=== PATIENT | female | born 1930 | race Caucasian/White ===

== ENCOUNTER 2018-09-04 09:58 | Inpatient (IN) | payer MEDICARE, BC ==
[2018-09-04] MEDS ORDERED: Ondansetron INJ* 2 MG/ML VIAL IV ONE (10:20)
[2018-09-04] MEDS ORDERED: NS 0.9% 1000 ML* 1,000 ML IV ONE (10:20)
[2018-09-04] MEDS ORDERED: Morphine INJ* 4 MG/ML 1 ML SYRINGE (NEW SYRINGE VERSION) IV ONE (10:20)
--- NOTE | 2018-09-04 10:26 | ED ---
Lower Extremity - HPI Summary HPI Summary: Patient is a 87 y/o F w/ c/o left hip pain and inability to move her LLE. Patient was chasing her cat around her home when she had an unwitnessed fall this morning. No LOC is reported, patient is A&Ox3. Patient is on ASA, no blood thinners otherwise reported. On triage, pain is rated 8/10, . Home medications and allergies are reviewed. - History of Current Complaint Chief Complaint: EDHipPelvisInjury Stated Complaint: FALL, LEFT HIP PAIN Time Seen by Provider: 09/04/18 10:14 Hx Obtained From: Patient Mechanism Of Injury: Fall From A Standing Position Onset of Pain: Immediate, Prior to Arrival Onset/Duration: Hours - onset this morning Severity Currently: Severe - 8/10 Pain Intensity: 8 Pain Scale Used: 0-10 Numeric - 8/10 Timing: Constant Location: Is Discrete @ - left hip Associated Signs And Symptoms: Positive: Other - difficulty moving LLE - Allergies/Home Medications Allergies/Adverse Reactions: Allergies Allergy/AdvReac Type Severity Reaction Status Date / Time paroxetine Allergy Rash Verified 09/04/18 13:37 Penicillins Allergy Rash And Verified 09/04/18 13:37 Itching Home Medications: Home Medications Arformoterol (NF) [Brovana(NF)] 15 mcg INH BID 09/04/18 [History Confirmed 09/04] Aspirin EC TAB* [Ecotrin EC Low Dose 81 MG*] 81 mg PO DAILY 09/04/18 [History Confirmed 09/04/18] Atorvastatin* [Lipitor*] 40 mg PO DAILY 09/04/18 [History Confirmed 09/04/18] Budesonide NEB* [Pulmicort NEB*] 0.5 mg INH BID 09/04/18 [History Confirmed ] EPINEPHrine [Epipen 2-Steve] 0.3 mg IM ONCE PRN 09/04/18 [History Confirmed ] Empagliflozin [Jardiance] 10 mg PO DAILY 09/04/18 [History Confirmed 09/04/18] Fexofenadine (NF) [Hannah 180 (NF)] 180 mg PO DAILY 09/04/18 [History Confirmed 09/04/18] Ibuprofen TAB* [Advil TAB*] 400 - 600 mg PO DAILY PRN 09/04/18 [History Confirmed 09/04/18] Ipratropium 0.5MG/2.5ML NEB* [Atrovent 0.5 MG NEB.GREG*] 0.5 mg INH BID 09/04/18 [History Confirmed 09/04/18] Levothyroxine TAB* [Synthroid TAB*] 75 mcg PO DAILY 09/04/18 [History Confirmed 09/04/18] Losartan TAB* [Cozaar TAB*] 100 mg PO DAILY 09/04/18 [History Confirmed 09/04/18 ] Montelukast Sodium TAB* [Singulair TAB*] 10 mg PO QPM 09/04/18 [History Confirmed 09/04/18] Sertraline* [Zoloft*] 100 mg PO DAILY 09/04/18 [History Confirmed 09/04/18] SitaGLIPtin (NF) [Januvia (NF)] 100 mg PO DAILY 09/04/18 [History Confirmed ] Tiotropium CAP.INH* [Spiriva CAP.INH*] 1 cap.inh INH DAILY 09/04/18 [History Confirmed 09/04/18] glipiZIDE TAB.XL* [Glucotrol XL*] 10 mg PO DAILY 09/04/18 [History Confirmed ] metFORMIN* [Glucophage 1000 MG TAB *] 1,000 mg PO BID 09/04/18 [History Confirmed 09/04/18] PMH/Surg Hx/FS Hx/Imm Hx Endocrine/Hematology History: Reports: Hx Diabetes Cardiovascular History: Reports: Hx Hypercholesterolemia, Hx Hypertension Respiratory History: Reports: Hx Asthma Sensory History: Reports: Hx Contacts or Glasses, Hx Hearing Problem Opthamlomology History: Reports: Hx Contacts or Glasses Infectious Disease History: No Infectious Disease History: Denies: Traveled Outside the [place] in Last 30 Days - Family History Known Family History: Negative: Blood Disorder - Social History Alcohol Use: None Substance Use Type: Reports: None Smoking Status (MU): Never Smoked Tobacco Have You Smoked in the Last Year: No Review of Systems Positive: Other - left hip pain, difficulty moving LLE Negative: Syncope All Other Systems Reviewed And Are Negative: Yes Physical Exam - Summary Physical Exam Summary: Appearance: Well appearing, no pain distress Skin: warm, dry, reflects adequate perfusion Head/face: normal Eyes: EOMI, DILSHAD ENT: normal Neck: supple, non-tender Respiratory: CTA, breath sounds present Cardiovascular: RRR, pulses symmetrical Abdomen: non-tender, soft Bowel: present Musculoskeletal: tenderness at left hip, restriction of movement left leg, no neurovascular deficit is noted, no other abnormal findings. Neuro: normal, sensory motor intact, A&Ox3 Triage Information Reviewed: Yes Vital Signs On Initial Exam: Initial Vitals Temp Pulse Resp BP Pulse Ox 97.5 F 92 18 182/85 96 09/04/18 10:00 09/04/18 10:00 09/04/18 10:00 09/04/18 10:00 09/04/18 10:00 Vital Signs Reviewed: Yes Diagnostics - Vital Signs Vital Signs Temp Pulse Resp BP Pulse Ox 09/04/18 10:00 97.5 F 92 18 182/85 96 - Laboratory Result Diagrams: 09/04/18 11:30 09/04/18 11:30 Lab Statement: Any lab studies that have been ordered have been reviewed, and results considered in the medical decision making process. - Radiology CXR Radiology Interpretation Completed By: Radiologist Summary of Radiographic Findings: No evidence for acute findings, this report was reviewed by ED physician. hip/pelvis x-ray Radiology Interpretation Completed By: Radiologist Summary of Radiographic Findings: IMPRESSION: SLIGHTLY COMMINUTED MILDLY DISPLACED INTERTROCHANTERIC FRACTURE OF THE LEFT. FEMUR. THIS REPORT WAS REVIEWED BY ED PHYSICIAN. - EKG 1055 Cardiac Rate: NL - rate of 94 bpm EKG Rhythm: Sinus Rhythm Summary of EKG Findings: no acute changes. Re-Evaluation - Re-Evaluation First Eval Re-Evaluation Time: 11:14 Comment: Discussed x-ray results and consult with Dr. Panchal with patient. Plan of care was discussed as well. Patient is agreeable with admission. Lower Extremity Course/Dx - Course Course Of Treatment: Patient is a 87 y/o F w/ c/o left hip pain and inability to move her LLE. Patient was chasing her cat around her home when she had an unwitnessed fall this morning. No LOC is reported, patient is A&Ox3. Phyiscal exam showed tenderness at left hip, restriction of movement left leg, no neurovascular deficit is noted, no other abnormal findings. During ED course, patient received fluids, Zofran and morphine. EKG showed sinus rhythm w/ rate of 94 BPM, no acute changes. CXR showed no evidence for acute findings. HIP/ PELVIS X-RAY: IMPRESSION: SLIGHTLY COMMINUTED MILDLY DISPLACED INTERTROCHANTERIC FRACTURE OF THE LEFT. FEMUR. Dr. Panchal was consulted on patient's hip fracture. Admission is recommended. 1215 - Patient's case was discussed with Dr. Mack. Dr. Mack accepts patient for admission. Patient is agreeable with admission. Dx of left hip fracture. - Diagnoses Differential Diagnosis/HQI/PQRI: Positive: Dislocation, Fracture (Closed) Provider Diagnoses: Hip fracture, left - Physician Notifications Discussed Care Of Patient With: Vinh Panchal Time Discussed With Above Provider: 11:13 Instructed by Provider To: Other - 1113 - Dr. Panchal was consulted on patient' s hip fracture. 1215 - Patient's case was discussed with Dr. Mack. Dr. Mack accepts patient for admission. Discharge - Sign-Out/Discharge Documenting (check all that apply): Patient Departure - admit - Discharge Plan Condition: Good Disposition: ADMITTED TO [facility] - Billing Disposition and Condition Condition: GOOD Disposition: Admitted to [facility] - Attestation Statements Document Initiated by Scribe: Yes Documenting Scribe: John Billy Provider For Whom Scribe is Documenting (Include Credential): Meet Gomez MD Scribe Attestation: IJohn , scribed for Meet Gomez MD on 09/04/18 at 1437. Scribe Documentation Reviewed: Yes Provider Attestation: The documentation as recorded by the kanikaibJohn morales accurately reflects the service I personally performed and the decisions made by me, Meet Gomez MD
--- NOTE | 2018-09-04 11:10 | RAD ---
INDICATION: Hip fracture. COMPARISON: Comparison is made with a prior study from July 02, 2016. TECHNIQUE: An AP supine film of the chest was obtained. FINDINGS: The heart is within normal limits in size. Mediastinal and hilar contours appear within normal limits. The lungs are hyperinflated and clear. No pleural effusion is seen. IMPRESSION: NO EVIDENCE FOR ACUTE FINDING.
--- NOTE | 2018-09-04 11:13 | RAD ---
INDICATION: Left hip injury. COMPARISON: There are no relevant prior studies available for comparison. TECHNIQUE: An AP view of the pelvis and frontal and lateral views of the left hip were obtained. FINDINGS: There is a slightly comminuted intertrochanteric fracture of the left femur with slight separation of the fracture fragments. 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 IMPRESSION: SLIGHTLY COMMINUTED MILDLY DISPLACED INTERTROCHANTERIC FRACTURE OF THE LEFT FEMUR.
[2018-09-04 12:08] LABS: ABS Basophils 0.1 10^3/ul (0-0.2); ABS Eosinophils 0.2 10^3/ul (0-0.6); ABS Lymphocytes 1.7 10^3/ul (1.0-4.8); ABS Monocytes 0.5 10^3/ul (0-0.8); ABS Neutrophils 8.4 10^3/ul (1.5-7.7); ABS Nucleated RBC 0 10^3/ul; Eosinophil % 2.3 % (0-6); Hematocrit 38 % (35-47); Hemoglobin 12.1 g/dl (12.0-16.0); Lymphocyte % 15.4 % (25-47); Mean Corpuscular HGB Conc 32 g/dl (31-36); Mean Corpuscular Hemoglobin 26 pg (27-31); Mean Corpuscular Volume 82 fL (80-97); Nucleated Red Blood Cells % 0; Platelet Count Platelets clumped. 10^3/ul (150-450); Red Cell Distribution Width 16 % (10.5-15); White Blood Count 10.9 10^3/ul (3.5-10.8)
[2018-09-04 12:12] LABS: INR 0.93 (0.77-1.02)
[2018-09-04 12:13] LABS: EGFR Non-African American 54.8 (>60)
[2018-09-04] MEDS ORDERED: Albuterol 2.5 MG/3 ML NEB.SOL* (0.083%) INH PRN (13:29)
[2018-09-04] MEDS ORDERED: Acetaminophen TAB* 325 MG PO PRN (13:29)
[2018-09-04] MEDS ORDERED: Morphine INJ* 4 MG/ML 1 ML SYRINGE (NEW SYRINGE VERSION) IV PRN (13:29)
[2018-09-04] MEDS ORDERED: oxyCODONE/Acetamin 5/325 MG* TAB PO PRN (13:29)
[2018-09-04] MEDS ORDERED: Albuterol/Ipratropium NEB.SOL* Albuterol 2.5 MG/Ipratropium 0.5 MG 3 ML INH PRN (13:46)
[2018-09-04] MEDS ORDERED: Dextrose 50% Syringe 50 ML* 25 GM/50 ML SYRINGE IV PUSH PRN (13:48)
[2018-09-04] MEDS ORDERED: Albuterol HFA INHALER* 8 gm MDI INH PRN (14:02)
[2018-09-04 16:05] LABS: Platelet Count Platelets clumped. 10^3/ul (150-450)
[2018-09-04] MEDS: Heparin VIAL(*) 5000 UNITS/ML VIAL (FIVE THOUSAND) SUBCUT SCH ×2 (16:12→21:44)
[2018-09-04] MEDS: Montelukast Sodium TAB* 10 MG PO SCH (17:23)
[2018-09-04] MEDS: Morphine INJ* 4 MG/ML 1 ML SYRINGE (NEW SYRINGE VERSION) IV PRN (17:23)
[2018-09-04] MEDS: Insulin LISPRO* 1 UNITS UNIT SUBCUT SCH ×2 (18:33→21:43)
[2018-09-04] MEDS: Budesonide NEB* 0.5 MG/2 ML NEB.SOLN INH SCH (19:31)
--- NOTE | 2018-09-04 20:50 | HP ---
AMENDED REPORT NOW INCLUDES DESIGNATED COSIGNER CC: Dr. Abahy Fink * HISTORY AND PHYSICAL: DATE OF ADMISSION: 09/04/18 PRIMARY CARE PHYSICIAN: Dr. Abhay Fink. PROVIDER: Nesha Lora NP ATTENDING PHYSICIAN: Dr. Mack * (dictated by Nesha Lora NP). CONSULTING PHYSICIAN: Dr. Panchal. CHIEF COMPLAINT: Left hip pain status post fall. HISTORY OF PRESENT ILLNESS: This is an 87-year-old female with a past medical history of type 2 diabetes (not on insulin); asthma; hypertension; hyperlipidemia; hypothyroidism; depression, who presented to the ED with left hip pain and inability to move her left lower extremity after a mechanical fall. The patient was in her usual state of health this morning, but she was chasing her cat around the house and slipped and fell. She denies loss of consciousness and she did not hit her head. Prior to this incident, she did not feel any dizziness or lightheadedness, chest pain, or shortness of breath. Upon arrival to the ED, the patient was in 8/10 pain and was given morphine with some relief. The patient is alert and oriented x3. She is on aspirin, but no blood thinners are reported. In the ED, her vital signs were stable and labs were unremarkable. She underwent an EKG, which showed normal sinus rhythm without any evidence of ischemia or infarction; chest x-ray, which showed no evidence of acute findings; a hip and pelvis x-ray, which showed a slightly comminuted, mildly displaced intertrochanteric fracture of the left femur. The patient was evaluated by Dr. Panchal in the ED with a plan for a gamma nail procedure for the left hip fracture repair tomorrow. Hospitalist team was asked to evaluate this patient for admission. She will be admitted to the hospitalist service for left hip fracture in anticipation of surgical repair. PAST MEDICAL HISTORY: Diabetes, type 2, not on home insulin; asthma; hypertension; hyperlipidemia; hypothyroidism; depression. PAST SURGICAL HISTORY: Tonsillectomy, cataract surgery. HOME MEDICATIONS: 1. Glipizide 10 mg p.o. daily. 2. Singulair 10 mg p.o. q.p.m. 3. Aspirin 81 mg p.o. daily. 4. Synthroid 75 mcg p.o. daily. 5. Januvia 100 mg p.o. daily. 6. Zoloft 100 mg p.o. daily. 7. Losartan 100 mg p.o. daily. 8. Hannah 180 mg p.o. daily. 9. Empagliflozin 10 mg p.o. daily. 10. Metformin 1000 mg p.o. daily. 11. Atorvastatin 40 mg p.o. daily. 12. Ibuprofen 400 to 600 mg p.o. daily p.r.n. 13. Epinephrine/EpiPen 0.3 mg IM once p.r.n. for bee stings. The patient is also prescribed the following inhalers; however, she reports infrequent use: 1. Pulmicort is prescribed 0.5 mg INH b.i.d. 2. Atrovent 0.5 mg nebulizer is prescribed 0.5 mg INH b.i.d. 3. Spiriva is prescribed 1 cap INH daily. 4. Brovana is prescribed 15 mcg INH b.i.d. ALLERGIES: PAXIL, rash and itching; PENICILLINS, rash and itching; BEE STINGS. FAMILY HISTORY: The patient has a family history of heart disease; both her mother and father of myocardial infarctions. The patient has no family history of diabetes or cancer. SOCIAL HISTORY: The patient does not smoke cigarettes and does not drink alcohol. The patient would like to be a full code. The patient's medical decision maker is her daughter, Blossom Rubi. REVIEW OF SYSTEMS: I performed a 14-point review of systems. All the pertinent positives and negatives are mentioned in the history of present illness. The remaining review of systems is negative. PHYSICAL EXAMINATION GENERAL APPEARANCE: The patient is alert, pleasant, and appears to be in no acute distress except when moving her left lower extremity. VITAL SIGNS: Temperature 97.5, heart rate 86, blood pressure 113/66, O2 sat 98 % on room air. HEENT: Normocephalic, atraumatic. Pupils are equal, round, and reactive to light and accommodation. Extraocular movements are intact. NECK: Supple. No lymphadenopathy noted. No JVD appreciated. RESPIRATORY: No accessory muscle use. Lungs are clear to auscultation. Normal work of breathing. The patient is able to speak in full sentences without distress. CARDIAC: Regular rate and rhythm. S1 and S2 present. No murmurs, rubs, or gallops heard. ABDOMEN: Soft, nontender, and nondistended. There are bowel sounds x4. EXTREMITIES: No lower extremity edema. DP and PT pulses are 2+ and symmetric. MUSCULOSKELETAL: No clubbing or cyanosis noted. Tenderness at the left hip, restriction of movement of the left hip. The patient exhibited 5/5 strength in upper extremities; however, motion limited by pain in lower extremities. NEURO: The patient is alert and oriented x3. Sensation is intact. PSYCH: The patient is calm and cooperative. SKIN: The are no rashes or abnormalities seen. DIAGNOSTIC STUDIES/LAB DATA: White blood cell count 10.9, hemoglobin 12.1, hematocrit 38, MCV 82, MCH 26, MCHC 32, RDW 16, and platelet count, the platelets were clumped but this number will be redrawn. Coagulation: INR 0.93 , aPTT 24.8. Sodium 139, potassium 4.5, chloride 105, carbon dioxide 27, BUN 12 , creatinine 0.96, glucose 182, calcium 9.4. Total bilirubin 0.5, AST 17, ALT 13, alk phos 137. Total protein 7.2, albumin 4.0, globulin 3.2, albumin/ globulin ratio 1.3. EKG: normal sinus rhythm without evidence of ischemia. Hip/Pelvis x-ray: Slightly comminuted and mildly displaced intertrochanteric fracture of the left femur. Chest x-ray: no evidence for acute findings. ASSESSMENT AND PLAN: This is an 87-year-old female with a past medical history significant for diabetes, asthma, hypertension, hyperlipidemia, and hypothyroidism, who presented to the ED with left hip pain status post mechanical fall and will be admitted to the hospitalist service for gamma nail procedure for her left hip fracture and will be followed by Dr. Panchal and the ortho team as well. 1. Left hip fracture. Pain will be controlled with IV morphine. Received 4 mg IV morphine in the ED. Can add additional agents as necessary. The patient has been evaluated by Orthopedics and they are recommending she undergo a gamma nail procedure for her left hip fracture as demonstrated on her hip and pelvis x -ray. In anticipation of this, her home aspirin is being held. The patient's functional capacity is a METs score of 4. She is able to walk up a flight of stairs with a grocery bag without shortness of breath or chest pain. The patient denies chest pain, shortness of breath, syncope, or palpitations. The patient's only cardiac diagnosis is hypertension. She denies a history of ischemic, valvular, or myopathic disease. She does have a history of diabetes, not on insulin, and she does not have a history of cerebrovascular or peripheral artery disease. The patient underwent an EKG today, which showed normal sinus rhythm without evidence of ischemia. She also underwent a chest x- ray today, which showed no acute cardiopulmonary disease. Her preoperative creatinine is 0.96. According to the RCRI, she has no risk factors, which placed her at a 0.4% risk of cardiac event. No further cardiac workup is required at this time. Fouzia Rubi is medically optimized and may proceed for the anticipated procedure. 2. Diabetes. Glucose in the ED is 182. The patient's oral medication is on hold. We will start her on sliding scale lispro a.c., h.s. as well as a.c., h.s. fingersticks. We will also follow up hemoglobin A1c. 3. Asthma. No evidence of acute exacerbation. No wheezing on exam. The patient does not report shortness of breath and is satting 97% on room air. The patient's med list contains multiple inhalers including Pulmicort, Spiriva, Brovana, and Atrovent nebulizer; however, the patient reports very infrequent use and does not recall the last time she has had an exacerbation. We will proceed with scheduled Pulmicort and DuoNeb p.r.n. as well as albuterol inhaler p.r.n. 4. Hypothyroid. Continue the patient's home Synthroid 75 mcg p.o. daily. 5. Hypertension. The patient was initially hypertensive upon arrival to the ED in the setting of increased pain; however, after she has received morphine, her blood pressure is now systolic 104 to one teens and we will continue holding her antihypertensives and can reevaluate later as necessary. 6. Hyperlipidemia. We will continue the patient's home Lipitor. 7. Diet: The patient is on a carb controlled diet. She will be n.p.o. after midnight for her anticipated procedure. 8. DVT prophylaxis: The patient will be on heparin subcu until midnight in anticipation of her procedure tomorrow. She will also have SCDs as tolerated. 9. Code status: Full code. 10. Disposition: Inpatient. Anticipate discharge when medically stable. TIME SPENT: Time spent for this admission was 60 minutes; 35 minutes was spent with the patient discussing medications, past medical history, and events leading up to their arrival today and performing a physical exam. The case has been reviewed with the attending, Dr. Mack, who agrees with the plan of care. NESHA LORA, ADRIANNA [id number]/CPS #: [id number] ADILENE
--- NOTE | 2018-09-04 22:21 | CONS ---
INITIAL BRIEF CONSULT REPORT: DATE OF CONSULT: 09/04/18 The patient was seen by myself in the emergency department for a left intertrochanteric hip fracture. The plan is to admit the patient to the floor. She may eat today, but she will be NPO after midnight. Plan is to take her to the OR tomorrow morning on 09/05/18 for a gamma nail pending medical clearance. A full consultation report to be dictated shortly. ODILIA CRESPO CONSULTATION REPORT: DATE OF CONSULT: 09/04/18 ATTENDING SURGEON: Dr. Vinh Panchal. CHIEF COMPLAINT: Left hip pain. HISTORY OF PRESENT ILLNESS: The patient is an 87-year-old female who presented to the ER with left hip pain and inability to move her left lower extremity after a fall. She states she was chasing her cat around the home when she had an unwitnessed fall on to her left hip. She denies any prior hip fractures or pain in the hip. She denies any prior surgeries. She is on aspirin, no blood thinners otherwise. She rates her pain as an 8/10. She denies history of DVT or PE. She denies numbness, tingling, fever, or chills, and is doing well otherwise. PAST MEDICAL HISTORY: Diabetes, hypercholesterolemia, hypertension, asthma, decreased hearing. PAST SURGICAL HISTORY: No prior surgeries. MEDICATIONS: Home medications on admission: 1. Glipizide 10 mg 1 by mouth daily. 2. Singulair 10 mg 1 by mouth in the evening. 3. Aspirin 81 mg 1 by mouth daily. 4. Levothyroxine 75 mcg 1 by mouth daily. 5. Januvia 100 mg 1 by mouth daily. 6. Zoloft 50 mg tab, 2 tabs by mouth daily. 7. Losartan 25 mg tablets 100 mg by mouth daily. 8. Hannah 180 mg 1 by mouth daily. 9. Pulmicort 0.5 mg/2 mL, 0.5 mg inhalation twice a day. 10. Atrovent 0.5 mg inhalation twice a day. 11. Jardiance 10 mg by mouth daily. 12. Metformin 1000 mg by mouth twice a day. 13. Lipitor 40 mg 1 by mouth daily. 14. Spiriva 1 cap/18 mcg, 1 cap inhalation daily. 15. Ibuprofen 200 mg, 400 to 600 mg by mouth daily as needed. 16. EpiPen 0.3 mg/0.3 mL IM once as needed. 17. Brovana 15 mcg/2 mL, 15 mcg inhalation twice a day. ALLERGIES: PAROXETINE and PENICILLIN. FAMILY HISTORY: Denies pertinent family history. SOCIAL HISTORY: She denies tobacco use, alcohol use, or illegal drug use. She lives at home. She is normally an independent ambulator. REVIEW OF SYSTEMS: A 14-point review of systems was reviewed with the patient. Positive for left hip pain, difficulty moving left lower extremity, otherwise negative. Denies chest pain, shortness of breath, fever, chills, history of DVT or PE, history of bleeding disorder. PHYSICAL EXAM: General: An 87-year-old, well-developed, well-nourished female , in no acute distress. Alert and oriented x3. Appropriate mood and affect. Appropriate balance and coordination of the lower extremities. Vitals on admission, temperature 98.8, pulse rate 84, respiratory rate 18, O2 sat 99% on room air, blood pressure 114/84, weight 145 pounds, height 5 feet 2 inches. HEENT: Normocephalic, atraumatic. PERRLA. Throat clear. Neck: Supple. Pulmonary: Lungs clear to auscultation bilaterally. No wheezing, rhonchi, or rales. Cardio: Regular rate and rhythm. S1 and S2. No murmurs, gallops, or rubs. No edema. Abdomen: Positive bowel sounds, soft, nontender. Extremities : Left lower extremity is intact. No warmth or erythema. Tenderness to palpation over the left hip in the upper thigh, nontender over the knee. Calf is soft and nontender. +5/5 strength to ankle dorsiflexion and plantar flexion. +2 DP pulse. Sensation is intact to light touch distally. Neuro: Alert and oriented x3. Cranial nerves grossly intact. Sensation is intact to light touch distally. DIAGNOSTIC STUDIES: Multiple view x-rays of the left hip revealed a mildly displaced intertrochanteric fracture of the left femur. IMPRESSION: Left intertrochanteric mildly displaced fracture of the left femur. PLAN: The patient is an 87-year-old female who is admitted to the hospital for left femur intertrochanteric fracture after a fall on 09/04/18, chasing her cat. She was admitted for medical clearance and the plan is for her to go to the OR on 09/05/[address] Panchal for gamma nail pending medical clearance. We will continue to follow her postoperatively. ODILIA CRESPO [id number]/CPS #: [id number]/CPS #: [id number] ADILENE
--- NOTE | 2018-09-04 22:46 | CONS ---
BRIEF CONSULT REPORT: DATE OF CONSULT: 09/04/18 The patient was seen by myself in the emergency department for a left intertrochanteric hip fracture. The plan is to admit the patient to the floor. She may eat today, but she will be NPO after midnight. Plan is to take her to the OR tomorrow morning on 09/05/18 for a gamma nail pending medical clearance. A full consultation report to be dictated shortly. ODILIA CRESPO [id number]/[facility] #: [id number] MTDD
[2018-09-05] MEDS: Morphine INJ* 4 MG/ML 1 ML SYRINGE (NEW SYRINGE VERSION) IV PRN ×2 (00:33→08:54)
[2018-09-05 01:30] LABS: Urine Appearance Clear; Urine Blood Negative (Negative); Urine Color Yellow; Urine Ketones Trace (Negative); Urine Protein Negative (Negative); Urine Red Blood Cell Trace(0-2/hpf) (Absent); Urine Specific Gravity 1.026 (1.010-1.030); Urine Urobilinogen Negative (Negative); Urine White Blood Cell Trace(0-5/hpf) (Absent)
[2018-09-05] MEDS: Levothyroxine TAB* 75 MCG TAB PO SCH ×2 (05:30→06:09)
[2018-09-05 05:50] LABS: ABS Basophils 0 10^3/ul (0-0.2); ABS Eosinophils 0 10^3/ul (0-0.6); ABS Lymphocytes 1.5 10^3/ul (1.0-4.8); ABS Monocytes 0.6 10^3/ul (0-0.8); ABS Neutrophils 5.5 10^3/ul (1.5-7.7); ABS Nucleated RBC 0 10^3/ul; Eosinophil % 0.4 % (0-6); Hematocrit 29 % (35-47); Hemoglobin 9.3 g/dl (12.0-16.0); Lymphocyte % 19.3 % (25-47); Mean Corpuscular HGB Conc 32 g/dl (31-36); Mean Corpuscular Hemoglobin 26 pg (27-31); Mean Corpuscular Volume 83 fL (80-97); Nucleated Red Blood Cells % 0; Red Blood Count 3.54 10^6/ul (4.00-5.40); Red Cell Distribution Width 17 % (10.5-15); White Blood Count 7.6 10^3/ul (3.5-10.8)
[2018-09-05 06:00] LABS: EGFR Non-African American 51.7 (>60)
[2018-09-05 06:12] LABS: Platelet Count Platelets clumped. 10^3/ul (150-450)
[2018-09-05] MEDS: Budesonide NEB* 0.5 MG/2 ML NEB.SOLN INH SCH ×2 (07:45→19:58)
[2018-09-05] MEDS: Insulin LISPRO* 1 UNITS UNIT SUBCUT SCH ×4 (08:57→22:01)
[2018-09-05] MEDS: Atorvastatin* 40 MG TAB PO SCH (08:57)
[2018-09-05] MEDS: Sertraline* 100 MG TAB PO SCH (08:57)
[2018-09-05] MEDS ORDERED: ceFAZolin 2 GM PREMIX in ORs 2 GM/50 ML BAG IVPB ONE (12:59)
--- NOTE | 2018-09-05 13:18 | PN ---
Progress Note - Progress Note Date of Service: 09/05/18 SOAP: Subjective: 87yo female, fell due to a cat, sustaining a minimally displaced intertroch fx. Also c/o left shoulder pain this AM. Objective: No ecchymosis, skin intact over the shoulder. Has IV board holding elbow straight, pain with initiating arm elevation. I can passively do small circles and there is no crepitance and no pain. Assessment: Left hip fx, left shoulder pain Plan: Gamma nail for the left hip today, will do an exam under anesthesia to check shoulder and obtain x-rays of the shoulder. Platelets clumped again this AM, repeat CBC sent. If clumped again, will likely get heme consult.
[2018-09-05] MEDS ORDERED: Midazolam* 1 MG/ML 2 ML VIAL (2 MG) ONE (13:56)
[2018-09-05] MEDS ORDERED: fentaNYL* 50 MCG/ML 2 ML VIAL (100 MCG VIAL) ONE (13:56)
[2018-09-05] MEDS ORDERED: Bupivacaine 0.25% W/EPI* 10 ML SDV ONE ×2 (14:22)
[2018-09-05] MEDS ORDERED: Ondansetron INJ* 2 MG/ML VIAL IV PRN ×2 (14:52→17:05)
[2018-09-05] MEDS ORDERED: fentaNYL* 50 MCG/ML 2 ML VIAL (100 MCG VIAL) IV PRN (14:52)
[2018-09-05] MEDS ORDERED: Naloxone* 0.4 MG/ML 1 ML VIAL IV PRN (14:52)
[2018-09-05] MEDS ORDERED: EPHEDrine (Pressors)* 50 MG/ML VIAL ONE (15:12)
[2018-09-05] MEDS ORDERED: Phenylephrine INJ* 10 MG/ML 1 ML VIAL (10 MG) ONE (15:12)
--- NOTE | 2018-09-05 15:30 | PN ---
Subjective Date of Service: 09/05/18 Interval History: resting in bed c/o left hip and left shoulder pain. Denies chest pain or shortness of breath. Denies abd pain n/v/d. denies fever or chills Family History: Unchanged from Admission Social History: Unchanged from Admission Past Medical History: Unchanged from Admission Objective Active Medications: Acetaminophen (Tylenol Tab*) 650 mg PO Q4H PRN PRN Reason: FEVER/PAIN Albuterol (Ventolin Hfa Inhaler*) 1 puff INH Q4H PRN PRN Reason: SOB/WHEEZING Albuterol/Ipratropium (Duoneb (Albuterol 2.5 Mg/Ipratropium 0.5 Mg)) 1 neb INH [id number] AWAKE PRN PRN Reason: SOB/WHEEZING Last Admin: 09/04/18 15:11 Dose: 1 neb Atorvastatin Calcium (Lipitor*) 40 mg PO DAILY [facility] Last Admin: 09/05/18 08:57 Dose: Not Given Budesonide (Pulmicort Neb*) 0.5 mg INH BID [facility] Last Admin: 09/05/18 07:45 Dose: 0.5 mg Dextrose (D50w Syringe 50 Ml*) 12.5 gm IV PUSH .FOR FS < 60 - SS PRN PRN Reason: FS < 60 Fentanyl Citrate (Fentanyl*) 10 mcg IV Q2M PRN PRN Reason: PAIN - MODERATE Sodium Chloride (Ns 0.9% 1000 Ml*) 1,000 mls @ 75 mls/hr IV PER RATE [facility] Last Admin: 09/05/18 00:00 Dose: 75 mls/hr Cefazolin Sodium/Dextrose (Kefzol 2 Gm Premix In Ors(*)) 2 gm in 50 mls @ 100 mls/hr IVPB ONCALL ONE Stop: 09/06/18 13:14 Insulin Human Lispro (Humalog*) 0 units SUBCUT ACHS [facility]; Protocol Last Admin: 09/05/18 11:55 Dose: Not Given Levothyroxine Sodium (Synthroid Tab*) 75 mcg PO DAILY@0600 [facility] Last Admin: 09/05/18 06:09 Dose: Not Given Levothyroxine Sodium (Synthroid Inj*) 37.5 mcg IV 0600 ONE Stop: 09/06/18 06:01 Montelukast Sodium (Singulair Tab*) 10 mg PO QPM [facility] Last Admin: 09/04/18 17:23 Dose: 10 mg Morphine Sulfate (Morphine Inj (Syringe)*) 2 mg IV Q2H PRN PRN Reason: PAIN - SEVERE Last Admin: 09/05/18 08:54 Dose: 2 mg Naloxone HCl (Narcan*) 0.08 mg IV Q2M PRN PRN Reason: severe induced resp depression Ondansetron HCl (Zofran Inj*) 4 mg IV ONCE PRN PRN Reason: NAUSEA/VOMITING Sertraline HCl (Zoloft*) 100 mg PO DAILY [facility] Last Admin: 09/05/18 08:57 Dose: Not Given Vital Signs - 8 hr 09/05/18 09/05/18 09/05/18 07:44 07:47 08:00 Temperature 98.7 F Pulse Rate 95 92 Respiratory 18 17 18 Rate Blood Pressure 123/61 (mmHg) O2 Sat by Pulse 95 96 Oximetry 09/05/18 09/05/18 09/05/18 08:54 09:50 11:42 Temperature 98.8 F Pulse Rate 90 Respiratory 18 16 18 Rate Blood Pressure 123/48 (mmHg) O2 Sat by Pulse 96 Oximetry Oxygen Devices in Use Now: None Appearance: alert and oriented x3 , no acute distress Eyes: No Scleral Icterus Ears/Nose/Mouth/Throat: Clear Oropharnyx, Mucous Membranes Moist Neck: NL Appearance and Movements; NL JVP, Trachea Midline Respiratory: Symmetrical Chest Expansion and Respiratory Effort, Clear to Auscultation Cardiovascular: NL Sounds; No Murmurs; No JVD, No Edema Abdominal: NL Sounds; No Tenderness; No Distention Extremities: No Edema, No Clubbing, Cyanosis, - - radial pulses + 2 bilat, left shoulder with tenderness with palpation. left hip/ thigh pain Skin: No Rash or Ulcers Neurological: Alert and Oriented x 3 Nutrition: Taking PO's Result Diagrams: 09/06/18 11:05 09/06/18 05:28 Assess/Plan/Problems-Billing Assessment: Ms. Rubi is a 87 y.o female with a pmhx of asthma, DM, HLD, hypothyroid and htn who presented to [facility] after a fall at home c/o left hip and left shoulder pain. Patient was found to have a left hip fracture. - Patient Problems (1) Hip fracture, left Current Visit: Yes Status: Acute Code(s): S72.002A - FRACTURE OF UNSP PART OF NECK OF LEFT FEMUR, INIT SNOMED Code(s): 029025788 Comment: OR today management per ortho Pt/OT per ortho DVT prop per ortho (2) Asthma Current Visit: No Status: Acute Code(s): J45.909 - UNSPECIFIED ASTHMA, UNCOMPLICATED SNOMED Code(s): 221818202 Comment: Lungs clear. Continue home medications. (3) Anemia Current Visit: Yes Status: Acute Code(s): D64.9 - ANEMIA, UNSPECIFIED SNOMED Code(s): 685442191 Comment: suspect this is acute blood loss anemia d/t left hip fracture - this could also be partially dilutional - will continue to monitor h/h and treat if needed (4) HTN (hypertension) Current Visit: Yes Status: Acute Code(s): I10 - ESSENTIAL (PRIMARY) HYPERTENSION SNOMED Code(s): 80332275 Comment: -will resume losartan after surgery (5) HLD (hyperlipidemia) Current Visit: Yes Status: Acute Code(s): E78.5 - HYPERLIPIDEMIA, UNSPECIFIED SNOMED Code(s): 88907556 Comment: continue atrovasatin (6) Hypothyroid Current Visit: Yes Status: Acute Code(s): E03.9 - HYPOTHYROIDISM, UNSPECIFIED SNOMED Code(s): 35885435 Comment: continue levothyroxine will check tsh in the AM (7) DM2 (diabetes mellitus, type 2) Current Visit: No Status: Acute Comment: Hold home oral hypoglycemics. Lispro SS fingersticks AC/hs (8) DVT prophylaxis Current Visit: No Status: Acute Code(s): VGS2990 - SNOMED Code(s): 430268517 Comment: SCD's (9) Full code status Current Visit: Yes Status: Acute Code(s): Z78.9 - OTHER SPECIFIED HEALTH STATUS SNOMED Code(s): 595830970 Status and Disposition: inpatient - may need STR at discharge
--- NOTE | 2018-09-05 17:31 | RAD ---
INDICATION: Left hip gamma nail. COMPARISON: Comparison is made with a prior x-ray study of the left hip from September 04, 2018. TECHNIQUE: 59.9 seconds of intermitted fluoroscopic were provided and 4 AP and lateral spot films of the left hip were obtained in the operating room. FINDINGS: The films demonstrate operative reduction and internal fixation of the intertrochanteric fracture with a gamma nail and intramedullary christine in the proximal left femur. IMPRESSION: INTRAOPERATIVE CONTROL FILMS. CPT II Codes: G9500
[2018-09-05] MEDS: Montelukast Sodium TAB* 10 MG PO SCH (17:36)
[2018-09-05] MEDS: oxyCODONE/Acetamin 5/325 MG* TAB PO PRN (18:29)
[2018-09-05] MEDS: NS 0.9% 1000 ML* 1,000 ML IV SCH ×2 (18:29)
[2018-09-05] MEDS: ceFAZolin 1 GM* X 3 DOSES POST-OP Q8H (AddVan) IVPB SCH ×2 (21:50)
--- NOTE | 2018-09-05 23:59 | OP ---
OPERATIVE REPORT: DATE OF OPERATION: 09/05/18 DATE OF : [birth year] SURGEON: Vinh Panchal MD ANESTHESIA: General. PRE-OP DIAGNOSIS: Displaced left intertrochanteric fracture. POST-OP DIAGNOSIS: Displaced left intertrochanteric fracture. OPERATIVE PROCEDURE: Open reduction internal fixation, left intertrochanteric fracture with a short gamma nail. INDICATIONS: Ms. Rubi is an 87-year-old female, who had fallen because of her cat yesterday morning and sustained a displaced left intertrochanteric fracture. She had been brought to the emergency room here at [facility] [place] [place] where x-rays had been taken and found the fracture. She was admitted to the hospitalist service and I had seen her yesterday and discussed with Ms. Rubi and her daughter that an ORIF should work well to hold the bones in place while they heal. This way we can get her up and out of bed and moving fairly quickly. Risks of surgery such as infection, nonhealing of the bones, scar formation, stiffness, DVT, and pulmonary embolism were some of the risks discussed. She had been declared medically optimized and wished to proceed. ESTIMATED BLOOD LOSS: 50 cc. COMPLICATIONS: None. DESCRIPTION OF PROCEDURE: The patient was brought to the OR and an LMA was placed. She was then transferred to the fracture table and care was taken to make sure that she was nicely padded on the extremities and she was positioned on the fracture table such that C-arm could be brought in and good views of the left hip could be obtained. She also was placed into traction and a closed reduction was first performed and I was able to obtain perfect alignment of her fracture. Left hip area was prepped and then draped. Skin over the incisional area was infiltrated using 0.25% Marcaine with epinephrine. A total of 30 cc would be used through the case. Incision was made above the level of the greater trochanter and carried down through the skin and subcutaneous tissues. Fascia was palpated and sharply incised. Using just a curved hemostat, I was able to feel the top side of the greater trochanter and this was spread a little bit to allow for a tract so that I could place the awl. Awl was then placed and adjusted and so thought I had a very good entry point and this was gently pushed inwards. This was checked in AP and lateral planes and adjusted until my alignment was perfect and then this was pushed further in. Guidewire was then slid through the awl and the awl was removed. Positioning appeared quite good. Drill guide was placed over the top side of the awl and the reamer was easily passed. Gamma nail was called for and gamma nail was easily seated by hand. I could seat a little too far down and this had to be pulled upwards a little bit until I liked where the hip screw would enter through the neck and into the head. Guide was placed and skin was again infiltrated and then incised. The guidewire was run and adjusted until I liked the positioning through the neck and into the head. Measuring stick was not present, so we measured the portion of the guidewire sticking out and it appeared that the entire length of the guidewire which was within the bone was approximately 100 mm. Tip was about 5 mm from the edge of the cortex, so I thought 95 mm would be appropriate for a lag screw. Reamer was set for 95 mm and reamed and this seemed to work well. Lag screw was placed and a nice bite was obtained. This was compressed a little bit by using the back thread on the lag screw guide and then the locking screw was placed. Distal dynamic lock was then aligned and in standard fashion a screw was placed. Wounds were irrigated using a bulb syringe and where the hip screw had been placed, the fascia and subcutaneous tissues were approximated using a 2-0 Vicryl. Skin was closed using benny. Sterile dressing was applied. The patient had the LMA removed in the OR and was stable on transfer to the recovery room. [id number]/JONATHAN #: [id number] ADILENE
[2018-09-06] MEDS: Levothyroxine TAB* 75 MCG TAB PO SCH (05:15)
[2018-09-06] MEDS: Heparin VIAL(*) 5000 UNITS/ML VIAL (FIVE THOUSAND) SUBCUT SCH ×3 (05:16→21:55)
[2018-09-06] MEDS: ceFAZolin 1 GM* X 3 DOSES POST-OP Q8H (AddVan) IVPB SCH ×4 (05:18→13:41)
[2018-09-06 05:57] LABS: ABS Basophils 0 10^3/ul (0-0.2); ABS Eosinophils 0 10^3/ul (0-0.6); ABS Monocytes 0.7 10^3/ul (0-0.8); ABS Neutrophils 6.6 10^3/ul (1.5-7.7); ABS Nucleated RBC 0 10^3/ul; Eosinophil % 0.4 % (0-6); Hematocrit 27 % (35-47); Hemoglobin 8.6 g/dl (12.0-16.0); Lymphocyte % 11.7 % (25-47); Mean Corpuscular HGB Conc 32 g/dl (31-36); Mean Corpuscular Hemoglobin 27 pg (27-31); Mean Corpuscular Volume 85 fL (80-97); Nucleated Red Blood Cells % 0; Red Blood Count 3.22 10^6/ul (4.00-5.40); Red Cell Distribution Width 17 % (10.5-15); White Blood Count 8.4 10^3/ul (3.5-10.8)
[2018-09-06] MEDS ORDERED: Levothyroxine INJ* 100 MCG/5 ML VIAL IV ONE (06:00)
[2018-09-06 06:01] LABS: EGFR Non-African American 59.1 (>60)
[2018-09-06 06:14] LABS: Platelet Count Platelets clumped. 10^3/ul (150-450)
[2018-09-06] MEDS: Budesonide NEB* 0.5 MG/2 ML NEB.SOLN INH SCH ×2 (07:16→19:56)
[2018-09-06] MEDS: oxyCODONE/Acetamin 5/325 MG* TAB PO PRN ×3 (07:25→16:41)
[2018-09-06] MEDS: Sertraline* 100 MG TAB PO SCH (09:05)
[2018-09-06] MEDS: Atorvastatin* 40 MG TAB PO SCH (09:06)
[2018-09-06] MEDS: Insulin LISPRO* 1 UNITS UNIT SUBCUT SCH ×4 (09:06→21:56)
[2018-09-06] MEDS ORDERED: Senna TAB PO PRN (09:30)
[2018-09-06] MEDS ORDERED: Magnesium Hydroxide LIQ* 30 ML UDC PO PRN (09:30)
[2018-09-06 11:15] LABS: Hematocrit 29 % (35-47); Hemoglobin 9.1 g/dl (12.0-16.0); Mean Corpuscular HGB Conc 31 g/dl (31-36); Mean Corpuscular Hemoglobin 27 pg (27-31); Mean Corpuscular Volume 85 fL (80-97); Mean Platelet Volume 8.7 um3 (7.4-10.4); Platelet Count 118 10^3/ul (150-450); Red Blood Count 3.42 10^6/ul (4.00-5.40); Red Cell Distribution Width 17 % (10.5-15); White Blood Count 10.6 10^3/ul (3.5-10.8)
[2018-09-06] MEDS: Docusate CAP* 100 MG PO SCH ×2 (12:24→21:04)
[2018-09-06] MEDS ORDERED: ceFAZolin 2 GM PREMIX in ORs 2 GM/50 ML BAG IVPB ONE (12:45)
--- NOTE | 2018-09-06 14:11 | PN ---
Progress Note - Progress Note Date of Service: 09/06/18 SOAP: Subjective: Pt seen and examined sitting comfortably in chair. No complaint of pain. Pt states she would like to go home. Denies CP, SOB, F/C Vital Signs: Temp Pulse Resp BP Pulse Ox 98.1 F 95 16 122/64 91 09/06/18 11:27 09/06/18 11:27 09/06/18 12:30 09/06/18 12:28 09/06/18 11:27 Laboratory Last Values WBC 10.6 10^3/ul (3.5-10.8) 09/06/18 11:05 RBC 3.42 10^6/ul (4.00-5.40) L 09/06/18 11:05 Hgb 9.1 g/dl (12.0-16.0) L 09/06/18 11:05 Hct 29 % (35-47) L 09/06/18 11:05 MCV 85 fL (80-97) 09/06/18 11:05 MCH 27 pg (27-31) 09/06/18 11:05 MCHC 31 g/dl (31-36) 09/06/18 11:05 RDW 17 % (10.5-15) H 09/06/18 11:05 Plt Count 118 10^3/ul (150-450) L 09/06/18 11:05 MPV 8.7 um3 (7.4-10.4) 09/06/18 11:05 Neut % (Auto) 79.1 % (38-83) 09/06/18 05:28 Lymph % (Auto) 11.7 % (25-47) L 09/06/18 05:28 [place] % (Auto) 8.3 % (0-7) H 09/06/18 05:28 Eos % (Auto) 0.4 % (0-6) 09/06/18 05:28 Baso % (Auto) 0.5 % (0-2) 09/06/18 05:28 Absolute Neuts (auto) 6.6 10^3/ul (1.5-7.7) 09/06/18 05:28 Absolute Lymphs (auto) 1.0 10^3/ul (1.0-4.8) 09/06/18 05:28 Absolute Monos (auto) 0.7 10^3/ul (0-0.8) 09/06/18 05:28 Absolute Eos (auto) 0 10^3/ul (0-0.6) 09/06/18 05:28 Absolute Basos (auto) 0 10^3/ul (0-0.2) 09/06/18 05:28 Absolute Nucleated RBC 0 10^3/ul 09/06/18 05:28 Nucleated RBC % 0 09/06/18 05:28 Clumped Platelets Present 09/06/18 05:28 INR (Anticoag Therapy) 0.93 (0.77-1.02) 09/04/18 11:30 APTT 24.8 seconds (26.0-36.3) L 09/04/18 11:30 Sodium 139 mmol/L (135-145) 09/06/18 05:28 Potassium 4.5 mmol/L (3.5-5.0) 09/06/18 05:28 Chloride 109 mmol/L (101-111) 09/06/18 05:28 Carbon Dioxide 22 mmol/L (22-32) 09/06/18 05:28 Anion Gap 8 mmol/L (2-11) 09/06/18 05:28 BUN 16 mg/dL (6-24) 09/06/18 05:28 Creatinine 0.90 mg/dL (0.51-0.95) 09/06/18 05:28 Est GFR ( Amer) 71.5 (>60) 09/06/18 05:28 Est GFR (Non-Af Amer) 59.1 (>60) 09/06/18 05:28 BUN/Creatinine Ratio 17.8 (8-20) 09/06/18 05:28 Glucose 155 mg/dL (70-100) H 09/06/18 05:28 POC Glucose (mg/dL) 335 mg/dL (70-100) H 09/06/18 12:25 Hemoglobin A1c 9.3 % (4.0-5.6) H 09/04/18 11:30 Calcium 8.4 mg/dL (8.6-10.3) L 09/06/18 05:28 Total Bilirubin 0.50 mg/dL (0.2-1.0) 09/04/18 11:30 AST 17 U/L (13-39) 09/04/18 11:30 ALT 13 U/L (7-52) 09/04/18 11:30 Alkaline Phosphatase 137 U/L (34-104) H 09/04/18 11:30 Total Protein 7.2 g/dL (6.4-8.9) 09/04/18 11:30 Albumin 4.0 g/dL (3.2-5.2) 09/04/18 11:30 Globulin 3.2 g/dL (2-4) 09/04/18 11:30 Albumin/Globulin Ratio 1.3 (1-3) 09/04/18 11:30 TSH 1.04 mcIU/mL (0.34-5.60) 09/06/18 05:28 Urine Color Yellow 09/05/18 01:09 Urine Appearance Clear 09/05/18 01:09 Urine pH 5.0 (5-9) 09/05/18 01:09 Ur Specific Lynn 1.026 (1.010-1.030) 09/05/18 01:09 Urine Protein Negative (Negative) 09/05/18 01:09 Urine Ketones Trace (Negative) A 09/05/18 01:09 Urine Blood Negative (Negative) 09/05/18 01:09 Urine Nitrate Negative (Negative) 09/05/18 01:09 Urine Bilirubin Negative (Negative) 09/05/18 01:09 Urine Urobilinogen Negative (Negative) 09/05/18 01:09 Ur Leukocyte Esterase Trace (Negative) A 09/05/18 01:09 Urine WBC (Auto) Trace(0-5/hpf) (Absent) 09/05/18 01:09 Urine RBC (Auto) Trace(0-2/hpf) (Absent) 09/05/18 01:09 Ur Squamous Epith Cells Present (Absent) A 09/05/18 01:09 Urine Bacteria Absent (Absent) 09/05/18 01:09 Urine Glucose 3+(>=500 mg/dl) (Negative) A 09/05/18 01:09 Blood Type O Positive 09/04/18 11:30 Antibody Screen Negative 09/04/18 11:30 Objective: Dressing C/D/I. Calves soft, nontender. No edema. Sensation intact to light touch distally. 2+ DP Pulses Assessment: 87 yo female s/p ORIF left hip IT fx POD #1 Plan: OOB PT/OT 50% WB left LE Pain control DVT prophylaxis D/C Planning
--- NOTE | 2018-09-06 15:09 | PN ---
Subjective Date of Service: 09/06/18 Interval History: patient reports that left shoulder pain is improved. reports left hip pain with movement but improved and controlled with current pain medications. denies calf pain. Denies chest pain or shortness of breath. denies abd pain n/v/d. Family History: Unchanged from Admission Social History: Unchanged from Admission Past Medical History: Unchanged from Admission Objective Active Medications: Acetaminophen (Tylenol Tab*) 650 mg PO Q4H PRN PRN Reason: FEVER/PAIN Last Admin: 09/06/18 02:11 Dose: 650 mg Albuterol (Ventolin Hfa Inhaler*) 1 puff INH Q4H PRN PRN Reason: SOB/WHEEZING Albuterol/Ipratropium (Duoneb (Albuterol 2.5 Mg/Ipratropium 0.5 Mg)) 1 neb INH [id number] AWAKE PRN PRN Reason: SOB/WHEEZING Last Admin: 09/04/18 15:11 Dose: 1 neb Atorvastatin Calcium (Lipitor*) 40 mg PO DAILY [facility] Last Admin: 09/06/18 09:06 Dose: 40 mg Budesonide (Pulmicort Neb*) 0.5 mg INH BID [facility] Last Admin: 09/06/18 07:16 Dose: 0.5 mg Dextrose (D50w Syringe 50 Ml*) 12.5 gm IV PUSH .FOR FS < 60 - SS PRN PRN Reason: FS < 60 Docusate Sodium (Colace Cap*) 100 mg PO BID [facility] Last Admin: 09/06/18 12:24 Dose: 100 mg Heparin Sodium (Porcine) (Heparin Vial(*)) 5,000 units SUBCUT Q8HR [facility] Last Admin: 09/06/18 13:43 Dose: 5,000 units Sodium Chloride (Ns 0.9% 1000 Ml*) 1,000 mls @ 75 mls/hr IV PER RATE [facility] Last Admin: 09/05/18 18:29 Dose: 75 mls/hr Insulin Human Lispro (Humalog*) 0 units SUBCUT ACHS [facility]; Protocol Last Admin: 09/06/18 12:59 Dose: 4 units Levothyroxine Sodium (Synthroid Tab*) 75 mcg PO DAILY@0600 [facility] Last Admin: 09/06/18 05:15 Dose: 75 mcg Magnesium Hydroxide (Milk Of Magnesia Liq*) 30 ml PO BID [facility] Magnesium Hydroxide (Milk Of Magnbria Liq*) 30 ml PO BID PRN PRN Reason: CONSTIPATION Last Admin: 09/06/18 12:24 Dose: 30 ml Montelukast Sodium (Singulair Tab*) 10 mg PO QPM [facility] Last Admin: 09/05/18 17:36 Dose: 10 mg Morphine Sulfate (Morphine Inj (Syringe)*) 2 mg IV Q2H PRN PRN Reason: PAIN - SEVERE Last Admin: 09/05/18 08:54 Dose: 2 mg Ondansetron HCl (Zofran Inj*) 4 mg IV Q6H PRN PRN Reason: NAUSEA/VOMITING Oxycodone/Acetaminophen (Percocet 5/325 Tab*) 1 tab PO Q3H PRN PRN Reason: PAIN - MODERATE Last Admin: 09/06/18 12:30 Dose: 1 tab Senna (Senokot Tab*) 1 tab PO BEDTIME PRN PRN Reason: CONSTIPATION Sertraline HCl (Zoloft*) 100 mg PO DAILY [facility] Last Admin: 09/06/18 09:05 Dose: 100 mg Vital Signs - 8 hr 09/06/18 09/06/18 09/06/18 07:19 07:23 07:25 Temperature Pulse Rate 92 Respiratory 16 16 18 Rate Blood Pressure (mmHg) O2 Sat by Pulse 98 98 Oximetry 09/06/18 09/06/18 09/06/18 07:58 08:00 10:17 Temperature 98.1 F Pulse Rate 85 Respiratory 18 18 18 Rate Blood Pressure 107/47 (mmHg) O2 Sat by Pulse 99 Oximetry 09/06/18 09/06/18 09/06/18 11:27 12:28 12:30 Temperature 98.1 F Pulse Rate 95 Respiratory 16 16 Rate Blood Pressure 96/45 122/64 (mmHg) O2 Sat by Pulse 91 Oximetry Oxygen Devices in Use Now: None Appearance: appears comfortable resting in bed, no acute distress Eyes: No Scleral Icterus Ears/Nose/Mouth/Throat: Clear Oropharnyx, Mucous Membranes Moist Neck: NL Appearance and Movements; NL JVP, Trachea Midline Respiratory: Symmetrical Chest Expansion and Respiratory Effort, Clear to Auscultation Cardiovascular: NL Sounds; No Murmurs; No JVD, No Edema Abdominal: NL Sounds; No Tenderness; No Distention Extremities: No Edema, No Clubbing, Cyanosis, - - pedal pulses +2 bilat Skin: No Rash or Ulcers Neurological: Alert and Oriented x 3 Nutrition: Taking PO's Result Diagrams: 09/06/18 11:05 09/06/18 05:28 Microbiology and Other Data: Microbiology 09/05/18 01:09 Urine Culture - Final Urine No Growth (<1,000 CFU/mL) Assess/Plan/Problems-Billing Assessment: Ms. Rubi is a 87 y.o female with a pmhx of asthma, DM, HLD, hypothyroid and htn who presented to [facility] after a fall at home c/o left hip and left shoulder pain. Patient was found to have a left hip fracture. - Patient Problems (1) Hip fracture, left Current Visit: Yes Status: Acute Code(s): S72.002A - FRACTURE OF UNSP PART OF NECK OF LEFT FEMUR, INIT SNOMED Code(s): 496493615 Comment: OR POD # 1 management per ortho Pt/OT per ortho DVT prop per ortho (2) Asthma Current Visit: No Status: Acute Code(s): J45.909 - UNSPECIFIED ASTHMA, UNCOMPLICATED SNOMED Code(s): 892867532 Comment: Lungs clear. Continue home medications. (3) Anemia Current Visit: Yes Status: Acute Code(s): D64.9 - ANEMIA, UNSPECIFIED SNOMED Code(s): 276272472 Comment: suspect this is acute blood loss anemia d/t left hip fracture/ repair - this could also be partially dilutional - will continue to monitor h/h and treat if needed (4) HTN (hypertension) Current Visit: Yes Status: Acute Code(s): I10 - ESSENTIAL (PRIMARY) HYPERTENSION SNOMED Code(s): 54113318 Comment: -will resume losartan after surgery (5) HLD (hyperlipidemia) Current Visit: Yes Status: Acute Code(s): E78.5 - HYPERLIPIDEMIA, UNSPECIFIED SNOMED Code(s): 45479370 Comment: continue atrovasatin (6) Hypothyroid Current Visit: Yes Status: Acute Code(s): E03.9 - HYPOTHYROIDISM, UNSPECIFIED SNOMED Code(s): 87092350 Comment: continue levothyroxine TSH 1.01 (7) DM2 (diabetes mellitus, type 2) Current Visit: No Status: Acute Comment: Hold home oral hypoglycemics. Lispro SS fingersticks AC/hs (8) DVT prophylaxis Current Visit: No Status: Acute Code(s): ZBS8953 - SNOMED Code(s): 047184167 Comment: SCD's (9) Full code status Current Visit: Yes Status: Acute Code(s): Z78.9 - OTHER SPECIFIED HEALTH STATUS SNOMED Code(s): 224667463 Status and Disposition: inpatient - may need STR at discharge
[2018-09-06] MEDS: Montelukast Sodium TAB* 10 MG PO SCH (17:30)
[2018-09-06] MEDS ORDERED: Docusate CAP* 100 MG PO SCH (21:00)
[2018-09-06] MEDS: Magnesium Hydroxide LIQ* 30 ML UDC PO SCH (21:04)
--- NOTE | 2018-09-06 23:34 | CONS ---
CC: Abhay Fink DO; Vinh Panchal MD * ONCOLOGY/HEMATOLOGY CONSULTATION REPORT: DATE OF CONSULT: 09/06/18 REASON FOR CONSULT: Thrombocytopenia. HISTORY OF PRESENT ILLNESS: Fouzia Rubi is an 87-year-old female with a history of diabetes type 2, hypertension, asthma, hyperlipidemia, hypothyroidism and depression. She was chasing her cat around her house, slipped and fell and had a mildly displaced intertrochanteric comminuted fracture of the left femur. She was evaluated by the hospitalist service, felt to be a good candidate for surgery and was taken to the operating room by Dr. Panchal where an open reduction and internal fixation was performed with a short gamma nail. This was on 09/05/18. The patient tolerated the procedure well and is still complaining of pain at the surgical site today. 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 It was noted by the orthopedic service that the patient had platelets that were clumped on multiple previous occasions including the first 3 times during this hospitalization. Subsequent platelet count on 09/06/18 at 11 o'clock in the morning was mildly diminished at a 118,000 with normal of 150 to 450,000. Looking at the chart in retrospect, the patient has had platelets unable to evaluated and clumped on multiple occasion from 2012 through 08/10/18. The last value obtained was that in 2008 in the old [employer] system for 170, 000. It should be noted that her white count has been normal on essentially all occasions and prior to her surgery, her hemoglobin was 12.2 on 08/10/18, obtained by Dr. Fink and 12.1 on 09/04/18 at the time of admission. In general , she has had very mild anemia over the past several years. PAST MEDICAL HISTORY: Diabetes, asthma, hypertension, hyperlipidemia, hypothyroidism, depression, status post tonsillectomy, status post cataract surgery. One prior hospitalization only with blood sugars out of control, question sepsis 2 years ago. No other hospitalizations except for child . MEDICATIONS: At the time of admission includes: 1. Glipizide. 2. Singulair. 3. Aspirin. 4. Synthroid. 5. Januvia. 6. Zoloft. 7. Losartan. 8. Hannah. 9. Empagliflozin. 10. Metformin. 11. Atorvastatin. 12. P.r.n. ibuprofen. In addition, uses inhalers including Pulmicort, Atrovent, Spiriva, and Brovana infrequently, ALLERGIES: To PENICILLIN and PAXIL. FAMILY HISTORY: No family history of any malignancy or any bleeding or clotting disorders. Both parents of myocardial infarction. SOCIAL HISTORY: No significant alcohol or cigarettes. The patient lives alone. 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 REVIEW OF SYSTEMS: Otherwise negative except as discussed above and/or as described in the accompanied history and physical by Dr. Mack dictated by Nesha Gaviria NP. PHYSICAL EXAM: Vital Signs: Stable. Heart: Regular rate and rhythm without murmurs, rubs, or gallops. Lungs: Clear. Abdomen: Soft, nontender without masses or organomegaly. No palpable cervical, or supraclavicular or axillary adenopathy. IMPRESSION: An 87-year-old female with mildly diminished platelet count at 118, 000, multiple previous counts over the past several years have all shown clumping of platelets. The vast majority of times when platelets are clumped, it is secondary to laboratory artifact with a clumping occurring in EDTA tubes. In general, this is something that can be gotten around by then doing platelet sample with either a citrated tube or occasionally heparin tube. If the platelets still clump, then there is a special procedure our lab where the platelets can be tested for with amikacin. It is fairly frequent when platelets do clump for it to be for antiplatelet antibodies are present. In general, this does not have any significant pathologic significance. Her current platelet count of 118,000 is in the postoperative setting. It is certainly possible that between the bleeding that occurred with a fracture and that occurred with surgery could have slightly diminished her platelet count. It is not clear that a 118,000 is truly her baseline. As long as her platelet counts stays over 100,000, she is certainly not at risk for any extra bleeding or other complications. In fact, even in the postoperative setting, platelet counts with at least 60,000 should be more than adequate for hemostasis. I would recommend that an outpatient platelet count be obtained sometime in the next month and if it is still clumping to be done on either a citrated or heparinized tube and at that point, still clumping to be done through the [facility] lab with amikacin. If her platelet count is truly diminished and not just low postoperatively and post- hip fracture, it is possible that other conditions are present such as either ITP or even early myelodysplasia. At this level and without significant abnormalities in cell line, I would not work this up in an 87-year-old and I would only be concerned if the platelet count continued to drop to 100 or if there were abnormalities in other cell lines. [id number]/[facility] #: [id number] [facility]
[2018-09-07] MEDS: oxyCODONE/Acetamin 5/325 MG* TAB PO PRN ×3 (01:50→12:31)
[2018-09-07] MEDS: Levothyroxine TAB* 75 MCG TAB PO SCH (05:41)
[2018-09-07] MEDS: Heparin VIAL(*) 5000 UNITS/ML VIAL (FIVE THOUSAND) SUBCUT SCH (05:42)
[2018-09-07 06:12] LABS: EGFR Non-African American 59.1 (>60)
[2018-09-07 06:32] LABS: Hematocrit 26 % (35-47); Hemoglobin 8.2 g/dl (12.0-16.0); Mean Corpuscular HGB Conc 32 g/dl (31-36); Mean Corpuscular Hemoglobin 27 pg (27-31); Mean Corpuscular Volume 84 fL (80-97); Platelet Count Platelets clumped. 10^3/ul (150-450); Red Blood Count 3.06 10^6/ul (4.00-5.40); Red Cell Distribution Width 16 % (10.5-15); White Blood Count 7.7 10^3/ul (3.5-10.8)
[2018-09-07] MEDS: Budesonide NEB* 0.5 MG/2 ML NEB.SOLN INH SCH (07:11)
[2018-09-07] MEDS: Insulin LISPRO* 1 UNITS UNIT SUBCUT SCH ×2 (09:00→12:31)
[2018-09-07] MEDS: Sertraline* 100 MG TAB PO SCH (09:00)
[2018-09-07] MEDS: Atorvastatin* 40 MG TAB PO SCH (09:00)
[2018-09-07] MEDS: Docusate CAP* 100 MG PO SCH (09:00)
[2018-09-07] MEDS: Magnesium Hydroxide LIQ* 30 ML UDC PO SCH (09:00)
--- NOTE | 2018-09-07 09:58 | PN ---
Subjective Date of Service: 09/07/18 Interval History: Pt currently endorsing pain with movement of left foot, however did just receive pain medication and says it does adequately control. Pt denies chest pain, but does endorse shortness of breath associated with discomfort in the area of her diaphragm that worsens when she breathes in. Pt is currently on oxygen, 2L O2. Pt denies dizziness, headache, palpitations, Abdominal pain/N/V/ D. 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 Family History: Unchanged from Admission Social History: Unchanged from Admission Past Medical History: Unchanged from Admission Objective Active Medications: Acetaminophen (Tylenol Tab*) 650 mg PO Q4H PRN PRN Reason: FEVER/PAIN Last Admin: 09/06/18 02:11 Dose: 650 mg Albuterol (Ventolin Hfa Inhaler*) 1 puff INH Q4H PRN PRN Reason: SOB/WHEEZING Albuterol/Ipratropium (Duoneb (Albuterol 2.5 Mg/Ipratropium 0.5 Mg)) 1 neb INH RT.[id number] AWAKE [facility] Atorvastatin Calcium (Lipitor*) 40 mg PO DAILY [facility] Last Admin: 09/07/18 09:00 Dose: 40 mg Budesonide (Pulmicort Neb*) 0.5 mg INH BID [facility] Last Admin: 09/07/18 07:11 Dose: 0.5 mg Dextrose (D50w Syringe 50 Ml*) 12.5 gm IV PUSH .FOR FS < 60 - SS PRN PRN Reason: FS < 60 Docusate Sodium (Colace Cap*) 100 mg PO BID [facility] Last Admin: 09/07/18 09:00 Dose: 100 mg Heparin Sodium (Porcine) (Heparin Vial(*)) 5,000 units SUBCUT Q8HR [facility] Last Admin: 09/07/18 05:42 Dose: 5,000 units Sodium Chloride (Ns 0.9% 1000 Ml*) 1,000 mls @ 75 mls/hr IV PER RATE [facility] Last Admin: 09/05/18 18:29 Dose: 75 mls/hr Insulin Human Lispro (Humalog*) 0 units SUBCUT ACHS [facility]; Protocol Last Admin: 09/07/18 09:00 Dose: 1 units Levothyroxine Sodium (Synthroid Tab*) 75 mcg PO DAILY@0600 [facility] Last Admin: 09/07/18 05:41 Dose: 75 mcg Magnesium Hydroxide (Milk Of Magnesia Liq*) 30 ml PO BID [facility] Last Admin: 09/07/18 09:00 Dose: 30 ml Magnesium Hydroxide (Milk Of Magnesia Liq*) 30 ml PO BID PRN PRN Reason: CONSTIPATION Last Admin: 09/06/18 12:24 Dose: 30 ml Montelukast Sodium (Singulair Tab*) 10 mg PO QPM [facility] Last Admin: 09/06/18 17:30 Dose: 10 mg Morphine Sulfate (Morphine Inj (Syringe)*) 2 mg IV Q2H PRN PRN Reason: PAIN - SEVERE Last Admin: 09/05/18 08:54 Dose: 2 mg Ondansetron HCl (Zofran Inj*) 4 mg IV Q6H PRN PRN Reason: NAUSEA/VOMITING Oxycodone/Acetaminophen (Percocet 5/325 Tab*) 1 tab PO Q3H PRN PRN Reason: PAIN - MODERATE Last Admin: 09/07/18 05:41 Dose: 1 tab Senna (Senokot Tab*) 1 tab PO BEDTIME PRN PRN Reason: CONSTIPATION Last Admin: 09/06/18 21:04 Dose: 1 tab Sertraline HCl (Zoloft*) 100 mg PO DAILY [facility] Last Admin: 09/07/18 09:00 Dose: 100 mg Vital Signs - 8 hr 09/07/18 09/07/18 09/07/18 04:05 04:34 05:41 Temperature 97.1 F Pulse Rate 91 Respiratory 20 20 18 Rate Blood Pressure 113/51 (mmHg) O2 Sat by Pulse 99 Oximetry 09/07/18 09/07/18 09/07/18 07:12 07:50 08:00 Temperature 97.9 F Pulse Rate 80 91 Respiratory 14 18 18 Rate Blood Pressure 100/50 (mmHg) O2 Sat by Pulse 90 97 Oximetry 09/07/18 09:04 Temperature Pulse Rate Respiratory 20 Rate Blood Pressure (mmHg) O2 Sat by Pulse Oximetry Oxygen Devices in Use Now: Nasal Cannula Eyes: No Scleral Icterus, PERRLA Ears/Nose/Mouth/Throat: NL Teeth, Lips, Gums, Clear Oropharnyx, Mucous Membranes Moist Neck: NL Appearance and Movements; NL JVP Respiratory: Symmetrical Chest Expansion and Respiratory Effort, Clear to Auscultation Cardiovascular: NL Sounds; No Murmurs; No JVD, RRR, No Edema Abdominal: NL Sounds; No Tenderness; No Distention Extremities: No Edema, No Clubbing, Cyanosis Skin: No Rash or Ulcers, No Nodules or Sclerosis, - - Large area of erythema on left arm near elbow Neurological: Alert and Oriented x 3, NL Muscle Strength and Tone - Able to dorsiflex and plantarflex Lines/Tubes/Other Access: Clean, Dry and Intact Cortes, Clean, Dry and Intact Peripheral IV Result Diagrams: 09/07/18 05:20 09/07/18 05:20 Microbiology and Other Data: Microbiology 09/05/18 01:09 Urine Culture - Final Urine No Growth (<1,000 CFU/mL) Assess/Plan/Problems-Billing Assessment: Ms. Rubi is a 87 y.o female with a pmhx of asthma, DM, HLD, hypothyroid and htn who presented to [facility] after a fall at home c/o left hip and left shoulder pain. Patient was found to have a left hip fracture, s/p ORIF L hip POD [address] Panchal - Patient Problems (1) Hip fracture, left Current Visit: Yes Status: Acute Code(s): S72.002A - FRACTURE OF UNSP PART OF NECK OF LEFT FEMUR, INIT SNOMED Code(s): 976309095 Comment: OR POD # 1 management per ortho Pt/OT per ortho DVT prop per ortho (2) DM2 (diabetes mellitus, type 2) Current Visit: No Status: Acute Comment: - Resume home oral agents upon discharge, including Januvia, empagliflozin, glipizide, and metformin. - HgA1c 9.3 - On admission discussed insulin with pt's daughter and she indicated that they were not interested, however can follow up with primary care provider about achieving tighter glycemic control (3) Asthma Current Visit: No Status: Acute Code(s): J45.909 - UNSPECIFIED ASTHMA, UNCOMPLICATED SNOMED Code(s): 743654212 Comment: - No wheezing on exam or evidence of acute exacerbation. Satting 95 % on room air though was on NC overnight. Pt did endorse some minor shortness of breath accompanied by 3/10 discomfort at diaphragm. This likely represents post-op atelectasis, however CXR was done to ruleout pulmonary edema/new focal consolidation. CXR withouth acute cardiopulmonary disease. CXR does show hyperinflated lungs, so could have COPD component as well, though no formal diagnosis of this. Pt is afebrible and withouth leukocytosis. Encouraged use of IS and duonebs. - Pt is perscribed many inhalers at home, but is not sure which she uses and how frequently, though she doesn't recall the last time she had an exacerbation. Have resumed for discharge to PMU. (4) Anemia Current Visit: Yes Status: Acute Code(s): D64.9 - ANEMIA, UNSPECIFIED SNOMED Code(s): 580555715 Comment: - Most likely acute blood loss anemia d/t left hip fracture/ repair - Will continue to monitor h/h and treat if needed (H/H today 8.01/05 today) (5) HLD (hyperlipidemia) Current Visit: Yes Status: Acute Code(s): E78.5 - HYPERLIPIDEMIA, UNSPECIFIED SNOMED Code(s): 34595281 Comment: - Continue atrovasatin (6) HTN (hypertension) Current Visit: Yes Status: Acute Code(s): I10 - ESSENTIAL (PRIMARY) HYPERTENSION SNOMED Code(s): 10018091 Comment: - Can resume losartan on discharge (7) Hypothyroid Current Visit: Yes Status: Acute Code(s): E03.9 - HYPOTHYROIDISM, UNSPECIFIED SNOMED Code(s): 25912856 Comment: - Continue levothyroxine at home dose, 75 mcg daily - TSH 1.01 (8) DVT prophylaxis Current Visit: No Status: Acute Code(s): XAM7053 - SNOMED Code(s): 288874615 Comment: - Transition to lovenox 30mg daily. Have confirmed with ortho that this is ok. (9) Full code status Current Visit: Yes Status: Acute Code(s): Z78.9 - OTHER SPECIFIED HEALTH STATUS SNOMED Code(s): 382734469 Status and Disposition: Discharge to [facility] Attending: Chapo Chacon
--- NOTE | 2018-09-07 11:31 | RAD ---
INDICATION: Shortness of breath. COMPARISON: Correlation is made with a prior study from September 04, 2018. TECHNIQUE: A portable view of the chest was obtained. FINDINGS: Cardiac and mediastinal contours appear to be within normal limits. The lungs are clear. There is slight elevation of the right hemidiaphragm which is unchanged. No pleural effusion is seen. IMPRESSION: NO EVIDENCE FOR ACUTE DISEASE.
[2018-09-07 12:24] VITALS: BP 113/60
[2018-09-07] MEDS ORDERED: Albuterol/Ipratropium NEB.SOL* Albuterol 2.5 MG/Ipratropium 0.5 MG 3 ML INH SCH (13:00)
--- NOTE | 2018-09-07 13:11 | PN ---
Progress Note - Progress Note Date of Service: 09/07/18 SOAP: Subjective: [] Patient seen and examined OOB in chair. She is feeling well without CP, SOB, dizziness, nausea or leg numbness. Objective: []General: Well appearing, NAD LLE: Dressing changed, inicision CDI without surrounding erythema. Thigh is soft. Sensation intact distally. DF/PF intact. Dp2+. Calves soft, nontender Assessment: 87 yo female s/p ORIF left hip IT fx POD #2 Plan: OOB PT/OT 50% WB left LE PT/OT 30 days of DVT prophylaxis required post op. Has has platelet clumping and has had heme consult. Type of DVT prophylaxis may be determined by medicine at [place]. Will need continued PLT studies outpt per hematology consult PMRU today Vital Signs Temp 98.3 F 09/07/18 12:06 Pulse 89 09/07/18 12:18 Resp 18 09/07/18 12:31 BP 113/60 09/07/18 12:06 Pulse Ox 90 09/07/18 12:18 Intake & Output 09/06/18 09/07/18 09/07/18 18:59 06:59 18:59 Intake Total 1899 700 Output Total 400 625 350 Balance 1499 75 -350 Intake: IV Fluids 1229 ABX - CEFAZOLIN 110 NS (0.9%) 1119 Oral 670 700 Output: Cortes 400 625 350 Laboratory Last Values WBC 7.7 10^3/ul (3.5-10.8) 09/07/18 05:20 RBC 3.06 10^6/ul (4.00-5.40) L 09/07/18 05:20 Hgb 8.2 g/dl (12.0-16.0) L 09/07/18 05:20 Hct 26 % (35-47) L 09/07/18 05:20 MCV 84 fL (80-97) 09/07/18 05:20 MCH 27 pg (27-31) 09/07/18 05:20 MCHC 32 g/dl (31-36) 09/07/18 05:20 RDW 16 % (10.5-15) H 09/07/18 05:20 Plt Count Platelets clumped. 10^3/ul (150-450) H 09/07/18 05:20 MPV 8.7 um3 (7.4-10.4) 09/06/18 11:05 Neut % (Auto) 79.1 % (38-83) 09/06/18 05:28 Lymph % (Auto) 11.7 % (25-47) L 09/06/18 05:28 Meriwether % (Auto) 8.3 % (0-7) H 09/06/18 05:28 Eos % (Auto) 0.4 % (0-6) 09/06/18 05:28 Baso % (Auto) 0.5 % (0-2) 09/06/18 05:28 Absolute Neuts (auto) 6.6 10^3/ul (1.5-7.7) 09/06/18 05:28 Absolute Lymphs (auto) 1.0 10^3/ul (1.0-4.8) 09/06/18 05:28 Absolute Monos (auto) 0.7 10^3/ul (0-0.8) 09/06/18 05:28 Absolute Eos (auto) 0 10^3/ul (0-0.6) 09/06/18 05:28 Absolute Basos (auto) 0 10^3/ul (0-0.2) 09/06/18 05:28 Absolute Nucleated RBC 0 10^3/ul 09/06/18 05:28 Nucleated RBC % 0 09/06/18 05:28 Clumped Platelets Present 09/07/18 05:20 INR (Anticoag Therapy) 0.93 (0.77-1.02) 09/04/18 11:30 APTT 24.8 seconds (26.0-36.3) L 09/04/18 11:30 Sodium 134 mmol/L (135-145) L 09/07/18 05:20 Potassium 4.6 mmol/L (3.5-5.0) 09/07/18 05:20 Chloride 104 mmol/L (101-111) 09/07/18 05:20 Carbon Dioxide 24 mmol/L (22-32) 09/07/18 05:20 Anion Gap 6 mmol/L (2-11) 09/07/18 05:20 BUN 18 mg/dL (6-24) 09/07/18 05:20 Creatinine 0.90 mg/dL (0.51-0.95) 09/07/18 05:20 Est GFR ( Amer) 71.5 (>60) 09/07/18 05:20 Est GFR (Non-Af Amer) 59.1 (>60) 09/07/18 05:20 BUN/Creatinine Ratio 20.0 (8-20) 09/07/18 05:20 Glucose 175 mg/dL (70-100) H 09/07/18 05:20 POC Glucose (mg/dL) 211 mg/dL (70-100) H 09/07/18 11:11 Hemoglobin A1c 9.3 % (4.0-5.6) H 09/04/18 11:30 Calcium 8.5 mg/dL (8.6-10.3) L 09/07/18 05:20 Total Bilirubin 0.50 mg/dL (0.2-1.0) 09/04/18 11:30 AST 17 U/L (13-39) 09/04/18 11:30 ALT 13 U/L (7-52) 09/04/18 11:30 Alkaline Phosphatase 137 U/L (34-104) H 09/04/18 11:30 Total Protein 7.2 g/dL (6.4-8.9) 09/04/18 11:30 Albumin 4.0 g/dL (3.2-5.2) 09/04/18 11:30 Globulin 3.2 g/dL (2-4) 09/04/18 11:30 Albumin/Globulin Ratio 1.3 (1-3) 09/04/18 11:30 TSH 1.04 mcIU/mL (0.34-5.60) 09/06/18 05:28 Urine Color Yellow 09/05/18 01:09 Urine Appearance Clear 09/05/18 01:09 Urine pH 5.0 (5-9) 09/05/18 01:09 Ur Specific [place] 1.026 (1.010-1.030) 09/05/18 01:09 Urine Protein Negative (Negative) 09/05/18 01:09 Urine Ketones Trace (Negative) A 09/05/18 01:09 Urine Blood Negative (Negative) 09/05/18 01:09 Urine Nitrate Negative (Negative) 09/05/18 01:09 Urine Bilirubin Negative (Negative) 09/05/18 01:09 Urine Urobilinogen Negative (Negative) 09/05/18 01:09 Ur Leukocyte Esterase Trace (Negative) A 09/05/18 01:09 Urine WBC (Auto) Trace(0-5/hpf) (Absent) 09/05/18 01:09 Urine RBC (Auto) Trace(0-2/hpf) (Absent) 09/05/18 01:09 Ur Squamous Epith Cells Present (Absent) A 09/05/18 01:09 Urine Bacteria Absent (Absent) 09/05/18 01:09 Urine Glucose 3+(>=500 mg/dl) (Negative) A 09/05/18 01:09 Blood Type O Positive 09/04/18 11:30 Antibody Screen Negative 09/04/18 11:30
[2018-09-07] MEDS ORDERED: Enoxaparin(*) 30 MG/0.3 ML SYR SUBCUT SCH (15:00)
--- NOTE | 2018-09-08 06:32 | DS ---
AMENDED REPORT NOW INCLUDES DESIGNATED COSIGNER CC: Dr. Fink; Dr. Panchal * DISCHARGE SUMMARY: DATE OF ADMISSION: DATE OF DISCHARGE: PROVIDER: Nesha Lora NP ATTENDING PHYSICIAN: Dr. Chacon * (dictated by Nesha Lora NP) PRIMARY CARE PROVIDER: Dr. Abhay Fink. CONSULTING PROVIDER: Dr. Vinh Panchal. PRIMARY DIAGNOSIS: Left hip fracture s/p ORIF. SECONDARY DIAGNOSES: 1. Diabetes mellitus, type 2. 2. Asthma. 3. Anemia. 4. Hyperlipidemia. 5. Hypertension. 6. Hypothyroidism. DISCHARGE MEDICATIONS: 1. Glipizide tab XL 10 mg p.o. daily. 2. Singulair 10 mg p.o. q.p.m. 3. Aspirin 81 mg p.o. daily. 4. Synthroid 75 mcg p.o. daily. 5. Januvia 100 mg p.o. daily. 6. Zoloft 100 mg p.o. daily. 7. Losartan 100 mg p.o. daily. 8. Hannah 180 mg p.o. daily. 9. Pulmicort 0.5 mg INH b.i.d. 10. Atrovent 0.5 mg INH b.i.d. 11. Empagliflozin 10 mg p.o. daily. 12. Metformin 1000 mg p.o. daily. 13. Atorvastatin 40 mg p.o. daily. 14. Spiriva 1 cap INH daily. 15. Advil 400 to 600 mg p.o. daily p.r.n. 16. Epinephrine 0.3 mg IM once p.r.n. for bee stings. 17. Brovana 15 mcg INH b.i.d. New medication on discharge: 1. Percocet 5/325 one tab p.o. q.3h. p.r.n. for pain. 2. Senna 1 tab p.o. at bedtime p.r.n. 3. Milk of magnesia 30 mL p.o. b.i.d. p.r.n. 4. Lovenox 30 mg subcutaneous q.24 hours; Lovenox is for 30 days. 5. Colace 100 mg p.o. b.i.d. 6. Acetaminophen 650 mg p.o. q.4 hours p.r.n. HOSPITAL COURSE: This is an 87-year-old female with a past medical history of type 2 diabetes, not on insulin; asthma; hypertension; hyperlipidemia; hypothyroidism; depression, who presented to the ED with left hip pain and inability to move her left lower extremity after mechanical fall. The patient was in her usual state of health prior to the fall, was chasing after her cat and fell. She denied loss of consciousness and did not hit her head. She was not on any blood thinners except aspirin. In the ED, she underwent an hip, and pelvis x-ray, which showed a slight comminuted mildly displaced intertrochanteric fracture of the left femur. The patient was evaluated by Dr. Panchal in the ED for an ORIF to repair the left hip fracture. The patient underwent workup with an EKG and RCRI evaluation and was deemed medically optimized for the procedure. The patient underwent the open reduction and internal fixation of the left intertrochanteric fracture with a short gamma nail on 09/05/18. Estimated blood loss was 50 cc and there were no complications from the procedure. The patient was eager to go home postoperatively. Her pain was controlled initially with IV morphine; however, after the procedure, she was transitioned to oral agents and on day of discharge , her pain was well controlled on p.r.n. Percocet and Tylenol. The patient was amenable to participating in PT and OT with a 50% weightbearing left lower extremity. Of note, the patient's platelets came back as platelets clumped for multiple blood draws, though she did have 1 platelet reading that came back at 118. The patient has also had a history of platelet clumping on previous admissions. Because of this Dr. Babin was consulted with Hematology and he evaluated the patient and felt that occasionally platelets do clump and it does not have a significant pathologic significance and we could attempt to get a platelet sample using a citrated tube or heparin tube; however, as long as her platelet count stays over 100,000, she is not at risk for extra bleeding or other complications even in her postoperative state. He does recommend that she has an outpatient followup of her platelet count with a citrated or heparinized tube to reevaluate her platelets at a later date. If the platelet count continued to drop below 100,000 that would be an indication for further workup at that time. Also, of note, the patient had poor glucose control throughout her admission. Her hemoglobin A1c was found to be 9.3. She is on multiple oral agents at home including glipizide, Januvia, empagliflozin, and metformin, and was placed on a lispro sliding scale as an inpatient; however, it would be advisable to follow up with the patient's primary care provider about the need for tighter glucose control as an outpatient. The patient's daughter did say on admission that they were not interested in insulin; however, it would be worth discussing again at this time in the setting of wound healing. Also, of note, on day of discharge, the patient was endorsing mild shortness of breath and 3/10 discomfort at the level of her diaphragm; however, she was satting well on room air 95% at the time of my evaluation and had clear lung sounds on exam, and was able to speak in full sentences without distress. The patient did undergo a chest x-ray on the day of discharge to further evaluate this, which showed no acute cardiopulmonary disease; however, initial chest x-ray did show hyperinflated lungs possibly indicating COPD, though she has no formal diagnosis of this. She does have a history of asthma for which she was prescribed multiple inhalers; however, it was unclear how often she takes these inhalers, however, they have been prescribed at discharge. While inpatient, she was receiving Pulmicort as well as p.r.n. albuterol and p.r.n. DuoNebs. The mild shortness of breath could represent post-op atelectasis on top of her existing asthma, as pt reports not using IS. IS use was encouraged. The patient is stable for discharge to [facility] and we will follow up with Dr. Panchal as well as her primary care provider. The patient will be treated with Lovenox for 30 days for DVT prophylaxis. DISPOSITION: Discharge to [facility] at [facility] [place]. DIET: Carb-controlled diet. ACTIVITY: As tolerated. The patient is optimized to participate in PT and OT with 50% weightbearing on her left lower extremity. FOLLOWUP: The patient will follow up with Dr. Panchal as well as her primary care provider, Dr. Fink. TIME SPENT: Time spent for this discharge was 35 minutes. NESHA LORA, CLOTH LAMINATING SUPERVISOR [id number]/[facility] #: [id number] [facility]ITAL[facility]ath[facility]ie
== END 2018-09-07 12:55 | DRG 481 ==
LOC: ED 09:58 → SSU 13:06
PROVIDERS: ADMIT Internal Medicine; ATTEND Student in an Organized Health Care Education/Training Program
PROC: 0QS706Z Reposition Left Upper Femur with Intramedullary Internal Fixation Device, Open Approach (ICD-10-PCS; principal; 2018-09-05 11:15)
DX: S72.142A Displaced intertrochanteric fracture of left femur, initial encounter for closed fracture (principal); D62 Acute posthemorrhagic anemia; E11.65 Type 2 diabetes mellitus with hyperglycemia; W18.39XA Other fall on same level, initial encounter; J45.909 Unspecified asthma, uncomplicated; I10 Essential (primary) hypertension; E78.5 Hyperlipidemia, unspecified; F32.9 Major depressive disorder, single episode, unspecified; E03.9 Hypothyroidism, unspecified; Y92.096 Garden or yard of other non-institutional residence as the place of occurrence of the external cause; Z79.84 Long term (current) use of oral hypoglycemic drugs; Z79.1 Long term (current) use of non-steroidal anti-inflammatories (NSAID); Z79.82 Long term (current) use of aspirin; Z79.899 Other long term (current) drug therapy; Z88.0 Allergy status to penicillin; Z88.8 Allergy status to other drugs, medicaments and biological substances; Z91.030 Bee allergy status; Z82.49 Family history of ischemic heart disease and other diseases of the circulatory system
CPT/HCPCS: 36415; 71045; 76000; 80048; 80053; 81003; 81015; 83036; 84443; 85025; 85027; 85049; 85610; 85730; 86850; 86900; 86901; 87086; 93005; 94640; 96374; 99284; A9270-GY; G8978-GP-CL; G8979-GP-CJ; G8987-GO-CL; G8988-GO-CI; J0690; J1644; J2250; J2270; J2405; J3010

== ENCOUNTER 2019-09-26 00:54 | Inpatient (IN) | payer MEDICARE, BC ==
[2019-09-26 01:43] LABS: Hematocrit 35 % (35-47); Hemoglobin 11.3 g/dL (12.0-16.0); Mean Corpuscular HGB Conc 32 g/dL (31-36); Mean Corpuscular Hemoglobin 27 pg (27-31); Mean Corpuscular Volume 83 fL (80-97); Red Blood Count 4.19 10^6 /uL (3.70-4.87); Red Cell Distribution Width 17 % (10-15); White Blood Count 13.5 10^3/uL (3.5-10.8)
--- NOTE | 2019-09-26 01:48 | ED ---
Adult Trauma - HPI Summary HPI Summary: This patient is a 88 year old F presenting to [facility] accompanied by 3 daughters with a chief complaint of falls since 09/26/19 at 0059, per triage. Symptoms aggravated by nothing. Symptoms alleviated by nothing. Patient reports falling frequently recently causing back pain, knee pain, and diaphragm issues. Daughter reports 1st fall 2 days ago due to getting up to go to bathroom at night hitting her head and banging her chin. According to daughters fall was possibly at 0400 when pt called medical alert and daughter arrived noting pts ribs tender and left hand pain (improved in day). Daughters report today pt fell again with worsened SOB due to asthma, vomiting, heightened weakness. Pt denies CP, CAMPOS. Daughter reports not eating well, dry mouth. Pt takes aspirin as blood thinner. Daughter reported pt was normal prior to fall. Hx her toenail taken off and broke femur. - History of Current Complaint Chief Complaint: EDFall Stated Complaint: FALL PER EMS Time Seen by Provider: 09/26/19 01:06 Hx Obtained From: Patient, Family/Commercial Loan Analyst - daughters Mechanism of Injury: Fall Onset/Duration: Started Hours Ago, Still Present Current Severity: Moderate Pain Intensity: 6 Pain Scale Used: 0-10 Numeric Aggravating Factor(s): Nothing Alleviating Factor(s): Nothing Associated Signs & Symptoms: Positive: SOB, Nausea/Vomiting, Numbness/Weakness, Other: - back pain, knee pain, and diaphragm issues, ribs tender, left hand pain , not eating well, dry mouth; denies CAMPOS. Negative: Chest Pain - Additional Pertinent History Primary Care Physician: NADIA - Allergy/Home Medications Allergies/Adverse Reactions: Allergies Allergy/AdvReac Type Severity Reaction Status Date / Time paroxetine Allergy Rash Verified 09/04/18 13:37 Penicillins Allergy Rash And Verified 09/04/18 13:37 Itching PMH/Surg Hx/FS Hx/Imm Hx Endocrine/Hematology History: Reports: Hx Diabetes, Hx Thyroid Disease - hypothyroid Cardiovascular History: Reports: Hx Hypercholesterolemia, Hx Hypertension Respiratory History: Reports: Hx Asthma, Hx Chronic Obstructive Pulmonary Disease (COPD) Musculoskeletal History: Reports: Hx Arthritis - back, shoulder Sensory History: Reports: Hx Contacts or Glasses, Hx Hearing Aid, Hx Hearing Problem Opthamlomology History: Reports: Hx Contacts or Glasses Psychiatric History: Reports: Hx Depression - Surgical History Surgery Procedure, Year, and Place: Tonsillectomy as child. L hip ORIF 08/2018 Hx Anesthesia Reactions: No Infectious Disease History: No Infectious Disease History: Denies: Traveled Outside the [place] in Last 30 Days - Family History Known Family History: Negative: Blood Disorder - Social History Alcohol Use: None Substance Use Type: Reports: None Smoking Status (MU): Never Smoked Tobacco Have You Smoked in the Last Year: No Review of Systems Positive: Other - not eating well, Positive: Other - dry mouth Negative: Chest Pain Positive: Shortness Of Breath Positive: Vomiting Positive: Other - back pain, knee pain, diaphragm issues, ribs tender, left hand pain, heightened weakness, Negative: Headache All Other Systems Reviewed And Are Negative: Yes Physical Exam - Summary Physical Exam Summary: Appearance: frail elderly women lying in stretcher with no apparent distress, rest of vitals are unremarkable Skin: Warm, dry, no obvious rash Eyes: sclera anicteric, no conjunctival pallor ENT: mucous membranes moist, pharynx appears normal, Small contusion on chin from fall couple of days ago Neck: Supple, nontender Respiratory:Occasional crackles scattered on both lungs but good aeration. Cardiovascular: Normal S1, S2. No murmurs. Normal distal pulses in tibial and radial bilaterally. Abdomen: Soft, nontender, normal active bowel sounds present Musculoskeletal: Normal, Strength/ROM Intact Neurological: A&Ox3, awake and alert, mentation is normal, speech is fluent and appropriate Psychiatric: affect is normal, does not appear anxious or depressed Triage Information Reviewed: Yes Vital Signs On Initial Exam: Initial Vitals Temp Pulse Resp BP Pulse Ox 98.1 F 99 16 106/56 91 09/26/19 00:57 09/26/19 00:57 09/26/19 00:57 09/26/19 00:57 09/26/19 00:57 Vital Signs Reviewed: Yes Procedures - Sedation Patient Received Moderate/Deep Sedation with Procedure: No Diagnostics - Vital Signs Vital Signs Temp Pulse Resp BP Pulse Ox 09/26/19 01:01 99 107/53 91 09/26/19 01:00 99 92 09/26/19 00:57 98.1 F 99 16 106/56 91 - Laboratory Result Diagrams: 09/28/19 15:00 09/28/19 14:53 Lab Statement: Any lab studies that have been ordered have been reviewed, and results considered in the medical decision making process. - Radiology Chest X-Ray Radiology Interpretation Completed By: ED Physician Summary of Radiographic Findings: Per ED physician,. no acute process. Pending official report. - CT Brain CT CT Interpretation Completed By: Radiologist Summary of CT Findings: Per radiologist,. 1. 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 2. Minimal atrophy for age. 3. Otherwise negative noncontrast head CT. ED physician hsa reviewed this imaging report. Re-Evaluation - Re-Evaluation First Eval Re-Evaluation Time: 02:35 Comment: Physician discusses plan of care Adult Trauma Course/Dx - Course Course Of Treatment: This patient is a 88 year old F presenting to [facility] accompanied by 3 daughters with a chief complaint of falls since 09/26/19 at 0059, per triage. Patient reports falling frequently recently causing back pain , knee pain, and diaphragm issues. Daughter reports 1st fall 2 days ago due to getting up to go to bathroom at night hitting her head and banging her chin noting pts ribs tender and left hand pain. Daughters report today pt fell again with worsened SOB due to asthma, vomiting, heightened weakness. Pt denies CP, CAMPOS. Daughter reports not eating well, dry mouth. Physical Exam Findings reveals no abnormalities except for frail elderly women lying in stretcher with no apparent distress, rest of vitals are unremarkable, Small contusion on chin from fall couple of days ago, Occasional crackles scattered on both lungs but good aeration. CXR reveals no acute process. Brain CT reveals 1. 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 2. Minimal atrophy for age. 3. Otherwise negative noncontrast head CT. Test results with no significant abnormalities expect for WBC 13.5 H, Hgb 11.3 L, RDW 17 H, PLt Count Platelets clumped. H, Absolute Neuts 12.0 H, Absolute Lymphs 0.6 L, Sodium 126 L, Potassium 6.2 H, Chloride 99 L, Carbon Dioxide 17 L , BUN 62 H, Creatinine 3.00 H, BUN/Creatinine Ratio 2.1 H, Alkaline Phosphatase 108 H, C-Reactive Protein 197.57 H. We discussed patient care with Dr. Yoder , hospitalist, who accepts admission. Patient will be admitted with dx dehydration and acute kidney injury and patient is agreeable with this plan. - Diagnoses Provider Diagnoses: Dehydration, Acute kidney injury - Physician Notifications Discussed Care Of Patient With: Francy Yoder - hospitalist Time Discussed With Above Provider: 02:46 Instructed by Provider To: Admit As Inpatient - Critical Care Time Critical Care Time: 30-74 min - Significant dehydration inducing QAMAR requiring IV fluid boluses and extensive workup. Discharge ED - Sign-Out/Discharge Documenting (check all that apply): Patient Departure - admitted - Discharge Plan Condition: Fair Disposition: ADMITTED TO [facility] - Billing Disposition and Condition Condition: FAIR Disposition: Admitted to [facility] - Attestation Statements Document Initiated by Paulo: Yes Documenting Scribe: Millicent Butler Provider For Whom Paulo is Documenting (Include Credential): Dr. Mickey Peralta MD Scribe Attestation: Millicent Hilario, scribed for Dr. Mickey Peralta MD on 09/28/19 at 1844. Scribe Documentation Reviewed: Yes Provider Attestation: The documentation as recorded by the Millicent breaux accurately reflects the service I personally performed and the decisions made by me, Dr. Mickey Peralta MD Status of Scribe Document: Viewed
[2019-09-26 01:51] LABS: Albumin 3.3 g/dL (3.2-5.2); BUN/Creatinine Ratio 20.7 (8-20); C Reactive Protein 197.57 mg/L (<8.01); Calcium 9.1 mg/dL (8.6-10.3); EGFR African American 17.8 (>60); EGFR Non-African American 14.7 (>60); Globulin 3.2 g/dL (2-4); Total Bilirubin 0.4 mg/dL (0.2-1.0); Total Protein 6.5 g/dL (6.4-8.9)
[2019-09-26 01:57] LABS: Potassium 6.2 mmol/L (3.5-5.0)
[2019-09-26 02:11] LABS: ABS Basophils 0.1 10^3/ul (0-0.2); ABS Eosinophils 0.2 10^3/ul (0-0.6); ABS Lymphocytes 0.6 10^3/ul (1.0-4.8); ABS Monocytes 0.6 10^3/ul (0-0.8); Eosinophil % 1.2 %; Lymphocyte % 4.6 %
[2019-09-26 02:14] LABS: Platelet Count Platelets clumped. 10^3/uL (150-450)
[2019-09-26] MEDS: NS 0.9% 1000 ML** 2,000 ML IV ONE ×2 (03:25→05:17)
[2019-09-26 03:29] LABS: Urine Appearance Cloudy; Urine Color Yellow; Urine Urobilinogen Negative (Negative)
[2019-09-26 03:30] LABS: Urine Bilirubin Negative (Negative); Urine Blood Negative (Negative); Urine Glucose 3+(>=500 mg/dL) (Negative); Urine Ketones Negative (Negative); Urine Nitrite Negative (Negative); Urine Protein Negative (Negative)
--- NOTE | 2019-09-26 05:42 | HP ---
History of Present Illness - History of Present Illness Reason for Visit: fall History of Present Illness: 88 year old female with medical history of osteoarthritis was brought in tonight by 3 daughters with complaints of multiple falls. Patient started falling a few weeks ago after a hip fracture. Even though she completed physical therapy, her gait has not been right. All her falls, reportedly, have been mechanical due to bad knee and bad hip. Recently she was on abx for a toe infection. Toe infection also affected her gait. Now, her daughters brought pt in to the ED tonight because patient lives alone, has poor gait, when she falls , she crawls to things. Also, they felt that her appetite could be better. Recently, she started complaining of a general malaise and she vomited today. In the ER, patient herself has no complaints, no pain. A CT head was done and came back normal. She keeps requesting something to drink because of dry mouth. Vitals are normal. Initial lab concerning for QAMAR and hyperkalemia ( she is on a 2 weeks course of bactrim for toe infection). She has mild leukocytosis. - Past Medical History Cardiac: CAD, HTN Pulmonary: Asthma Musculoskeletal: Osteoarthritis Review of Systems - Measurements Intake and Output: Intake and Output Last 24 Hours 09/23/19 09/24/19 09/25/19 09/26/19 06:59 06:59 06:59 06:59 Intake Total 1000 Output Total 300 Balance 700 Weight 148 lb Intake: IV Fluids 1000 Output: Cortes 300 - Review of Systems Constitutional Symptoms: Positive: Weakness, Fatigue, Unexplained Falls Dermatology: Negative: Normal, Rash, Skin Lesions, Cancer, Skin Lumps, Other HEENT: Negative: Normal, Change in Hearing, Vertigo, Dental Problems, Tinnitus, Sinus Problem, Other Eyes: Negative: Normal, Change in Vision, Double Vision, Eye Pain, Glaucoma, Cataract, Contacts or Glasses, Other Thyroid: Negative: Normal, Goiter, Thyroid Nodule, Cold Intolerance, Heat Intolerance , Sweatiness, Tremor, Frequent Defecation, Constipation, Palpitations, Primary Hypothyroidism, Primary Hyperthyroidism, Weight Loss, Weight Gain, Change in Skin/Hair, Change in Menstruation, Radiation Exposure, Other Pulmonary: Negative: Normal, Cough, Sputum, Hemoptysis, Wheezing, Respiratory Distress, Shortness of Breath, COPD, Asthma, Exercise Intolerance, Home Oxygen, Other Cardiology: Negative: Normal, Chest Pain, Shortness of Breath, Palpitations, Swelling of Ankles, Peripheral Vascular Dis, Edema, Faintness, Syncope, Claudication, Proximal NocturnalDyspnea, Orthopnoea, Other Gastroenterology: Positive: Vomiting Genital - Urinary: Negative: Normal, Dysuria, Hematuria, Polyuria, Nocturia, Other Neurology: Negative: Normal, Headache, Migraines, Change in Vision, Diplopia, Dizziness , Change in Balancing, Change in Coordination, Change in Memory, Change in Speech, Change in Sphincter Function, Change in Walking, Numbness\Paresthesiae, Unexplained Weakness, Hx of Stroke\TIA, Hx of Seizures, Other Psychiatry: Negative: Normal, Depression, Anxiety, Depressed Mood, Anhedonia, Sexual Dysfunction, Weight Change, Guilt Feelings, Tearfulness, Unusual Fatigue, Unusual Anxiety, Suicidal Ideation, Hypomania, Eating Disorders, Other Objective Active Medications: Acetaminophen (Tylenol Tab*) 650 mg PO Q4H PRN PRN Reason: MILD PAIN or TEMP > 100.4 Atorvastatin Calcium (Lipitor*) 40 mg PO DAILY [facility] Docusate Sodium (Colace Cap*) 100 mg PO BID [facility] Heparin Sodium (Porcine) (Heparin Vial(*)) 5,000 units SUBCUT Q8HR [facility] Levothyroxine Sodium (Synthroid Tab*) 75 mcg PO DAILY@0600 [facility] Senna (Senokot 8.6 Mg Tab*) 1 tab PO BID [facility] Sertraline HCl (Zoloft*) 100 mg PO DAILY [facility] Vital Signs - 8 hr 09/26/19 09/26/19 09/26/19 00:57 01:00 01:01 Temperature 98.1 F Pulse Rate 99 99 99 Respiratory 16 Rate Blood Pressure 106/56 107/53 (mmHg) O2 Sat by Pulse 91 92 91 Oximetry 09/26/19 09/26/19 09/26/19 02:01 02:02 03:00 Temperature Pulse Rate 97 99 Respiratory 22 25 Rate Blood Pressure 120/63 (mmHg) O2 Sat by Pulse 91 91 Oximetry 09/26/19 09/26/19 09/26/19 03:03 03:05 03:43 Temperature Pulse Rate 94 Respiratory 25 28 27 Rate Blood Pressure 136/71 144/94 107/53 (mmHg) O2 Sat by Pulse 92 Oximetry 09/26/19 09/26/19 09/26/19 04:00 04:13 04:43 Temperature Pulse Rate 93 94 Respiratory 19 20 24 Rate Blood Pressure 119/66 109/56 (mmHg) O2 Sat by Pulse 91 93 Oximetry 09/26/19 05:00 Temperature Pulse Rate Respiratory 26 Rate Blood Pressure (mmHg) O2 Sat by Pulse Oximetry Appearance: NID Ears/Nose/Mouth/Throat: NL Teeth, Lips, Gums Neck: NL Appearance and Movements; NL JVP, Trachea Midline Respiratory: Symmetrical Chest Expansion and Respiratory Effort, Clear to Auscultation Cardiovascular: NL Sounds; No Murmurs; No JVD, RRR, No Edema Abdominal: NL Sounds; No Tenderness; No Distention, No Hepatosplenomegaly Lymphatic: No Cervical Adenopathy Extremities: No Edema Skin: No Rash or Ulcers Neurological: NL Muscle Strength and Tone, - - Not oriented to situation Result Diagrams: 09/26/19 01:25 09/26/19 01:25 Assess/Plan/Problems-Billing Assessment: - Patient Problems (1) Fall Current Visit: Yes Status: Acute Comment: mechanical from recent hip fracture, OA of knee and toe infection PT/OT (2) QAMAR (acute kidney injury) Current Visit: No Status: Acute Code(s): N17.9 - ACUTE KIDNEY FAILURE, UNSPECIFIED SNOMED Code(s): 69503824 Comment: Could have been from dehydration, if her falls prevented her to get aorund to go get food or drinks and she is on anti-hypertensive pills. Could be related to medications, she started taking bactrim for her toe infection. IVF (3) DM2 (diabetes mellitus, type 2) Current Visit: No Status: Acute Comment: A1C pending Lantus 20 nightly and meal coverage (4) Asthma Current Visit: No Status: Acute Code(s): J45.909 - UNSPECIFIED ASTHMA, UNCOMPLICATED SNOMED Code(s): 959122218 Comment: - No wheezing on exam or evidence of acute exacerbation. Satting 95 % on room air She apparently does take any of her inhalers at home, they were discontinued, as per daughter (5) DVT prophylaxis Current Visit: No Status: Acute Code(s): ZIG2251 - SNOMED Code(s): 769937354 Comment: heparin scc (6) HTN (hypertension) Current Visit: No Status: Acute Code(s): I10 - ESSENTIAL (PRIMARY) HYPERTENSION SNOMED Code(s): 06486483 Comment: hold losartan given QAMAR (7) HLD (hyperlipidemia) Current Visit: No Status: Acute Code(s): E78.5 - HYPERLIPIDEMIA, UNSPECIFIED SNOMED Code(s): 93132326 Comment: - Continue atrovasatin (8) Hypothyroid Current Visit: No Status: Acute Code(s): E03.9 - HYPOTHYROIDISM, UNSPECIFIED SNOMED Code(s): 45284407 Comment: Continue levothyroxine at home dose, 75 mcg daily (9) Full code status Current Visit: No Status: Acute Code(s): Z78.9 - OTHER SPECIFIED HEALTH STATUS SNOMED Code(s): 673539067
[2019-09-26 06:24] LABS: Hematocrit 34 % (35-47); Hemoglobin 10.7 g/dL (12.0-16.0); Mean Corpuscular HGB Conc 32 g/dL (31-36); Mean Corpuscular Hemoglobin 27 pg (27-31); Mean Corpuscular Volume 84 fL (80-97); Red Blood Count 4.02 10^6 /uL (3.70-4.87); Red Cell Distribution Width 17 % (10-15); White Blood Count 12.5 10^3/uL (3.5-10.8)
[2019-09-26] MEDS: Levothyroxine TAB* 75 MCG TAB PO SCH (06:27)
[2019-09-26] MEDS: Acetaminophen TAB* 325 MG PO PRN ×2 (06:27→17:46)
[2019-09-26 06:41] LABS: Albumin 3.2 g/dL (3.2-5.2); BUN/Creatinine Ratio 21.7 (8-20); Calcium 8.2 mg/dL (8.6-10.3); EGFR African American 18.5 (>60); EGFR Non-African American 15.3 (>60); Globulin 3.1 g/dL (2-4); Total Bilirubin 0.3 mg/dL (0.2-1.0); Total Protein 6.3 g/dL (6.4-8.9)
[2019-09-26 06:43] LABS: Potassium 6.2 mmol/L (3.5-5.0)
[2019-09-26] MEDS ORDERED: Ipratropium 0.5MG/2.5ML NEB* 0.5 MG/2.5 ML NEB.SOLN INH SCH (07:00)
[2019-09-26 07:02] LABS: ABS Basophils 0.1 10^3/ul (0-0.2); ABS Eosinophils 0.1 10^3/ul (0-0.6); ABS Lymphocytes 0.7 10^3/ul (1.0-4.8); ABS Monocytes 0.5 10^3/ul (0-0.8); Eosinophil % 0.9 %; Lymphocyte % 5.8 %; Platelet Count Platelets clumped. 10^3/uL (150-450)
[2019-09-26] MEDS: Heparin VIAL(*) 5000 UNITS/ML VIAL (FIVE THOUSAND) SUBCUT SCH ×3 (07:21→22:39)
[2019-09-26] MEDS: Atorvastatin* 40 MG TAB PO SCH (07:56)
[2019-09-26] MEDS: Docusate CAP* 100 MG PO SCH ×2 (07:57→21:35)
[2019-09-26] MEDS: Sertraline* 100 MG TAB PO SCH (07:57)
[2019-09-26] MEDS: Senna TAB 8.6 mg* TAB PO SCH ×2 (07:57→21:35)
[2019-09-26] MEDS: Insulin LISPRO* 1 UNITS UNIT SUBCUT SCH ×4 (07:57→21:56)
[2019-09-26] MEDS ORDERED: Sodium Polystyrene ORAL.SOL* 15 GM/60 ML BTL PO ONE (08:33)
[2019-09-26] MEDS ORDERED: NS 0.9% 1000 ML** 1,000 ML IV SCH (08:45)
[2019-09-26] MEDS ORDERED: Budesonide NEB* 0.5 MG/2 ML NEB.SOLN INH SCH (09:00)
[2019-09-26] MEDS ORDERED: Arformoterol (NF) 15 MCG/2 ML NEB.SOLN INH SCH (09:00)
[2019-09-26] MEDS ORDERED: Pneumococcal *Vac Polyvalent 0.5 ML VIAL IM ONE (09:00)
--- NOTE | 2019-09-26 13:10 | PN ---
Subjective Date of Service: 09/26/19 Interval History: patient reports that she is feeling fine. reports that she is here to have right toe evaluated for infection. Denies chest pain or shortness of breath. denies abd pain , n/v/d. Denies fever or chills. Labs this AM reviewed- hyperkalemia Family History: Unchanged from Admission Social History: Unchanged from Admission Past Medical History: Unchanged from Admission Objective Active Medications: Acetaminophen (Tylenol Tab*) 650 mg PO Q4H PRN PRN Reason: MILD PAIN or TEMP > 100.4 Last Admin: 09/26/19 06:27 Dose: 650 mg Atorvastatin Calcium (Lipitor*) 40 mg PO DAILY [facility] Last Admin: 09/26/19 07:56 Dose: 40 mg Docusate Sodium (Colace Cap*) 100 mg PO BID [facility] Last Admin: 09/26/19 07:57 Dose: 100 mg Heparin Sodium (Porcine) (Heparin Vial(*)) 5,000 units SUBCUT Q8HR [facility] Last Admin: 09/26/19 07:21 Dose: 5,000 units Sodium Chloride (Ns 0.9% 1000 Ml) 1,000 mls @ 75 mls/hr IV PER RATE [facility] Stop: 09/26/19 22:04 Last Admin: 09/26/19 10:15 Dose: 75 mls/hr Insulin Glargine (Lantus(*)) 20 units SUBCUT Q24H [facility] Insulin Human Lispro (Humalog*) 0 units SUBCUT ACHS [facility]; Protocol Last Admin: 09/26/19 11:51 Dose: Not Given Levothyroxine Sodium (Synthroid Tab*) 75 mcg PO DAILY@0600 [facility] Last Admin: 09/26/19 06:27 Dose: 75 mcg Senna (Senokot 8.6 Mg Tab*) 1 tab PO BID [facility] Last Admin: 09/26/19 07:57 Dose: 1 tab Sertraline HCl (Zoloft*) 100 mg PO DAILY [facility] Last Admin: 09/26/19 07:57 Dose: 100 mg Vital Signs - 8 hr 09/26/19 09/26/19 09/26/19 05:13 05:20 05:43 Temperature 97.0 F Pulse Rate 95 Respiratory 22 22 19 Rate Blood Pressure 110/67 110/67 121/55 (mmHg) O2 Sat by Pulse 95 Oximetry 09/26/19 09/26/19 09/26/19 06:17 08:00 12:22 Temperature 98.3 F 97.8 F Pulse Rate 93 93 Respiratory 20 18 17 Rate Blood Pressure 152/56 125/61 (mmHg) O2 Sat by Pulse 97 93 Oximetry 09/26/19 12:49 Temperature Pulse Rate Respiratory Rate Blood Pressure (mmHg) O2 Sat by Pulse 96 Oximetry Oxygen Devices in Use Now: None Appearance: appears comfotable , resting in bed, no acute distress Eyes: No Scleral Icterus Ears/Nose/Mouth/Throat: Clear Oropharnyx, Mucous Membranes Moist Neck: NL Appearance and Movements; NL JVP, Trachea Midline Respiratory: Symmetrical Chest Expansion and Respiratory Effort, Clear to Auscultation Cardiovascular: NL Sounds; No Murmurs; No JVD, No Edema Abdominal: NL Sounds; No Tenderness; No Distention Extremities: No Edema, No Clubbing, Cyanosis Skin: No Rash or Ulcers, - - no drainage noted to right great toe, very mild redness Neurological: Alert and Oriented x 3 Nutrition: Taking PO's Result Diagrams: 09/26/19 06:14 09/26/19 06:14 Assess/Plan/Problems-Billing Assessment: Ms. Rubi is an 88 y.o female with pmhx significant for DM , - Patient Problems (1) Fall Current Visit: Yes Status: Acute Comment: mechanical fall- recent toe infection PT/OT (2) QAMAR (acute kidney injury) Current Visit: No Status: Acute Code(s): N17.9 - ACUTE KIDNEY FAILURE, UNSPECIFIED SNOMED Code(s): 91704942 Comment: suspect this is related to dehydration and use of bactrim - recieved 2 liters on NS in the ER - minimal improvement of BUN/Creatinine - will start IV NS at 75 cc/hr - will get renal ultrasound to r/o any acute pathology - avoid nephrotoxic medications (3) Asthma Current Visit: No Status: Acute Code(s): J45.909 - UNSPECIFIED ASTHMA, UNCOMPLICATED SNOMED Code(s): 685405893 Comment: - stable - not in acute exacerbation - O2 sats 95% on room air - not currently on home (4) DM2 (diabetes mellitus, type 2) Current Visit: No Status: Acute Comment: A1C 9.0 continue Lantus 20 nightly lispro sliding scale (5) HLD (hyperlipidemia) Current Visit: No Status: Acute Code(s): E78.5 - HYPERLIPIDEMIA, UNSPECIFIED SNOMED Code(s): 48428447 Comment: - Continue atrovasatin (6) HTN (hypertension) Current Visit: No Status: Acute Code(s): I10 - ESSENTIAL (PRIMARY) HYPERTENSION SNOMED Code(s): 93476002 Comment: stable holding losartan given QAMAR (7) Hypothyroid Current Visit: No Status: Acute Code(s): E03.9 - HYPOTHYROIDISM, UNSPECIFIED SNOMED Code(s): 12711041 Comment: Continue levothyroxine 75 mcg daily (8) DVT prophylaxis Current Visit: No Status: Acute Code(s): JZD2844 - SNOMED Code(s): 980815706 Comment: heparin subQ (9) Full code status Current Visit: No Status: Acute Code(s): Z78.9 - OTHER SPECIFIED HEALTH STATUS SNOMED Code(s): 852158221 (10) Hyperkalemia Current Visit: Yes Status: Acute Code(s): E87.5 - HYPERKALEMIA SNOMED Code (s): 13415589 Status and Disposition: obv
[2019-09-26 17:21] LABS: BUN/Creatinine Ratio 24.1 (8-20); Calcium 8.3 mg/dL (8.6-10.3); EGFR African American 20.9 (>60); EGFR Non-African American 17.3 (>60)
[2019-09-26 17:23] LABS: Potassium 5.2 mmol/L (3.5-5.0)
[2019-09-26] MEDS: Insulin GLARGINE(*) 1 UNITS UNIT SUBCUT SCH (22:15)
[2019-09-27] MEDS ORDERED: NS 0.9% 1000 ML** 1,000 ML IV ONE (04:22)
[2019-09-27 04:51] LABS: Hematocrit 25 % (35-47); Hemoglobin 8.2 g/dL (12.0-16.0); Mean Corpuscular HGB Conc 32 g/dL (31-36); Mean Corpuscular Hemoglobin 27 pg (27-31); Mean Corpuscular Volume 84 fL (80-97); Red Blood Count 3.01 10^6 /uL (3.70-4.87); Red Cell Distribution Width 18 % (10-15); White Blood Count 8.8 10^3/uL (3.5-10.8)
[2019-09-27 04:52] LABS: ABS Eosinophils 0.1 10^3/ul (0-0.6); ABS Lymphocytes 0.9 10^3/ul (1.0-4.8); ABS Monocytes 0.4 10^3/ul (0-0.8); ABS Neutrophils 7.4 10^3/ul (1.5-7.7); Eosinophil % 0.9 %; Lymphocyte % 10.2 %
[2019-09-27 05:05] LABS: BUN/Creatinine Ratio 33.3 (8-20); Calcium 7.5 mg/dL (8.6-10.3); EGFR African American 29.2 (>60); EGFR Non-African American 24.2 (>60)
[2019-09-27 05:07] LABS: INR 1.23 (0.82-1.09)
[2019-09-27 05:09] LABS: Potassium 5.4 mmol/L (3.5-5.0)
[2019-09-27 05:22] LABS: Platelet Count Platelets clumped. 10^3/uL (150-450)
[2019-09-27] MEDS: Heparin VIAL(*) 5000 UNITS/ML VIAL (FIVE THOUSAND) SUBCUT SCH (05:30)
[2019-09-27] MEDS: NS 0.9% 1000 ML** 1,000 ML IV SCH (05:48)
[2019-09-27] MEDS: Levothyroxine TAB* 75 MCG TAB PO SCH (06:11)
[2019-09-27 06:18] LABS: Platelet Count, Citrated 161 10^3/ul (150-450)
[2019-09-27] MEDS: Insulin LISPRO* 1 UNITS UNIT SUBCUT SCH ×4 (08:16→21:37)
[2019-09-27] MEDS: Albuterol 2.5 MG/3 ML NEB.SOL* (0.083%) INH PRN (08:27)
[2019-09-27] MEDS: SPIRIVA Respimat* (tiotropium) 2.5 mcg/inh Inhaler INH SCH (08:30)
[2019-09-27 08:39] LABS: Hematocrit 24 % (35-47); Hemoglobin 7.6 g/dL (12.0-16.0); Mean Corpuscular HGB Conc 31 g/dL (31-36); Mean Corpuscular Hemoglobin 27 pg (27-31); Mean Corpuscular Volume 85 fL (80-97); Mean Platelet Volume 8.8 fL (7.4-10.4); Platelet Count 157 10^3/uL (150-450); Red Blood Count 2.84 10^6 /uL (3.70-4.87); Red Cell Distribution Width 18 % (10-15); White Blood Count 6.7 10^3/uL (3.5-10.8)
[2019-09-27 08:58] LABS: Platelet Count, Citrated 174 10^3/ul (150-450)
[2019-09-27] MEDS ORDERED: Aspirin EC TAB* 81 MG TAB.EC PO SCH (09:00)
[2019-09-27] MEDS: Atorvastatin* 40 MG TAB PO SCH (11:44)
[2019-09-27] MEDS: Docusate CAP* 100 MG PO SCH ×2 (12:01→21:00)
[2019-09-27] MEDS: Senna TAB 8.6 mg* TAB PO SCH ×2 (12:02→21:00)
[2019-09-27] MEDS: Sertraline* 100 MG TAB PO SCH (12:03)
[2019-09-27] MEDS ORDERED: Pantoprazole IV* 40 MG IV ONE (14:42)
[2019-09-27] MEDS ORDERED: PEG 3000 GI LAVAGE* 1 GALLON PO ONE (15:06)
--- NOTE | 2019-09-27 15:35 | CONS ---
CC: Dr. Fink * CONSULTATION REPORT: DATE OF CONSULT: 09/27/19 REQUESTING PHYSICIAN: Dr. Francy Yoder INDICATION: Bloody diarrhea. NARRATIVE: Mrs. Rubi is a pleasant 88-year-old female with history of osteoarthritis, coronary artery disease, hypertension, asthma, who was admitted yesterday for falls. The patient also was found to be in renal insufficiency. She had a head CT at admission that was unremarkable. This morning, she felt like she had to have a bowel movement, got up and had a very large bloody dark red and bright red bowel movement. She has had 2 further episodes of bloody stools. She denies any abdominal pain. No nausea, no vomiting. No abdominal pain. She has never had bleeding like this before. She denies ever having a colonoscopy before. She denies any family history of colorectal cancer. PAST MEDICAL HISTORY: Please see the HPI. Hypercholesterolemia, hypothyroid, depression. MEDICATIONS: Include: 1. Zoloft 100 mg a day. 2. Senna. 3. Synthroid 75 mcg. 4. Lipitor 40 mg. FAMILY HISTORY: No GI malignancies in the family. The patient again has never had a colonoscopy. REVIEW OF SYSTEMS: Twelve systems were reviewed and other than that mentioned in the HPI were unremarkable. PHYSICAL EXAM: Temperature is 97.6, blood pressure is 106/52, pulse is 110, respiratory rate of 20, O2 sat is 97%. General: Well-appearing elderly female , in no apparent distress. Alert, oriented, pleasant, fluent. HEENT: Mucous membranes are moist without lesions, ulcers, or exudate. Neck is supple. Trachea is midline. Head is normocephalic, atraumatic. Heart: Regular rate and rhythm, tachy. Lungs: Clear to auscultation. Abdomen: Positive bowel sounds. Soft, nontender, nondistended. No hepatosplenomegaly, masses, rebound , or guarding. Skin is warm and dry. Psych: Normal affect. DIAGNOSTIC STUDIES/LAB DATA: Of note, white count is 6.7, hemoglobin went from 11.3 to 10.7 to 8.2 to 7.6. Platelets of 157. INR is 1.23. BUN is 65, creatinine is 1.95. ASSESSMENT AND PLAN: This is a pleasant 88-year-old female who presented for falls and a workup for it and then had bloody diarrhea this morning that was painless. I had a long discussion with the patient and her [id number] regarding all the potential etiologies for her bloody stools. We discussed potential workup of this. Both the patient and her [id number] would like to be aggressive regarding this and they are requesting a colonoscopy. We discussed the colonoscopy in detail including the prep and including how it could affect an 88-year-old. She is understanding of all this and would like to proceed forward. We will make arrangements for the prep today and then potentially if she can drink the entire prep, which I do have some doubts about the colonoscopy in the future. We will continue to follow along. [id number]/CPS #: [id number] ADILENE
[2019-09-27 16:36] LABS: Hematocrit 28 % (35-47); Hemoglobin 9.2 g/dL (12.0-16.0); Mean Corpuscular HGB Conc 33 g/dL (31-36); Mean Corpuscular Hemoglobin 27 pg (27-31); Mean Corpuscular Volume 82 fL (80-97); Red Blood Count 3.43 10^6 /uL (3.70-4.87); Red Cell Distribution Width 18 % (10-15); White Blood Count 8.5 10^3/uL (3.5-10.8)
[2019-09-27 17:05] LABS: Platelet Count Platelets clumped. 10^3/uL (150-450)
[2019-09-27] MEDS: Pantoprazole* 80 mg IN NS 80 MG/250 ML BAG IV SCH (17:25)
--- NOTE | 2019-09-27 17:38 | PN ---
Subjective Date of Service: 09/27/19 Interval History: events overnight reviewed- CAT call this for episode of large bloody BM. Lab work reviewed h/h dropped. Patient evaluated at the bedside, c/o shortness of breath , tachycardic on the monitor. Patient denies chest pain . denies abd pain n/v/d. denies fever or chills. 1500- patient was given 1 unit of blood - states that she is feeling better, shortness of breath has improved, but remains tachycardic on the monitor. Patient was seen by DR. Edouard. who has recommended a colonoscopy. Patient has had 2 more episodes of dark red jelly consistency stool . will transfer to the ICU d/t tachycardia and concern further GI bleeding Family History: Unchanged from Admission Social History: Unchanged from Admission Past Medical History: Unchanged from Admission Objective Active Medications: Acetaminophen (Tylenol Tab*) 650 mg PO Q4H PRN PRN Reason: MILD PAIN or TEMP > 100.4 Last Admin: 09/26/19 17:46 Dose: 650 mg Albuterol (Ventolin 2.5 Mg/3 Ml Neb.Sunshine*) 2.5 mg INH Q4H PRN PRN Reason: SOB/WHEEZING Last Admin: 09/27/19 08:27 Dose: 2.5 mg Atorvastatin Calcium (Lipitor*) 40 mg PO DAILY [facility] Last Admin: 09/27/19 11:44 Dose: Not Given Docusate Sodium (Colace Cap*) 100 mg PO BID [facility] Last Admin: 09/27/19 12:01 Dose: Not Given Sodium Chloride (Ns 0.9% 1000 Ml) 1,000 mls @ 100 mls/hr IV PER RATE [facility] Last Admin: 09/27/19 05:48 Dose: 100 mls/hr Pantoprazole Sodium (Protonix Iv Bag*) 80 mg in 250 mls @ 25 mls/hr IV Q10H [facility] Insulin Glargine (Lantus(*)) 20 units SUBCUT Q24H [facility] Last Admin: 09/26/19 22:15 Dose: Not Given Insulin Human Lispro (Humalog*) 0 units SUBCUT ACHS [facility]; Protocol Last Admin: 09/27/19 12:54 Dose: Not Given Levothyroxine Sodium (Synthroid Tab*) 75 mcg PO DAILY@0600 [facility] Last Admin: 09/27/19 06:11 Dose: 75 mcg Senna (Senokot 8.6 Mg Tab*) 1 tab PO BID [facility] Last Admin: 09/27/19 12:02 Dose: Not Given Sertraline HCl (Zoloft*) 100 mg PO DAILY [facility] Last Admin: 09/27/19 12:03 Dose: Not Given Tiotropium Latimer (Spiriva Respimat 2.5 Mcg) 2 puff INH DAILY [facility] Last Admin: 09/27/19 08:30 Dose: Not Given Vital Signs - 8 hr 09/27/19 11:12 Temperature 97.6 F Pulse Rate 110 Respiratory 20 Rate Blood Pressure 106/52 (mmHg) O2 Sat by Pulse 97 Oximetry Oxygen Devices in Use Now: None Appearance: alert and oriented x 3 , no acute distress, [place] Eyes: No Scleral Icterus Ears/Nose/Mouth/Throat: Clear Oropharnyx, Mucous Membranes Moist Neck: NL Appearance and Movements; NL JVP, Trachea Midline Respiratory: Symmetrical Chest Expansion and Respiratory Effort, Clear to Auscultation Cardiovascular: NL Sounds; No Murmurs; No JVD, No Edema Abdominal: NL Sounds; No Tenderness; No Distention Extremities: No Edema, No Clubbing, Cyanosis Skin: No Rash or Ulcers Neurological: Alert and Oriented x 3 Nutrition: Taking PO's Result Diagrams: 09/28/19 03:36 09/28/19 14:53 Microbiology and Other Data: Microbiology 09/27/19 13:35 Stool Occult Blood (RAVEN) - Final Stool 09/27/19 09:10 Stool Occult Blood (RAVEN) - Final Stool Assess/Plan/Problems-Billing Assessment: Ms. Rubi is an 88 y.o female with pmhx significant for DM , asthma, hld, hypothyroid who presented to the ER with falls and weakness was found tohave dehydration and QAMAR and developed a GI bleeding. - Patient Problems (1) GI bleed Current Visit: Yes Status: Acute Code(s): K92.2 - GASTROINTESTINAL HEMORRHAGE, UNSPECIFIED SNOMED Code(s): 64910649 Comment: 3 episodes of dark red loose stools - patient with shortness of breath and tachycardia - given 1 unit of blood - will transfer to the ICU for further monitoring - GI consulted and recommended colonoscopy - will continue IVF and trend h/h (2) Fall Current Visit: Yes Status: Acute Comment: mechanical fall- recent toe infection PT/OT (3) QAMAR (acute kidney injury) Current Visit: No Status: Acute Code(s): N17.9 - ACUTE KIDNEY FAILURE, UNSPECIFIED SNOMED Code(s): 62388544 Comment: improving suspect this is related to dehydration and use of bactrim - recieved 2 liters on NS in the ER- continued on IVF fluids - BUN/Creatinine improving - renal ultrasound - WNL - avoid nephrotoxic medications (4) Asthma Current Visit: No Status: Acute Code(s): J45.909 - UNSPECIFIED ASTHMA, UNCOMPLICATED SNOMED Code(s): 788918020 Comment: - stable - not in acute exacerbation - O2 sats 95% on room air - not currently on home (5) DM2 (diabetes mellitus, type 2) Current Visit: No Status: Acute Comment: A1C 9.0 continue Lantus 20 nightly lispro sliding scale (6) HLD (hyperlipidemia) Current Visit: No Status: Acute Code(s): E78.5 - HYPERLIPIDEMIA, UNSPECIFIED SNOMED Code(s): 05330472 Comment: - Continue atrovasatin (7) HTN (hypertension) Current Visit: No Status: Acute Code(s): I10 - ESSENTIAL (PRIMARY) HYPERTENSION SNOMED Code(s): 51972081 Comment: stable holding losartan given QAMAR (8) Hypothyroid Current Visit: No Status: Acute Code(s): E03.9 - HYPOTHYROIDISM, UNSPECIFIED SNOMED Code(s): 03128016 Comment: Continue levothyroxine 75 mcg daily (9) Hyperkalemia Current Visit: Yes Status: Acute Code(s): E87.5 - HYPERKALEMIA SNOMED Code (s): 74448100 Comment: improved given kayexalate yesterday - potassium improved to 5.2 repeat today 5.4 (10) DVT prophylaxis Current Visit: No Status: Acute Code(s): HNN5908 - SNOMED Code(s): 229875191 Comment: heparin subQ (11) Full code status Current Visit: No Status: Acute Code(s): Z78.9 - OTHER SPECIFIED HEALTH STATUS SNOMED Code(s): 639973374 Status and Disposition: inpatient - GI bleed transfer to ICU shortness of breath and tachycardia
[2019-09-27] MEDS: Insulin GLARGINE(*) 1 UNITS UNIT SUBCUT SCH (21:37)
[2019-09-28] MEDS: Pantoprazole* 80 mg IN NS 80 MG/250 ML BAG IV SCH ×3 (01:18→23:02)
[2019-09-28 03:57] LABS: ABS Basophils 0.1 10^3/ul (0-0.2); ABS Eosinophils 0.2 10^3/ul (0-0.6); ABS Lymphocytes 1.9 10^3/ul (1.0-4.8); ABS Monocytes 0.6 10^3/ul (0-0.8); ABS Neutrophils 4.5 10^3/ul (1.5-7.7); Eosinophil % 3.1 %; Hematocrit 26 % (35-47); Hemoglobin 8.6 g/dL (12.0-16.0); Lymphocyte % 25.5 %; Mean Corpuscular HGB Conc 33 g/dL (31-36); Mean Corpuscular Hemoglobin 27 pg (27-31); Mean Corpuscular Volume 84 fL (80-97); Nucleated Red Blood Cells % 0.1; Platelet Count Platelets clumped. 10^3/uL (150-450); Red Blood Count 3.14 10^6 /uL (3.70-4.87); Red Cell Distribution Width 18 % (10-15); White Blood Count 7.3 10^3/uL (3.5-10.8)
[2019-09-28 03:59] LABS: BUN/Creatinine Ratio 44.7 (8-20); Calcium 7.8 mg/dL (8.6-10.3); EGFR African American 49.7 (>60); EGFR Non-African American 41.1 (>60)
[2019-09-28 04:03] LABS: Potassium 5.1 mmol/L (3.5-5.0)
[2019-09-28] MEDS: NS 0.9% 1000 ML** 1,000 ML IV SCH (05:10)
[2019-09-28] MEDS: Levothyroxine TAB* 75 MCG TAB PO SCH (05:10)
[2019-09-28] MEDS ORDERED: Furosemide IV* 10 MG/ML 2 ML VIAL (20 MG) IV ONE (09:14)
[2019-09-28] MEDS: SODIUM BICARBONATE IVPB SCH ×2 (09:58→19:46)
[2019-09-28] MEDS: D5W IVPB SCH ×2 (09:58→19:46)
[2019-09-28] MEDS: 1/2 NS IVPB SCH ×2 (09:58→19:46)
[2019-09-28] MEDS: SPIRIVA Respimat* (tiotropium) 2.5 mcg/inh Inhaler INH SCH (10:05)
[2019-09-28] MEDS: Insulin LISPRO* 1 UNITS UNIT SUBCUT SCH ×5 (10:07→23:01)
[2019-09-28] MEDS: Sertraline* 100 MG TAB PO SCH (10:59)
[2019-09-28] MEDS: Atorvastatin* 40 MG TAB PO SCH (10:59)
[2019-09-28 13:57] LABS: Urine Appearance Clear; Urine Bilirubin Negative (Negative); Urine Blood Negative (Negative); Urine Color Yellow; Urine Glucose 3+(>=500 mg/dL) (Negative); Urine Ketones 1+ (Negative); Urine Nitrite Negative (Negative); Urine Protein Negative (Negative); Urine Specific Gravity 1.015 (1.010-1.030); Urine Urobilinogen Negative (Negative)
[2019-09-28 15:35] LABS: BUN/Creatinine Ratio 42.7 (8-20); Calcium 7.9 mg/dL (8.6-10.3); EGFR Non-African American 50.5 (>60); Potassium 4.3 mmol/L (3.5-5.0)
--- NOTE | 2019-09-28 15:42 | ECHO ---
*[facility]* [place] [address] Fax #: [phone] Transthoracic Echocardiogram Patient: Fouzia Rubi : 1930 Study Date: 09/28/2019 Age: 88 Gender: F HR: 106 bpm Height: 62 in /157.5 cm BSA: 1.58 m^2 Weight: 127.7 lb /58.1 kg BMI: 23.4 kg/m^2 *Senior [employer] Programmer: * Shantell Fournier RDCS RN *Referring Physician: * Komal Day *Reading Physician: * Kingston Bailey MD Indications: SOB. History: Coronary artery disease. Asthma. COPD. Risk factors: Hypertension. Diabetes mellitus. Dyslipidemia. Conclusions Summary: - Left ventricle: Systolic function is hyperdynamic. The estimated ejection fraction is 65-70%. There is turbulence and increased velocities in the left ventricular outflow tract measuring 2.4 m/sec and up to 2.7 m/sec with Valsalva. Consistent with mild left ventricle ouflow tract obstruction Wall motion is normal; there are no regional wall motion abnormalities. - Mitral valve: There is trace to mild regurgitation. - Aortic valve: The findings are consistent with mild stenosis. There is trace to mild regurgitation. The peak systolic velocity is 2.32 m/sec. The mean systolic gradient is 10.0 mm Hg. The LVOT to aortic valve VTI ratio is 0.56. The valve area by the peak velocity method is 1.28 cm^2. - Tricuspid valve: There is mild regurgitation. - Study data: No prior study is available for comparison. Study data: Transthoracic echocardiogram. Procedure: Transthoracic echocardiography was performed. Image quality was fair. The study was technically limited due to COPD. Complete 2D, spectral Doppler, and color flow Doppler. Location: ICU Patient status: Inpatient. Patient room number: ICU 6. No prior study is available for comparison. Rhythm: Tachycardia. Findings Left ventricle: The cavity size is mildly reduced. Wall thickness is mildly increased. The septal knuckle measures 1.3 cm. Systolic function is hyperdynamic. The estimated ejection fraction is 65-70%. There is turbulence and increased velocities in the left ventricular outflow tract measuring 2.4 m/sec and up to 2.7 m/sec with Valsalva. Wall motion is normal; there are no regional wall motion abnormalities. There is no consistent Doppler evidence of clinically significant diastolic dysfunction. Right ventricle: The cavity size is normal. Systolic function is normal. Left atrium: The atrium is normal in size. Right atrium: The atrium is normal in size. Mitral valve: The Mitral valve annulus appears calcified. The leaflets are mildly thickened. The findings are consistent with borderline stenosis. There is trace to mild regurgitation. Aortic valve: Not well visualized. The leaflets are mildly thickened. The findings are consistent with mild stenosis. There is trace to mild regurgitation. Tricuspid valve: The valve is structurally normal. There is no evidence of stenosis. There is mild regurgitation. Pulmonic valve: Not well visualized. There is no significant regurgitation. Aorta: Aortic root: The aortic root is not dilated. Ascending aorta: The ascending aorta is not dilated. Aortic arch: The aortic arch is not visualized. Pericardium: There is no pericardial effusion. Pulmonary arteries: Not well visualized. Systolic pressure can not be accurately estimated. Systemic veins: Inferior vena cava: The vessel is normal in size. There is (>= 50%) respiratory change in the IVC dimension. Measurements Left ventricle Value Ref Aortic valve Value Ref SHIV, LAX (L) 2.7 cm 3.8 - 5.2 Michelle diam, ED 1.7 cm ----- ESD, LAX (L) 1.8 cm 2.2 - 3.5 Michelle diam/bsa, ED 1.1 cm/m^2 ----- FS, LAX 35 % 27 - 45 Peak v, S 2.32 m/sec ----- PW, ED (H) 1.0 cm 0.6 - 0.9 VTI, S 40.8 cm ----- IVS/PW, ED 1.17 Mean grad, S 10.0 mm Hg ----- E', lat michelle, TDI (L) 5.8 cm/sec >=10.0 Peak grad, S 22.0 mm Hg -- --- E/e', lat michelle, 17 LVOT/AV, VTI ratio 0.56 ----- TDI DANNIE, VTI 1.43 cm^2 ----- E', med michelle, TDI (L) 5.7 cm/sec >=7.0 DANNIE, Vmax 1.28 cm^2 -- --- E/e', med michelle, 17 TDI Mitral valve Value Ref E', avg, TDI 5.8 cm/sec Peak E 0.96 m/sec ----- E/e', avg, TDI (H) 17 <=14 Peak A 1.59 m/sec -- --- Decel time 250 ms ----- LVOT Value Ref PHT 88 ms ----- Diam, S 1.80 cm Mean grad, D 5.0 mm Hg ----- Area 2.5 cm^2 Peak grad, D 12.0 mm Hg ----- Peak mita, S 1.17 m/sec Peak E/A ratio 0.6 ----- VTI, S 23.0 cm MVA, PHT 2.5 cm^2 ----- Peak grad, S 5 mm Hg Mean grad, S 4 mm Hg Pulmonic valve Value Ref SV 58 ml Peak v, S 0.98 m/sec ----- SV/bsa 37 ml/m^2 Peak grad, S 4.0 mm Hg ----- Ventricular septum Value Ref Tricuspid valve Value Ref IVS, ED (H) 1.2 cm 0.6 - 0.9 TR peak v 2.8 m/sec <=2.8 Peak RV-RA grad, S 31 mm Hg ----- Right ventricle Value Ref Max TR mita 2.8 m/sec ----- SHIV, LAX 2.6 cm SHIV minor ax, A4C 2.9 cm 1.9 - 3.5 Aortic root Value Ref mid Root diam 2.9 cm <3.8 Pressure, S 34 mm Hg Ascending aorta Value Ref Left atrium Value Ref AAo AP diam, S 3.3 cm ----- AP dim, ES 2.90 cm 2.70 - 3.80 Pulmonary artery Value Ref ML dim, A4C 3.8 cm Pressure, S 30.0 mm Hg ----- SI dim, A4C 4.7 cm Vol/bsa, ES, 1-p 24 ml/m^2 11 - 40 Inferior vena cava Value Ref A4C Diam 1.1 cm ----- Vol/bsa, ES, A/L 23 ml/m^2 16 - 34 Right atrium Value Ref SI dim, ES 3.9 cm 3.4 - 5.3 ML dim, ES, A4C 3.2 cm 2.6 - 4.4 SI dim, ES, A4C 3.9 cm 3.4 - 5.3 Estimated RAP 3 mm Hg Legend: (L) and (H) renae values outside specified reference range. Prepared and electronically signed by Kingston Bailey MD 09/28/2019 15:41
[2019-09-28 16:29] LABS: Hematocrit 25 % (35-47); Hemoglobin 7.8 g/dL (12.0-16.0)
--- NOTE | 2019-09-28 16:30 | PN ---
Subjective Date of Service: 09/28/19 Interval History: events overnight reviewed- patient with 1 episode of cranberry loose stools. Denies abd pain , nausea or vomiting. Denies fever or chills. Patient is currently NPO - spoke to Dr. Harding for GI who reports that she will upper EDG today, to evaluate for a source of bleeding. Denies chest pain or shortness of breath. Labs reviewed - Co2 12, chloride 118 - will start d51/2ns with 1 amp of bicarb and repeat BMP at 1500. 1900- spoke to Dr. Harding - upper EDG showed large duodenal ulcer, black spot at the base- likely the source of her bleeding, no current signs of bleeding. recommended Protonix drip until then switch to omeprazole 40 mg po BID Family History: Unchanged from Admission Social History: Unchanged from Admission Past Medical History: Unchanged from Admission Objective Active Medications: Acetaminophen (Tylenol Tab*) 650 mg PO Q4H PRN PRN Reason: MILD PAIN or TEMP > 100.4 Last Admin: 09/26/19 17:46 Dose: 650 mg Albuterol (Ventolin 2.5 Mg/3 Ml Neb.Sunshine*) 2.5 mg INH Q4H PRN PRN Reason: SOB/WHEEZING Last Admin: 09/27/19 08:27 Dose: 2.5 mg Atorvastatin Calcium (Lipitor*) 40 mg PO DAILY [facility] Last Admin: 09/28/19 10:59 Dose: 40 mg Pantoprazole Sodium (Protonix Iv Bag*) 80 mg in 250 mls @ 25 mls/hr IV Q10H [facility] Last Admin: 09/28/19 11:45 Dose: 25 mls/hr Sodium Bicarbonate 50 meq/ (Dextrose/Sodium Chloride) 1,000 mls @ 100 mls/hr IVPB Q10H [facility] Stop: 09/29/19 05:59 Last Admin: 09/28/19 09:58 Dose: 100 mls/hr Insulin Glargine (Lantus(*)) 20 units SUBCUT Q24H [facility] Last Admin: 09/27/19 21:37 Dose: Not Given Insulin Human Lispro (Humalog*) 0 units SUBCUT ACHS [facility]; Protocol Last Admin: 09/28/19 13:34 Dose: 2 unit Levothyroxine Sodium (Synthroid Tab*) 75 mcg PO DAILY@0600 [facility] Last Admin: 09/28/19 05:10 Dose: 75 mcg Sertraline HCl (Zoloft*) 100 mg PO DAILY [facility] Last Admin: 09/28/19 10:59 Dose: 100 mg Tiotropium [place] (Spiriva Respimat 2.5 Mcg) 2 puff INH DAILY [facility] Last Admin: 09/28/19 10:05 Dose: 2 puff Vital Signs - 8 hr 09/28/19 09/28/19 09/28/19 09:00 10:00 11:00 Temperature 98.2 F 98.1 F Pulse Rate 104 102 107 Respiratory 24 18 24 Rate Blood Pressure 148/68 134/70 136/85 (mmHg) O2 Sat by Pulse 97 96 97 Oximetry 09/28/19 09/28/19 09/28/19 11:30 12:00 13:00 Temperature 98.8 F 98.8 F Pulse Rate 107 107 Respiratory 24 21 18 Rate Blood Pressure 132/70 125/69 (mmHg) O2 Sat by Pulse 97 95 Oximetry 09/28/19 09/28/19 14:00 15:00 Temperature 98.8 F 99.0 F Pulse Rate 104 105 Respiratory 26 25 Rate Blood Pressure 151/79 127/71 (mmHg) O2 Sat by Pulse 97 95 Oximetry Oxygen Devices in Use Now: None Appearance: appears comfortable resting in bed, no acute distress, alert and oriented x3 Eyes: No Scleral Icterus Ears/Nose/Mouth/Throat: Clear Oropharnyx, Mucous Membranes Moist Neck: NL Appearance and Movements; NL JVP, Trachea Midline Respiratory: Symmetrical Chest Expansion and Respiratory Effort, Clear to Auscultation, - - scattered exp wheezes Cardiovascular: NL Sounds; No Murmurs; No JVD, No Edema Abdominal: NL Sounds; No Tenderness; No Distention Extremities: No Edema, No Clubbing, Cyanosis Skin: No Rash or Ulcers Neurological: Alert and Oriented x 3 Nutrition: Taking PO's Result Diagrams: 09/28/19 15:00 09/28/19 14:53 Microbiology and Other Data: Microbiology 09/27/19 13:35 Stool Occult Blood (RAVEN) - Final Stool 09/27/19 09:10 Stool Occult Blood (RAVEN) - Final Stool Assess/Plan/Problems-Billing Assessment: Ms. Rubi is an 88 y.o female with pmhx significant for DM , asthma, hld, hypothyroid who presented to the ER with falls and weakness was found tohave dehydration and QAMAR and developed a GI bleeding. - Patient Problems (1) GI bleed Current Visit: Yes Status: Acute Code(s): K92.2 - GASTROINTESTINAL HEMORRHAGE, UNSPECIFIED SNOMED Code(s): 07497241 Comment: 1 episodes of dark red loose stools overnight - patient with mild shortness of breath and conitnues to be tachycardia - given 1 unit of blood yesterday h/h 8.05/05 - ICU - GI consulted and recommended colonoscopy - did not complete prep, cancelled - will have EDG today- show large duodenal ulcer black at the base likely source of the bleeding , recommeneded continuing protonix drip until and then starting omeprazole 40 mg po BID started on full liquid diet - continue IV protonix drip for now until results of EDG. - will continue IVF and trend h/h (2) Fall Current Visit: Yes Status: Acute Comment: mechanical fall- recent toe infection- suspect this was related to dehydration from bactrim and deconditioning PT- recommended skill acute PT at discharge (3) QAMAR (acute kidney injury) Current Visit: No Status: Acute Code(s): N17.9 - ACUTE KIDNEY FAILURE, UNSPECIFIED SNOMED Code(s): 72629996 Comment: improving suspect this is related to dehydration and use of bactrim - IVF changed to d51/2 NS with 1 amp bicarb. x 2 liters - BUN/Creatinine improving - renal ultrasound - WNL - avoid nephrotoxic medications (4) Asthma Current Visit: No Status: Acute Code(s): J45.909 - UNSPECIFIED ASTHMA, UNCOMPLICATED SNOMED Code(s): 540214486 Comment: - stable - not in acute exacerbation - O2 sats 95% on room air - not currently on home (5) DM2 (diabetes mellitus, type 2) Current Visit: No Status: Acute Comment: A1C 9.0 continue Lantus 20 nightly lispro sliding scale (6) HLD (hyperlipidemia) Current Visit: No Status: Acute Code(s): E78.5 - HYPERLIPIDEMIA, UNSPECIFIED SNOMED Code(s): 72275779 Comment: - Continue atrovasatin (7) HTN (hypertension) Current Visit: No Status: Acute Code(s): I10 - ESSENTIAL (PRIMARY) HYPERTENSION SNOMED Code(s): 07843949 Comment: stable holding losartan given QAMAR (8) Hypothyroid Current Visit: No Status: Acute Code(s): E03.9 - HYPOTHYROIDISM, UNSPECIFIED SNOMED Code(s): 69308903 Comment: Continue levothyroxine 75 mcg daily (9) Hyperkalemia Current Visit: Yes Status: Acute Code(s): E87.5 - HYPERKALEMIA SNOMED Code (s): 80389088 Comment: improved given kayexalate yesterday - potassium improved to 5.2 repeat today 5.4 (10) DVT prophylaxis Current Visit: No Status: Acute Code(s): WMB8254 - SNOMED Code(s): 113641159 Comment: heparin subQ (11) Full code status Current Visit: No Status: Acute Code(s): Z78.9 - OTHER SPECIFIED HEALTH STATUS SNOMED Code(s): 624291026 Status and Disposition: inpatient - GI bleed transfer to ICU shortness of breath and tachycardia
[2019-09-28] MEDS ORDERED: fentaNYL* 50 MCG/ML 2 ML VIAL (100 MCG VIAL) ONE (17:01)
[2019-09-28] MEDS ORDERED: Midazolam* 1 MG/ML 10 ML VIAL (10 MG) ONE (17:01)
[2019-09-28] MEDS: Docusate CAP* 100 MG PO SCH (18:08)
[2019-09-28] MEDS: Senna TAB 8.6 mg* TAB PO SCH (18:08)
--- NOTE | 2019-09-28 23:02 | PRO ---
DATE: 09/28/19 - ROOM #ICU-06 REFERRING PHYSICIAN: Abhay Fink, DO * PROCEDURE: Upper gastrointestinal endoscopy through to duodenum bulb. INDICATION: This 88-year-old woman fell at home and came to the emergency room weak. She then began passing black to deep red stool and her hemoglobin fell into the 8s. After GI consultation, colonoscopy was the plan, though the patient refused to drink any of the preparation. In reviewing the situation again, it seemed as though an upper endoscopy could identify issues that could be treated even though the yield is unclear This was discussed with the patient 's [id number], who is a nurse. ENDOSCOPIST: Dr. Harding. MEDICATIONS: Midazolam 2, fentanyl 37.5. FINDINGS: She is an elderly woman, positioned left side down and moderate sedation induced with sequential doses of medication. She tolerated the exam very well. EGD: Larynx - symmetric, limited views. Esophagus - easily entered and the mucosa is normal in the upper, mid, and lower esophagus with the EG junction at 39 showing a small ring and then a small hiatal hernia. Stomach - small hiatal hernia and in the cardia, there was a single diminutive AVM, but no sign of having bled. The rugal pattern and body and antrum had normal contours. There were few diminutive antral erosions. Duodenum - the pylorus and proximal bulb were normal. The distal bulb had a large necrotic ulcer medium depth, extensive with a black spot in the center. There was no bleeding and the patient has been clinically not bleeding for 18 hours and possibly longer and was decided to continue the Protonix drip knowing that the culprit had been identified. IMPRESSION: 1. Small hiatal hernia. 2. Solitary cardiac arteriovenous malformation. 3. Duodenal ulcer - not bleeding - will need extended PPI drip or BID PPI IV [id number]/[facility] #: [id number] [facility]
[2019-09-28 23:05] LABS: Hematocrit 22 % (35-47); Hemoglobin 7.1 g/dL (12.0-16.0)
[2019-09-28] MEDS ORDERED: Furosemide IV* 10 MG/ML VIAL (40 MG) IV SLOW PU ONE (23:30)
[2019-09-29 05:04] LABS: INR 1.52 (0.82-1.09)
[2019-09-29 05:11] LABS: BUN/Creatinine Ratio 30.1 (8-20); Calcium 7.7 mg/dL (8.6-10.3); EGFR African American 68.7 (>60); EGFR Non-African American 56.8 (>60); Potassium 3.6 mmol/L (3.5-5.0)
[2019-09-29] MEDS: Levothyroxine TAB* 75 MCG TAB PO SCH (05:13)
[2019-09-29 06:22] LABS: Hematocrit 22 % (35-47); Hemoglobin 7.1 g/dL (12.0-16.0); Mean Corpuscular HGB Conc 33 g/dL (31-36); Mean Corpuscular Hemoglobin 27 pg (27-31); Mean Corpuscular Volume 82 fL (80-97); Mean Platelet Volume 8.9 fL (7.4-10.4); Platelet Count 44 10^3/uL (150-450); Red Blood Count 2.67 10^6 /uL (3.70-4.87); Red Cell Distribution Width 18 % (10-15)
[2019-09-29] MEDS: Pantoprazole* 80 mg IN NS 80 MG/250 ML BAG IV SCH ×3 (07:36→19:54)
[2019-09-29] MEDS: Atorvastatin* 40 MG TAB PO SCH (08:24)
[2019-09-29] MEDS: Insulin LISPRO* 1 UNITS UNIT SUBCUT SCH ×4 (08:24→21:18)
[2019-09-29] MEDS: Sertraline* 100 MG TAB PO SCH (08:24)
[2019-09-29] MEDS: SPIRIVA Respimat* (tiotropium) 2.5 mcg/inh Inhaler INH SCH (09:37)
--- NOTE | 2019-09-29 10:16 | PN ---
Subjective Date of Service: 09/29/19 Interval History: Ms. Rubi is feeling okay today. She is feeling tired and slightly SOB, similar to the last few days, but not worse. Her feet are itchy. Denies CP, abdominal pain, N/V. Tolerating liquids. No concerns from nursing. Tele: Sinus tachycardia in the low 100s. Family History: Unchanged from Admission Social History: Unchanged from Admission Past Medical History: Unchanged from Admission Objective Active Medications: Acetaminophen (Tylenol Tab*) 650 mg PO Q4H PRN MILD PAIN or TEMP > 100.4 Albuterol (Ventolin 2.5 Mg/3 Ml Neb.Sunshine*) 2.5 mg INH Q4H PRN SOB/WHEEZING Atorvastatin Calcium (Lipitor*) 40 mg PO DAILY [facility] Pantoprazole Sodium (Protonix Iv Bag*) 80 mg in 250 mls @ 25 mls/hr IV Q10H [facility] Insulin Glargine (Lantus(*)) 20 units SUBCUT Q24H [facility] Insulin Human Lispro (Humalog*) 0 units SUBCUT ACHS [facility]; Protocol Levothyroxine Sodium (Synthroid Tab*) 75 mcg PO DAILY@0600 [facility] Sertraline HCl (Zoloft*) 100 mg PO DAILY [facility] Tiotropium [place] (Spiriva Respimat 2.5 Mcg) 2 puff INH DAILY [facility] Vital Signs - 8 hr 09/29/19 09/29/19 09/29/19 03:00 04:00 05:00 Temperature 98.1 F 98.1 F 98.2 F Pulse Rate 99 99 100 Respiratory 18 23 18 Rate Blood Pressure 124/92 132/77 (mmHg) O2 Sat by Pulse 94 92 93 Oximetry 09/29/19 09/29/19 09/29/19 05:45 06:00 07:00 Temperature 98.4 F 98.6 F 98.4 F Pulse Rate 104 103 103 Respiratory 20 18 18 Rate Blood Pressure 148/82 135/76 140/77 (mmHg) O2 Sat by Pulse 92 93 93 Oximetry 09/29/19 09/29/19 08:00 09:00 Temperature 98.2 F 98.6 F Pulse Rate 101 110 Respiratory 26 19 Rate Blood Pressure 156/80 157/100 (mmHg) O2 Sat by Pulse 94 95 Oximetry Oxygen Devices in Use Now: None Appearance: Elderly female sitting in chair in NAD Ears/Nose/Mouth/Throat: Mucous Membranes Moist Neck: NL Appearance and Movements; NL JVP, Trachea Midline Respiratory: Symmetrical Chest Expansion and Respiratory Effort, Clear to Auscultation Cardiovascular: NL Sounds; No Murmurs; No JVD Abdominal: NL Sounds; No Tenderness; No Distention Extremities: No Edema Neurological: Alert and Oriented x 3 Lines/Tubes/Other Access: Clean, Dry and Intact Peripheral IV Nutrition: Taking PO's Result Diagrams: 09/29/19 04:40 09/29/19 04:40 Assess/Plan/Problems-Billing Assessment: Ms. Rubi is an 88 yo F with PMH of DM2, CAD, HTN, asthma, hypothyroidism; who presented to the ER with falls and weakness was found to have dehydration and QAMAR and subsequently developed an upper GI bleed. - Patient Problems (1) GI bleed Code(s): K92.2 - GASTROINTESTINAL HEMORRHAGE, UNSPECIFIED Comment: - Previously having dark red stool, but no further active bleeding - Continues to c/o fatigue and mild SOB - Received 1 unit PRBC 09/27/19 - Appreciate GI consult; inital plan was for colonoscopy, but prep was not completed; EGD on 09/28/19 showing a large duodenal ulcer with black base, presumed to be the source of bleeding; recommended continuing pantoprazole drip until and then starting omeprazole 40 mg BID - Clear liquids - PRBC x1 today and recheck CBC in AM - Continue pantoprazole (2) Fall Comment: - Mechanical fall prior to admission - Suspect this was r/t dehydration from Bactrim and deconditioning - PT recommending [facility] at d/c (3) QAMAR (acute kidney injury) Code(s): N17.9 - ACUTE KIDNEY FAILURE, UNSPECIFIED Comment: - Resolved with IVF - Secondary to dehydration, possibly from Bactrim - Renal US unremarkable (4) Hyperkalemia Code(s): E87.5 - HYPERKALEMIA Comment: - Present on admission, now resolved (5) DM2 (diabetes mellitus, type 2) Comment: - A1c 9% - Continue Lantus, Lispro SS; resume metformin (6) HTN (hypertension) Code(s): I10 - ESSENTIAL (PRIMARY) HYPERTENSION Comment: - Normotensive - Resume losartan (decreased dose) (7) Asthma Code(s): J45.909 - UNSPECIFIED ASTHMA, UNCOMPLICATED Comment: - Not in acute exacerbation - Continue Spiriva; resume Singulair (8) HLD (hyperlipidemia) Code(s): E78.5 - HYPERLIPIDEMIA, UNSPECIFIED Comment: - Continue atorvasatin (9) Hypothyroid Code(s): E03.9 - HYPOTHYROIDISM, UNSPECIFIED Comment: - Continue levothyroxine (10) DVT prophylaxis Comment: - SCDs (11) DNR (do not resuscitate) Comment: Status and Disposition: Inpatient. Transfer out of ICU today. Anticipate d/c to [facility] when medically stable. Attending: Mark Palomino
[2019-09-29] MEDS: Cetirizine* 10 MG TAB PO SCH (13:32)
[2019-09-29] MEDS: metFORMIN* 500 MG TAB PO SCH (17:39)
[2019-09-29] MEDS: Montelukast Sodium TAB* 10 MG PO SCH (17:39)
[2019-09-29] MEDS: Insulin GLARGINE(*) 1 UNITS UNIT SUBCUT SCH (21:19)
[2019-09-30] MEDS: Pantoprazole* 80 mg IN NS 80 MG/250 ML BAG IV SCH ×2 (04:01→13:05)
[2019-09-30] MEDS: Levothyroxine TAB* 75 MCG TAB PO SCH (06:04)
[2019-09-30 07:07] LABS: ABS Basophils 0.1 10^3/ul (0-0.2); ABS Eosinophils 0.2 10^3/ul (0-0.6); ABS Lymphocytes 2.7 10^3/ul (1.0-4.8); ABS Monocytes 0.8 10^3/ul (0-0.8); ABS Neutrophils 5.1 10^3/ul (1.5-7.7); Eosinophil % 1.8 %; Hematocrit 24 % (35-47); Hemoglobin 8.1 g/dL (12.0-16.0); Lymphocyte % 30.8 %; Mean Corpuscular HGB Conc 34 g/dL (31-36); Mean Corpuscular Hemoglobin 27 pg (27-31); Mean Corpuscular Volume 81 fL (80-97); Nucleated Red Blood Cells % 0.1; Red Blood Count 2.96 10^6 /uL (3.70-4.87); Red Cell Distribution Width 17 % (10-15); White Blood Count 8.8 10^3/uL (3.5-10.8)
[2019-09-30 07:13] LABS: Platelet Count Platelets clumped. 10^3/uL (150-450)
[2019-09-30] MEDS: Insulin LISPRO* 1 UNITS UNIT SUBCUT SCH ×5 (08:55→22:09)
[2019-09-30] MEDS: Sertraline* 100 MG TAB PO SCH (09:08)
[2019-09-30] MEDS: SPIRIVA Respimat* (tiotropium) 2.5 mcg/inh Inhaler INH SCH (09:08)
[2019-09-30] MEDS: Losartan TAB* 25 MG PO SCH (09:08)
[2019-09-30] MEDS: Cetirizine* 10 MG TAB PO SCH (09:08)
[2019-09-30] MEDS: Atorvastatin* 40 MG TAB PO SCH (09:08)
[2019-09-30] MEDS: metFORMIN* 500 MG TAB PO SCH ×2 (09:08→17:54)
--- NOTE | 2019-09-30 14:42 | PN ---
Subjective Date of Service: 09/30/19 Interval History: Ms. Rubi is feeling better today. She would like to go home. She offers no other complaints. Good appetite. No further aspiration or coughing reported. Denies CP, SOB, N/V. Good appetite. [id number] at bedside updated on plan of care. Nursing reports another dark stool this afternoon. Family History: Unchanged from Admission Social History: Unchanged from Admission Past Medical History: Unchanged from Admission Objective Active Medications: Acetaminophen (Tylenol Tab*) 650 mg PO Q4H PRN MILD PAIN or TEMP > 100.4 Albuterol (Ventolin 2.5 Mg/3 Ml Neb.Sunshine*) 2.5 mg INH Q4H PRN SOB/WHEEZING Atorvastatin Calcium (Lipitor*) 40 mg PO DAILY [facility] Cetirizine HCl (Zyrtec*) 10 mg PO DAILY [facility]; Protocol Pantoprazole Sodium (Protonix Iv Bag*) 80 mg in 250 mls @ 25 mls/hr IV Q10H [facility] Insulin Glargine (Lantus(*)) 20 units SUBCUT Q24H [facility] Insulin Human Lispro (Humalog*) 0 units SUBCUT ACHS [facility]; Protocol Levothyroxine Sodium (Synthroid Tab*) 75 mcg PO DAILY@0600 [facility] Losartan Potassium (Cozaar Tab*) 50 mg PO DAILY [facility] Metformin HCl (Glucophage*) 1,000 mg PO 0800,1700 [facility] Montelukast Sodium (Singulair Tab*) 10 mg PO QPM [facility] Pantoprazole Sodium (Protonix Tab*) 40 mg PO BID [facility] Sertraline HCl (Zoloft*) 100 mg PO DAILY [facility] Tiotropium [place] (Spiriva Respimat 2.5 Mcg) 2 puff INH DAILY [facility] Vital Signs - 8 hr 09/30/19 09/30/19 08:00 11:11 Temperature 97.8 F Pulse Rate 108 Respiratory 18 18 Rate Blood Pressure 123/67 (mmHg) O2 Sat by Pulse 97 Oximetry Oxygen Devices in Use Now: None Appearance: Elderly female lying in bed in NAD Ears/Nose/Mouth/Throat: Mucous Membranes Moist Neck: NL Appearance and Movements; NL JVP, Trachea Midline Respiratory: Symmetrical Chest Expansion and Respiratory Effort, Clear to Auscultation Cardiovascular: NL Sounds; No Murmurs; No JVD Abdominal: NL Sounds; No Tenderness; No Distention Extremities: No Edema Neurological: Alert and Oriented x 3 Lines/Tubes/Other Access: Clean, Dry and Intact Peripheral IV Nutrition: Taking PO's Result Diagrams: 09/30/19 04:59 09/29/19 04:40 Assess/Plan/Problems-Billing Assessment: Ms. Rubi is an 88 yo F with PMH of DM2, CAD, HTN, asthma, hypothyroidism; who presented to the ER with falls and weakness was found to have dehydration and QAMAR and subsequently developed an upper GI bleed. - Patient Problems (1) GI bleed Code(s): K92.2 - GASTROINTESTINAL HEMORRHAGE, UNSPECIFIED Comment: - Previously having dark red stool, but no further active bleeding - Fatigue and SOB resolved with transfusions - Received 2 unit PRBC (09/27/19, 09/29/19) - Appreciate GI consult; inital plan was for colonoscopy, but prep was not completed; EGD on 09/28/19 showing a large duodenal ulcer with black base, presumed to be the source of bleeding; recommended continuing pantoprazole drip until and then starting omeprazole 40 mg BID - Tolerating regular diet - Change from IV pantoprazole to PO this evening (2) Fall Comment: - Mechanical fall prior to admission - Suspect this was r/t dehydration from Bactrim and deconditioning - PT recommending [facility] at d/c (3) QAMAR (acute kidney injury) Code(s): N17.9 - ACUTE KIDNEY FAILURE, UNSPECIFIED Comment: - Resolved with IVF - Secondary to dehydration, possibly from Bactrim - Renal US unremarkable (4) Hyperkalemia Code(s): E87.5 - HYPERKALEMIA Comment: - Present on admission, now resolved (5) DM2 (diabetes mellitus, type 2) Comment: - A1c 9% - Continue Lantus, Lispro SS; resume metformin (6) HTN (hypertension) Code(s): I10 - ESSENTIAL (PRIMARY) HYPERTENSION Comment: - Normotensive - Resume losartan (decreased dose) (7) Asthma Code(s): J45.909 - UNSPECIFIED ASTHMA, UNCOMPLICATED Comment: - Not in acute exacerbation - Continue Spiriva; resume Singulair (8) HLD (hyperlipidemia) Code(s): E78.5 - HYPERLIPIDEMIA, UNSPECIFIED Comment: - Continue atorvasatin (9) Hypothyroid Code(s): E03.9 - HYPOTHYROIDISM, UNSPECIFIED Comment: - Continue levothyroxine (10) DVT prophylaxis Comment: - SCDs (11) DNR (do not resuscitate) Comment: Status and Disposition: Inpatient. Anticipate d/c to [facility] when medically stable, likely 1-2 days. Attending: Mark Palomino
[2019-09-30] MEDS: Montelukast Sodium TAB* 10 MG PO SCH (17:54)
[2019-09-30] MEDS: Albuterol 2.5 MG/3 ML NEB.SOL* (0.083%) INH PRN (18:16)
[2019-09-30] MEDS: Insulin GLARGINE(*) 1 UNITS UNIT SUBCUT SCH (22:09)
[2019-09-30] MEDS: Pantoprazole TAB * 40 MG TAB PO SCH (22:09)
[2019-09-30] MEDS: Miconazole TOPICAL CREAM 2%* 30 GM TOPICAL SCH (22:11)
[2019-10-01] MEDS: Levothyroxine TAB* 75 MCG TAB PO SCH (05:16)
[2019-10-01] MEDS: Insulin LISPRO* 1 UNITS UNIT SUBCUT SCH ×4 (07:29→20:51)
[2019-10-01 07:39] LABS: ABS Basophils 0.1 10^3/ul (0-0.2); ABS Eosinophils 0.1 10^3/ul (0-0.6); ABS Lymphocytes 2.1 10^3/ul (1.0-4.8); ABS Monocytes 0.7 10^3/ul (0-0.8); ABS Neutrophils 5.5 10^3/ul (1.5-7.7); Eosinophil % 1.2 %; Hematocrit 22 % (35-47); Hemoglobin 7.4 g/dL (12.0-16.0); Lymphocyte % 24.7 %; Mean Corpuscular HGB Conc 34 g/dL (31-36); Mean Corpuscular Hemoglobin 28 pg (27-31); Mean Corpuscular Volume 82 fL (80-97); Nucleated Red Blood Cells % 0.1; Red Blood Count 2.67 10^6 /uL (3.70-4.87); Red Cell Distribution Width 17 % (10-15); White Blood Count 8.5 10^3/uL (3.5-10.8)
[2019-10-01] MEDS: SPIRIVA Respimat* (tiotropium) 2.5 mcg/inh Inhaler INH SCH (08:09)
[2019-10-01] MEDS: Atorvastatin* 40 MG TAB PO SCH (08:23)
[2019-10-01] MEDS: Losartan TAB* 25 MG PO SCH (08:23)
[2019-10-01] MEDS: Sertraline* 100 MG TAB PO SCH (08:23)
[2019-10-01] MEDS: Pantoprazole TAB * 40 MG TAB PO SCH ×2 (08:23→20:51)
[2019-10-01] MEDS: metFORMIN* 500 MG TAB PO SCH ×2 (08:23→17:36)
[2019-10-01] MEDS: Cetirizine* 10 MG TAB PO SCH (08:23)
[2019-10-01] MEDS: Miconazole TOPICAL CREAM 2%* 30 GM TOPICAL SCH ×2 (08:31→20:52)
--- NOTE | 2019-10-01 11:14 | PN ---
Subjective Date of Service: 10/01/19 Interval History: Ms. Rubi is feeling tired today, but overall well. She feels a little better than yesterday. Slightly SOB with exertion. Good appetite. Reported vaginal itching to her nurse last night, but states that today the itching has resolved. Denies CP, N/V. Nursing reports SOB on exertion, but saturating well on RA. Family History: Unchanged from Admission Social History: Unchanged from Admission Past Medical History: Unchanged from Admission Objective Active Medications: Acetaminophen (Tylenol Tab*) 650 mg PO Q4H PRN MILD PAIN or TEMP > 100.4 Albuterol (Ventolin 2.5 Mg/3 Ml Neb.Sunshine*) 2.5 mg INH Q4H PRN SOB/WHEEZING Atorvastatin Calcium (Lipitor*) 40 mg PO DAILY [facility] Cetirizine HCl (Zyrtec*) 10 mg PO DAILY [facility]; Protocol Insulin Glargine (Lantus(*)) 20 units SUBCUT Q24H [facility] Insulin Human Lispro (Humalog*) 0 units SUBCUT ACHS [facility]; Protocol Levothyroxine Sodium (Synthroid Tab*) 75 mcg PO DAILY@0600 [facility] Losartan Potassium (Cozaar Tab*) 50 mg PO DAILY [facility] Metformin HCl (Glucophage*) 1,000 mg PO 0800,1700 [facility] Miconazole Nitrate (Monistat 2%*) 1 applic TOPICAL BID [facility] Montelukast Sodium (Singulair Tab*) 10 mg PO QPM [facility] Pantoprazole Sodium (Protonix Tab*) 40 mg PO BID [facility] Sertraline HCl (Zoloft*) 100 mg PO DAILY [facility] Tiotropium [place] (Spiriva Respimat 2.5 Mcg) 2 puff INH DAILY [facility] Vital Signs - 8 hr 10/01/19 10/01/19 07:24 08:10 Temperature 98.6 F Pulse Rate 102 100 Respiratory 20 16 Rate Blood Pressure 139/70 (mmHg) O2 Sat by Pulse 97 97 Oximetry Oxygen Devices in Use Now: None Appearance: Elderly female sitting in chair in NAD Ears/Nose/Mouth/Throat: Mucous Membranes Moist Neck: NL Appearance and Movements; NL JVP, Trachea Midline Respiratory: Symmetrical Chest Expansion and Respiratory Effort, Clear to Auscultation Cardiovascular: NL Sounds; No Murmurs; No JVD Abdominal: NL Sounds; No Tenderness; No Distention Extremities: No Edema Neurological: Alert and Oriented x 3 Lines/Tubes/Other Access: Clean, Dry and Intact Peripheral IV Nutrition: Taking PO's Result Diagrams: 10/01/19 06:52 09/29/19 04:40 Assess/Plan/Problems-Billing Assessment: Ms. Rubi is an 88 yo F with PMH of DM2, CAD, HTN, asthma, hypothyroidism; who presented to the ER with falls and weakness was found to have dehydration and QAMAR and subsequently developed an upper GI bleed. - Patient Problems (1) GI bleed Code(s): K92.2 - GASTROINTESTINAL HEMORRHAGE, UNSPECIFIED Comment: - Continues to have dark stool, but no génesis blood - Fatigue and SOB mostly resolved with transfusions - Received 2 unit PRBC (09/27/19, 09/29/19) - Appreciate GI consult; inital plan was for colonoscopy, but prep was not completed; EGD on 09/28/19 showing a large duodenal ulcer with black base, presumed to be the source of bleeding; recommended BID PPI - Tolerating regular diet - Continue pantoprazole (2) Fall Comment: - Mechanical fall prior to admission - Suspect this was r/t dehydration from Bactrim and deconditioning - PT recommending [facility] at d/c (3) QAMAR (acute kidney injury) Code(s): N17.9 - ACUTE KIDNEY FAILURE, UNSPECIFIED Comment: - Resolved with IVF - Secondary to dehydration, possibly from Bactrim - Renal US unremarkable (4) Hyperkalemia Code(s): E87.5 - HYPERKALEMIA Comment: - Present on admission, now resolved (5) DM2 (diabetes mellitus, type 2) Comment: - A1c 9% - Continue Lantus, Lispro SS, metformin (6) HTN (hypertension) Code(s): I10 - ESSENTIAL (PRIMARY) HYPERTENSION Comment: - Normotensive - Resume losartan (decreased dose) (7) Asthma Code(s): J45.909 - UNSPECIFIED ASTHMA, UNCOMPLICATED Comment: - Not in acute exacerbation - Continue Spiriva, Singulair (8) HLD (hyperlipidemia) Code(s): E78.5 - HYPERLIPIDEMIA, UNSPECIFIED Comment: - Continue atorvasatin (9) Hypothyroid Code(s): E03.9 - HYPOTHYROIDISM, UNSPECIFIED Comment: - Continue levothyroxine (10) DVT prophylaxis Comment: - SCDs (11) DNR (do not resuscitate) Comment: Status and Disposition: Inpatient. Anticipate d/c to [facility] when medically stable and [facility] bed available, hopefully early next week. Attending: Mark Palomino
[2019-10-01] MEDS: Montelukast Sodium TAB* 10 MG PO SCH (17:37)
[2019-10-01] MEDS: Insulin GLARGINE(*) 1 UNITS UNIT SUBCUT SCH (20:50)
[2019-10-01 20:59] LABS: Urine Appearance Cloudy; Urine Bilirubin Negative (Negative); Urine Blood Negative (Negative); Urine Color Yellow; Urine Glucose Negative (Negative); Urine Ketones Negative (Negative); Urine Nitrite Negative (Negative); Urine Protein Negative (Negative); Urine Specific Gravity 1.016 (1.010-1.030); Urine Urobilinogen Negative (Negative)
[2019-10-01 21:01] LABS: Urine Bacteria 1+ (Absent); Urine Red Blood Cell Absent (Absent); Urine White Blood Cell 2+(11-20/hpf) (Absent)
[2019-10-02] MEDS: Levothyroxine TAB* 75 MCG TAB PO SCH (06:16)
[2019-10-02] MEDS: SPIRIVA Respimat* (tiotropium) 2.5 mcg/inh Inhaler INH SCH (07:19)
[2019-10-02 07:39] LABS: Hematocrit 21 % (35-47); Hemoglobin 7.1 g/dL (12.0-16.0); Mean Corpuscular HGB Conc 34 g/dL (31-36); Mean Corpuscular Hemoglobin 28 pg (27-31); Mean Corpuscular Volume 82 fL (80-97); Red Blood Count 2.58 10^6 /uL (3.70-4.87); Red Cell Distribution Width 17 % (10-15); White Blood Count 6.8 10^3/uL (3.5-10.8)
[2019-10-02] MEDS: Insulin LISPRO* 1 UNITS UNIT SUBCUT SCH ×4 (08:28→20:56)
[2019-10-02] MEDS: Losartan TAB* 25 MG PO SCH (08:44)
[2019-10-02] MEDS: Cetirizine* 10 MG TAB PO SCH (08:44)
[2019-10-02] MEDS: Pantoprazole TAB * 40 MG TAB PO SCH (08:44)
[2019-10-02] MEDS: Sertraline* 100 MG TAB PO SCH (08:44)
[2019-10-02] MEDS: Miconazole TOPICAL CREAM 2%* 30 GM TOPICAL SCH (08:44)
[2019-10-02] MEDS: Atorvastatin* 40 MG TAB PO SCH (08:44)
[2019-10-02] MEDS: metFORMIN* 500 MG TAB PO SCH ×2 (08:44→16:05)
[2019-10-02 09:14] LABS: ABS Basophils 0.1 10^3/ul (0-0.2); ABS Eosinophils 0.1 10^3/ul (0-0.6); ABS Lymphocytes 1.9 10^3/ul (1.0-4.8); ABS Monocytes 0.5 10^3/ul (0-0.8); ABS Neutrophils 4.3 10^3/ul (1.5-7.7); Eosinophil % 0.9 %; Lymphocyte % 27.5 %; Platelet Count Platelets clumped. 10^3/uL (150-450)
[2019-10-02] MEDS: Pantoprazole IV* 40 MG IV SCH (12:09)
--- NOTE | 2019-10-02 13:34 | PN ---
Progress Note - Progress Note Date of Service: 10/02/19 Note: GASTROENTEROLOGY FOLLOW-UP IE/S: - EGD on 09/28 w/ large deep duodenal ulcer w/ pigmented spot. - Received transfusion on 09/29. Slow downtrend from 8.1 to 7.1 over past 2 days. Receiving unit of blood today. - Small amounts of melena ~twice daily, which is unchanged over past few days. - No complaints. O: VSS. Frail appearing elderly woman. Resting comfortably RRR Abd soft NT/ND Labs reviewed. Slow drifting of H/H. Currently 7.1. A/P: 88yF admitted w/ falls and GIB. EGD demonstrated large deeply pitted duodenal ulcer w/ pigmented spot. No endotherapy given absence of active bleeding. Now with slowly drifting H/H over past few days. No clinical instability. Favor mild oozing likely from ulcer. Would favor supportive care for now (w/ intensification of PPI therapy) and consider relook EGD if significant change. - Monitor CBC every 12 hours - Soft diet for now. - Switch from po to IV PPI BID - Monitor for now. If evidence of acute clinical change (increase in melena, hemodynamic instability, rapid drop in H/H), then I would plan for repeat EGD. Patient is higher risk for procedure/mod sed given advanced age and frailty. Ulcer is quite large and pitted, so there is also a higher risk of complication (ie: perforation) w/ biCAP treatment of ulcer base. Would defer this intervention for more significant clinical change. Please notify GI if acute clinical change. Blossom Jaquez MD
--- NOTE | 2019-10-02 15:36 | PN ---
Subjective Date of Service: 10/02/19 Interval History: Ms. Rubi is feeling fine today. She feels tired, but offers no other complaints. When questioned specifically, she does admit to feeling slightly SOB. Denies abdominal pain, CP, N/V. Good appetite. No concerns from nursing. Family History: Unchanged from Admission Social History: Unchanged from Admission Past Medical History: Unchanged from Admission Objective Active Medications: Acetaminophen (Tylenol Tab*) 650 mg PO Q4H PRN MILD PAIN or TEMP > 100.4 Albuterol (Ventolin 2.5 Mg/3 Ml Neb.Sunshine*) 2.5 mg INH Q4H PRN SOB/WHEEZING Atorvastatin Calcium (Lipitor*) 40 mg PO DAILY [facility] Cetirizine HCl (Zyrtec*) 10 mg PO DAILY [facility]; Protocol Insulin Glargine (Lantus(*)) 20 units SUBCUT Q24H [facility] Insulin Human Lispro (Humalog*) 0 units SUBCUT ACHS [facility]; Protocol Levothyroxine Sodium (Synthroid Tab*) 75 mcg PO DAILY@0600 [facility] Losartan Potassium (Cozaar Tab*) 50 mg PO DAILY [facility] Metformin HCl (Glucophage*) 1,000 mg PO 0800,1700 [facility] Miconazole Nitrate (Monistat 2%*) 1 applic TOPICAL BID [facility] Montelukast Sodium (Singulair Tab*) 10 mg PO QPM [facility] Pantoprazole Sodium (Protonix Iv*) 40 mg IV Q12H [facility] Sertraline HCl (Zoloft*) 100 mg PO DAILY [facility] Tiotropium [place] (Spiriva Respimat 2.5 Mcg) 2 puff INH DAILY [facility] Vital Signs - 8 hr 10/02/19 10/02/19 10/02/19 08:00 09:36 11:29 Temperature 97.9 F 98.5 F Pulse Rate 90 84 Respiratory 18 18 18 Rate Blood Pressure 142/66 129/70 (mmHg) O2 Sat by Pulse 97 97 Oximetry Oxygen Devices in Use Now: None Appearance: Elderly female lying in bed in NAD Ears/Nose/Mouth/Throat: Mucous Membranes Moist Neck: NL Appearance and Movements; NL JVP, Trachea Midline Respiratory: Symmetrical Chest Expansion and Respiratory Effort, Clear to Auscultation Cardiovascular: NL Sounds; No Murmurs; No JVD, RRR Abdominal: NL Sounds; No Tenderness; No Distention Extremities: No Edema Neurological: Alert and Oriented x 3 Lines/Tubes/Other Access: Clean, Dry and Intact Peripheral IV Nutrition: Taking PO's Result Diagrams: 10/02/19 06:57 09/29/19 04:40 Assess/Plan/Problems-Billing Assessment: Ms. Rubi is an 88 yo F with PMH of DM2, CAD, HTN, asthma, hypothyroidism; who presented to the ER with falls and weakness was found to have dehydration and AQMAR and subsequently developed an upper GI bleed. - Patient Problems (1) GI bleed Code(s): K92.2 - GASTROINTESTINAL HEMORRHAGE, UNSPECIFIED Comment: - Continues to have dark stool, but no génesis blood - Fatigue and SOB mostly resolved with transfusions - Received 2 unit PRBC (09/27/19, 09/29/19) - Appreciate GI consult; inital plan was for colonoscopy, but prep was not completed; EGD on 09/28/19 showing a large duodenal ulcer with black base, presumed to be the source of bleeding; spoke with Gisele again today d/t H& H trending down and she recommends switching back to IV PPI, q12h H&H, soft diet - [place] to soft diet per GI - Transfuse PRBC x1 again today - Check H&H q12h and will continue to transfuse as needed - Change pantoprazole from PO to IV (2) Fall Comment: - Mechanical fall prior to admission - Suspect this was r/t dehydration from Bactrim and deconditioning - PT recommending [facility] at d/c (3) QAMAR (acute kidney injury) Code(s): N17.9 - ACUTE KIDNEY FAILURE, UNSPECIFIED Comment: - Resolved with IVF - Secondary to dehydration, possibly from Bactrim - Renal US unremarkable (4) Hyperkalemia Code(s): E87.5 - HYPERKALEMIA Comment: - Present on admission, now resolved (5) DM2 (diabetes mellitus, type 2) Comment: - A1c 9% - Continue Lantus, Lispro SS, metformin (6) HTN (hypertension) Code(s): I10 - ESSENTIAL (PRIMARY) HYPERTENSION Comment: - Normotensive - Resume losartan (decreased dose) (7) Asthma Code(s): J45.909 - UNSPECIFIED ASTHMA, UNCOMPLICATED Comment: - Not in acute exacerbation - Continue Spiriva, Singulair (8) HLD (hyperlipidemia) Code(s): E78.5 - HYPERLIPIDEMIA, UNSPECIFIED Comment: - Continue atorvasatin (9) Hypothyroid Code(s): E03.9 - HYPOTHYROIDISM, UNSPECIFIED Comment: - Continue levothyroxine (10) DVT prophylaxis Comment: - SCDs only in the setting of GI bleed (11) DNR (do not resuscitate) Comment: Status and Disposition: Inpatient. Anticipate d/c to [facility] when medically stable, timeframe to be determined by clinical course. Attending: Mark Palomino
[2019-10-02] MEDS: Acetaminophen TAB* 325 MG PO PRN ×2 (16:05→22:26)
[2019-10-02] MEDS: Montelukast Sodium TAB* 10 MG PO SCH (16:06)
[2019-10-02 18:21] LABS: Hematocrit 25 % (35-47); Hemoglobin 8.2 g/dL (12.0-16.0)
[2019-10-02] MEDS: Insulin GLARGINE(*) 1 UNITS UNIT SUBCUT SCH (20:58)
[2019-10-03] MEDS: Pantoprazole IV* 40 MG IV SCH ×2 (00:22→12:47)
[2019-10-03] MEDS: Levothyroxine TAB* 75 MCG TAB PO SCH (06:15)
[2019-10-03] MEDS: SPIRIVA Respimat* (tiotropium) 2.5 mcg/inh Inhaler INH SCH (07:27)
[2019-10-03 07:51] LABS: Hematocrit 25 % (35-47); Hemoglobin 8.3 g/dL (12.0-16.0)
[2019-10-03] MEDS: Cetirizine* 10 MG TAB PO SCH (08:06)
[2019-10-03] MEDS: Atorvastatin* 40 MG TAB PO SCH (08:06)
[2019-10-03] MEDS: Losartan TAB* 25 MG PO SCH (08:07)
[2019-10-03] MEDS: Insulin LISPRO* 1 UNITS UNIT SUBCUT SCH ×4 (08:07→21:28)
[2019-10-03] MEDS: Sertraline* 100 MG TAB PO SCH (08:07)
[2019-10-03] MEDS: metFORMIN* 500 MG TAB PO SCH ×2 (10:42→17:58)
[2019-10-03] MEDS ORDERED: Fluconazole 150 MG TAB PO ONE (12:00)
--- NOTE | 2019-10-03 12:07 | PN ---
Subjective Date of Service: 10/03/19 Interval History: Ms. Rubi is feeling well today. She is tired, but not overly tired. Denies SOB or CP. Vaginal itching that she had previously resolved yesterday, but then returned once off topical miconazole. No concerns from nursing. Family History: Unchanged from Admission Social History: Unchanged from Admission Past Medical History: Unchanged from Admission Objective Active Medications: Acetaminophen (Tylenol Tab*) 650 mg PO Q4H PRN MILD PAIN or TEMP > 100.4 Albuterol (Ventolin 2.5 Mg/3 Ml Neb.Sunshine*) 2.5 mg INH Q4H PRN SOB/WHEEZING Atorvastatin Calcium (Lipitor*) 40 mg PO DAILY [facility] Cetirizine HCl (Zyrtec*) 10 mg PO DAILY [facility]; Protocol Insulin Glargine (Lantus(*)) 10 units SUBCUT BEDTIME [facility] Insulin Human Lispro (Humalog*) 0 units SUBCUT ACHS [facility]; Protocol Levothyroxine Sodium (Synthroid Tab*) 75 mcg PO DAILY@0600 [facility] Losartan Potassium (Cozaar Tab*) 50 mg PO DAILY [facility] Metformin HCl (Glucophage*) 1,000 mg PO 0800,1700 [facility] Miconazole Nitrate (Monistat 2%*) 1 applic TOPICAL BID [facility] Montelukast Sodium (Singulair Tab*) 10 mg PO QPM [facility] Pantoprazole Sodium (Protonix Iv*) 40 mg IV Q12H [facility] Sertraline HCl (Zoloft*) 100 mg PO DAILY [facility] Tiotropium [place] (Spiriva Respimat 2.5 Mcg) 2 puff INH DAILY [facility] Vital Signs - 8 hr 10/03/19 10/03/19 10/03/19 07:29 08:10 10:18 Temperature 97.0 F Pulse Rate 82 87 Respiratory 16 23 Rate Blood Pressure 167/69 145/72 (mmHg) O2 Sat by Pulse 96 97 Oximetry Oxygen Devices in Use Now: None Appearance: Elderly female lying in bed in NAD Ears/Nose/Mouth/Throat: Mucous Membranes Moist Neck: NL Appearance and Movements; NL JVP, Trachea Midline Respiratory: Symmetrical Chest Expansion and Respiratory Effort, Clear to Auscultation Cardiovascular: NL Sounds; No Murmurs; No JVD, RRR Abdominal: NL Sounds; No Tenderness; No Distention Extremities: No Edema Neurological: Alert and Oriented x 3 Lines/Tubes/Other Access: Clean, Dry and Intact Peripheral IV Nutrition: Taking PO's Result Diagrams: 10/03/19 07:45 09/29/19 04:40 Assess/Plan/Problems-Billing Assessment: Ms. Rubi is an 88 yo F with PMH of DM2, CAD, HTN, asthma, hypothyroidism; who presented to the ER with falls and weakness was found to have dehydration and QAMAR and subsequently developed an upper GI bleed. - Patient Problems (1) GI bleed Code(s): K92.2 - GASTROINTESTINAL HEMORRHAGE, UNSPECIFIED Comment: - Continues to have dark stool, but no génesis blood - Fatigue and SOB mostly resolved with transfusions - Received 3 unit PRBC (09/27/19, 09/29/19, 10/02/19) - Appreciate GI consult; inital plan was for colonoscopy, but prep was not completed; EGD on 09/28/19 showing a large duodenal ulcer with black base, presumed to be the source of bleeding; spoke with Foor-Pessin again today d/t H& H trending down and she recommends switching back to IV PPI, q12h H&H, soft diet - Soft diet per GI - Check H&H q12h and will continue to transfuse as needed - Continue IV pantoprazole (2) Vaginal sonia Code(s): B37.3 - CANDIDIASIS OF VULVA AND VAGINA Comment: - External itching, but no significant discharge - Supported by urine culture growing sonia (will not treat as UTI d/t low colony count and no UTI symptoms) - Resume topical miconazole; give fluconazole x1 today (3) Fall Comment: - Mechanical fall prior to admission - Suspect this was r/t dehydration from Bactrim and deconditioning - PT recommending [facility] at d/c (4) QAMAR (acute kidney injury) Code(s): N17.9 - ACUTE KIDNEY FAILURE, UNSPECIFIED Comment: - Resolved with IVF - Secondary to dehydration, possibly from Bactrim - Renal US unremarkable (5) Hyperkalemia Code(s): E87.5 - HYPERKALEMIA Comment: - Present on admission, now resolved (6) DM2 (diabetes mellitus, type 2) Comment: - A1c 9% - Continue Lantus, Lispro SS, metformin (7) HTN (hypertension) Code(s): I10 - ESSENTIAL (PRIMARY) HYPERTENSION Comment: - Slightly hypertensive - Continue losartan (decreased dose) (8) Asthma Code(s): J45.909 - UNSPECIFIED ASTHMA, UNCOMPLICATED Comment: - Not in acute exacerbation - Continue Spiriva, Singulair (9) HLD (hyperlipidemia) Code(s): E78.5 - HYPERLIPIDEMIA, UNSPECIFIED Comment: - Continue atorvasatin (10) Hypothyroid Code(s): E03.9 - HYPOTHYROIDISM, UNSPECIFIED Comment: - Continue levothyroxine (11) DVT prophylaxis Comment: - SCDs only in the setting of GI bleed (12) DNR (do not resuscitate) Comment: Status and Disposition: Inpatient. Anticipate d/c to [facility] when medically stable, timeframe to be determined by clinical course. Attending: Mark Palomino
[2019-10-03] MEDS: Montelukast Sodium TAB* 10 MG PO SCH (17:59)
[2019-10-03 19:00] LABS: Hematocrit 25 % (35-47); Hemoglobin 8.5 g/dL (12.0-16.0)
[2019-10-03] MEDS ORDERED: Insulin GLARGINE(*) 1 UNITS UNIT SUBCUT SCH (21:00)
[2019-10-03] MEDS: Miconazole TOPICAL CREAM 2%* 30 GM TOPICAL SCH (21:30)
[2019-10-04] MEDS: Pantoprazole IV* 40 MG IV SCH ×2 (00:25→12:33)
[2019-10-04 04:52] LABS: Hematocrit 24 % (35-47); Mean Corpuscular HGB Conc 33 g/dL (31-36); Mean Corpuscular Hemoglobin 28 pg (27-31); Mean Corpuscular Volume 84 fL (80-97); Red Blood Count 2.89 10^6 /uL (3.70-4.87); Red Cell Distribution Width 17 % (10-15); White Blood Count 8.7 10^3/uL (3.5-10.8)
[2019-10-04 04:53] LABS: ABS Lymphocytes 1.6 10^3/ul (1.0-4.8); ABS Monocytes 0.4 10^3/ul (0-0.8); ABS Neutrophils 6.6 10^3/ul (1.5-7.7); Eosinophil % 0.3 %; Lymphocyte % 18.8 %
[2019-10-04 05:04] LABS: Calcium 8.3 mg/dL (8.6-10.3); Potassium 3.7 mmol/L (3.5-5.0)
[2019-10-04 05:10] LABS: BUN/Creatinine Ratio 23.7 (8-20); EGFR African American 86.7 (>60); EGFR Non-African American 71.7 (>60); Platelet Count Platelets clumped. 10^3/uL (150-450)
[2019-10-04] MEDS: Levothyroxine TAB* 75 MCG TAB PO SCH (05:42)
[2019-10-04] MEDS: Insulin LISPRO* 1 UNITS UNIT SUBCUT SCH ×2 (07:46→12:39)
[2019-10-04] MEDS: SPIRIVA Respimat* (tiotropium) 2.5 mcg/inh Inhaler INH SCH (08:25)
[2019-10-04] MEDS: Acetaminophen TAB* 325 MG PO PRN ×2 (09:25→16:51)
[2019-10-04] MEDS: Sertraline* 100 MG TAB PO SCH (09:26)
[2019-10-04] MEDS: metFORMIN* 500 MG TAB PO SCH ×2 (09:26→16:29)
[2019-10-04] MEDS: Losartan TAB* 25 MG PO SCH (09:26)
[2019-10-04] MEDS: Atorvastatin* 40 MG TAB PO SCH (09:26)
[2019-10-04] MEDS: Cetirizine* 10 MG TAB PO SCH (09:26)
[2019-10-04] MEDS: Miconazole TOPICAL CREAM 2%* 30 GM TOPICAL SCH ×2 (09:28→20:52)
[2019-10-04] MEDS ORDERED: Dextrose 50% Syringe 50 ML* 25 GM/50 ML SYRINGE IV PUSH PRN (12:11)
[2019-10-04] MEDS: Montelukast Sodium TAB* 10 MG PO SCH (16:29)
--- NOTE | 2019-10-04 16:31 | PN ---
Subjective Date of Service: 10/04/19 Interval History: Ms. Rubi is not feeling well today. She is very tired and does not have much energy. She thinks she slept well overnight. She has not felt any symptoms from hypoglycemia. Denies CP or SOB. Nursing reports recurrent hypoglycemia during the day. Family History: Unchanged from Admission Social History: Unchanged from Admission Past Medical History: Unchanged from Admission Objective Active Medications: Acetaminophen (Tylenol Tab*) 650 mg PO Q4H PRN MILD PAIN or TEMP > 100.4 Albuterol (Ventolin 2.5 Mg/3 Ml Neb.Sunshine*) 2.5 mg INH Q4H PRN SOB/WHEEZING Atorvastatin Calcium (Lipitor*) 40 mg PO DAILY [facility] Cetirizine HCl (Zyrtec*) 10 mg PO DAILY [facility]; Protocol Dextrose (D50w Syringe 50 Ml*) 25 gm IV PUSH .FOR FS < 60 - SS PRN FS < 60 Levothyroxine Sodium (Synthroid Tab*) 75 mcg PO DAILY@0600 [facility] Losartan Potassium (Cozaar Tab*) 75 mg PO DAILY [facility] Metformin HCl (Glucophage*) 1,000 mg PO 0800,1700 [facility] Miconazole Nitrate (Monistat 2%*) 1 applic TOPICAL BID [facility] Montelukast Sodium (Singulair Tab*) 10 mg PO QPM [facility] Pantoprazole Sodium (Protonix Iv*) 40 mg IV Q12H [facility] Sertraline HCl (Zoloft*) 100 mg PO DAILY [facility] Tiotropium [place] (Spiriva Respimat 2.5 Mcg) 2 puff INH DAILY [facility] Oxygen Devices in Use Now: None Appearance: Elderly female lying in bed in NAD Ears/Nose/Mouth/Throat: Mucous Membranes Moist Neck: NL Appearance and Movements; NL JVP, Trachea Midline Respiratory: Symmetrical Chest Expansion and Respiratory Effort, Clear to Auscultation Cardiovascular: NL Sounds; No Murmurs; No JVD, RRR Abdominal: NL Sounds; No Tenderness; No Distention Extremities: No Edema Neurological: Alert and Oriented x 3 Lines/Tubes/Other Access: Clean, Dry and Intact Peripheral IV Nutrition: Taking PO's Result Diagrams: 10/04/19 04:30 10/04/19 04:30 Assess/Plan/Problems-Billing Assessment: Ms. Rubi is an 88 yo F with PMH of DM2, CAD, HTN, asthma, hypothyroidism; who presented to the ER with falls and weakness was found to have dehydration and QAMAR and subsequently developed an upper GI bleed. - Patient Problems (1) GI bleed Code(s): K92.2 - GASTROINTESTINAL HEMORRHAGE, UNSPECIFIED Comment: - Fatigue and SOB mostly resolved with transfusions - Received 3 unit PRBC (09/27/19, 09/29/19, 10/02/19) - Appreciate GI consult; inital plan was for colonoscopy, but prep was not completed; EGD on 09/28/19 showing a large duodenal ulcer with black base, presumed to be the source of bleeding - Soft diet per GI - Continue IV pantoprazole (2) Vaginal sonia Code(s): B37.3 - CANDIDIASIS OF VULVA AND VAGINA Comment: - Resolved (3) Fall Comment: - Mechanical fall prior to admission - Suspect this was r/t dehydration from Bactrim and deconditioning - PT recommending [facility] at d/c (4) QAMAR (acute kidney injury) Code(s): N17.9 - ACUTE KIDNEY FAILURE, UNSPECIFIED Comment: - Resolved with IVF - Secondary to dehydration, possibly from Bactrim - Renal US unremarkable (5) Hyperkalemia Code(s): E87.5 - HYPERKALEMIA Comment: - Present on admission, now resolved (6) DM2 (diabetes mellitus, type 2) Comment: - Hypoglycemic this morning - A1c 9% - Continue metformin; d/c Lantus and Lispro (7) HTN (hypertension) Code(s): I10 - ESSENTIAL (PRIMARY) HYPERTENSION Comment: - Normotensive - Continue losartan (decreased dose) (8) Asthma Code(s): J45.909 - UNSPECIFIED ASTHMA, UNCOMPLICATED Comment: - Not in acute exacerbation - Continue Spiriva, Singulair (9) HLD (hyperlipidemia) Code(s): E78.5 - HYPERLIPIDEMIA, UNSPECIFIED Comment: - Continue atorvasatin (10) Hypothyroid Code(s): E03.9 - HYPOTHYROIDISM, UNSPECIFIED Comment: - Continue levothyroxine (11) DVT prophylaxis Comment: - SCDs only in the setting of GI bleed (12) DNR (do not resuscitate) Comment: Status and Disposition: Inpatient. Anticipate d/c to [facility] when medically stable, timeframe to be determined by clinical course. Attending: Ashu Cotton
--- NOTE | 2019-10-04 16:51 | PN ---
Progress Note - Progress Note Date of Service: 10/04/19 Note: pt seen earlier today; main complaint is fatigue; pt unsure if any blood in stool; no abd pain VS; 97.2, 134/66 nad +bs, soft Hgb 8.3---->8.5---->8 Duod ulcer, slow tend down of Hgb; pt restarted on IV PPI; no s/s active bleeding, ??ooze continue to monitor, IV ppi; if trend continues down, will need relook EGD Grayson Edouard MD
[2019-10-04 17:58] LABS: Hematocrit 26 % (35-47); Hemoglobin 8.4 g/dL (12.0-16.0)
[2019-10-05] MEDS: Pantoprazole IV* 40 MG IV SCH (00:36)
[2019-10-05] MEDS: Levothyroxine TAB* 75 MCG TAB PO SCH (05:42)
[2019-10-05 05:51] LABS: BUN/Creatinine Ratio 22.6 (8-20); Calcium 8.3 mg/dL (8.6-10.3); EGFR African American 68.7 (>60); EGFR Non-African American 56.8 (>60); Potassium 3.8 mmol/L (3.5-5.0)
[2019-10-05 06:11] LABS: Hematocrit 26 % (35-47); Hemoglobin 8.4 g/dL (12.0-16.0); Mean Corpuscular HGB Conc 32 g/dL (31-36); Mean Corpuscular Hemoglobin 27 pg (27-31); Mean Corpuscular Volume 85 fL (80-97); Red Blood Count 3.08 10^6 /uL (3.70-4.87); Red Cell Distribution Width 18 % (10-15)
[2019-10-05] MEDS: SPIRIVA Respimat* (tiotropium) 2.5 mcg/inh Inhaler INH SCH (07:52)
[2019-10-05 08:22] LABS: Platelet Count Platelets clumped. 10^3/uL (150-450); White Blood Count 8.7 10^3/uL (3.5-10.8)
[2019-10-05] MEDS: Atorvastatin* 40 MG TAB PO SCH (08:49)
[2019-10-05] MEDS: Pantoprazole TAB * 40 MG TAB PO SCH ×2 (08:49→20:50)
[2019-10-05] MEDS: Cetirizine* 10 MG TAB PO SCH (08:49)
[2019-10-05] MEDS: Losartan TAB* 25 MG PO SCH (08:49)
[2019-10-05] MEDS: Sertraline* 100 MG TAB PO SCH (08:49)
[2019-10-05] MEDS: Miconazole TOPICAL CREAM 2%* 30 GM TOPICAL SCH ×2 (08:53→20:50)
[2019-10-05] MEDS: Albuterol 2.5 MG/3 ML NEB.SOL* (0.083%) INH PRN (13:46)
--- NOTE | 2019-10-05 15:14 | PN ---
Subjective Date of Service: 10/05/19 Interval History: Ms. Rubi is not feeling well today. She generally feels poor and not like herself. No energy. She is not very hungry. Denies CP, SOB, abdominal pain, N/V/ D. Also c/o being uncomfortable in the recliner. Nursing reports patient is c/o SOB and malaise throughout the day. Family History: Unchanged from Admission Social History: Unchanged from Admission Past Medical History: Unchanged from Admission Objective Active Medications: Acetaminophen (Tylenol Tab*) 650 mg PO Q4H PRN MILD PAIN or TEMP > 100.4 Albuterol (Ventolin 2.5 Mg/3 Ml Neb.Sunshine*) 2.5 mg INH Q4H PRN SOB/WHEEZING Atorvastatin Calcium (Lipitor*) 40 mg PO DAILY [facility] Cetirizine HCl (Zyrtec*) 10 mg PO DAILY BRITTANI; Protocol Dextrose (D50w Syringe 50 Ml*) 25 gm IV PUSH .FOR FS < 60 - SS PRN FS < 60 Dextrose/Sodium Chloride (D5w 1/2 Ns 1000 Ml Bag*) 1,000 mls @ 50 mls/hr IV PER RATE BRITTANI Levothyroxine Sodium (Synthroid Tab*) 75 mcg PO DAILY@0600 [facility] Losartan Potassium (Cozaar Tab*) 75 mg PO DAILY [facility] Miconazole Nitrate (Monistat 2%*) 1 applic TOPICAL BID [facility] Montelukast Sodium (Singulair Tab*) 10 mg PO QPM [facility] Pantoprazole Sodium (Protonix Tab*) 40 mg PO BID [facility] Sertraline HCl (Zoloft*) 100 mg PO DAILY [facility] Tiotropium [place] (Spiriva Respimat 2.5 Mcg) 2 puff INH DAILY [facility] Vital Signs - 8 hr 10/05/19 10/05/19 10/05/19 07:55 08:00 14:18 Temperature 97.4 F Pulse Rate 95 91 92 Respiratory 13 24 15 Rate Blood Pressure 144/72 (mmHg) O2 Sat by Pulse 95 98 95 Oximetry Oxygen Devices in Use Now: None Appearance: Elderly female sitting in chair in NAD Ears/Nose/Mouth/Throat: Mucous Membranes Moist Neck: NL Appearance and Movements; NL JVP, Trachea Midline Respiratory: Symmetrical Chest Expansion and Respiratory Effort, Clear to Auscultation Cardiovascular: NL Sounds; No Murmurs; No JVD, RRR Abdominal: NL Sounds; No Tenderness; No Distention Extremities: No Edema Neurological: Alert and Oriented x 3 Lines/Tubes/Other Access: Clean, Dry and Intact Peripheral IV Nutrition: Taking PO's Result Diagrams: 10/05/19 05:10 10/05/19 05:12 Assess/Plan/Problems-Billing Assessment: Ms. Rubi is an 88 yo F with PMH of DM2, CAD, HTN, asthma, hypothyroidism; who presented to the ER with falls and weakness was found to have dehydration and QAMAR and subsequently developed an upper GI bleed. - Patient Problems (1) GI bleed Code(s): K92.2 - GASTROINTESTINAL HEMORRHAGE, UNSPECIFIED Comment: - Fatigue and SOB mostly resolved with transfusions - Received 3 unit PRBC (09/27/19, 09/29/19, 10/02/19) - Appreciate GI consult; inital plan was for colonoscopy, but prep was not completed; EGD on 09/28/19 showing a large duodenal ulcer with black base, presumed to be the source of bleeding - Soft diet - Continue pantoprazole (2) Vaginal sonia Code(s): B37.3 - CANDIDIASIS OF VULVA AND VAGINA Comment: - Resolved (3) Fall Comment: - Mechanical fall prior to admission - Suspect this was r/t dehydration from Bactrim and deconditioning - PT recommending [facility] at d/c (4) QAMAR (acute kidney injury) Code(s): N17.9 - ACUTE KIDNEY FAILURE, UNSPECIFIED Comment: - Resolved with IVF - Secondary to dehydration, possibly from Bactrim - Renal US unremarkable (5) Hyperkalemia Code(s): E87.5 - HYPERKALEMIA Comment: - Present on admission, now resolved (6) DM2 (diabetes mellitus, type 2) Comment: - Hypoglycemic again this morning despite the fact that she has been off Lantus >36 hours; suspect she depleted her glycogen stores - A1c 9% - Encourage PO intake; patient should have a high protein snack before bedtime - D5NS x1L (7) HTN (hypertension) Code(s): I10 - ESSENTIAL (PRIMARY) HYPERTENSION Comment: - Normotensive - Continue losartan (decreased dose) (8) Asthma Code(s): J45.909 - UNSPECIFIED ASTHMA, UNCOMPLICATED Comment: - Not in acute exacerbation - Continue Spiriva, Singulair (9) HLD (hyperlipidemia) Code(s): E78.5 - HYPERLIPIDEMIA, UNSPECIFIED Comment: - Continue atorvasatin (10) Hypothyroid Code(s): E03.9 - HYPOTHYROIDISM, UNSPECIFIED Comment: - Continue levothyroxine (11) DVT prophylaxis Comment: - SCDs only in the setting of GI bleed (12) DNR (do not resuscitate) Comment: Status and Disposition: Inpatient. Anticipate d/c to [facility] when medically stable, timeframe to be determined by clinical course. Attending: Ashu Cotton
[2019-10-05] MEDS ORDERED: D5W 1/2 NS 1000 ML BAG* 1,000 ML IV SCH (16:00)
[2019-10-05] MEDS: Montelukast Sodium TAB* 10 MG PO SCH (17:02)
[2019-10-06 05:21] LABS: ABS Basophils 0.1 10^3/ul (0-0.2); ABS Lymphocytes 2.1 10^3/ul (1.0-4.8); ABS Monocytes 0.7 10^3/ul (0-0.8); ABS Neutrophils 5.7 10^3/ul (1.5-7.7); Eosinophil % 0.2 %; Hematocrit 24 % (35-47); Hemoglobin 7.8 g/dL (12.0-16.0); Lymphocyte % 24.5 %; Mean Corpuscular HGB Conc 32 g/dL (31-36); Mean Corpuscular Hemoglobin 28 pg (27-31); Mean Corpuscular Volume 86 fL (80-97); Mean Platelet Volume 8.8 fL (7.4-10.4); Nucleated Red Blood Cells % 0.1; Red Cell Distribution Width 18 % (10-15); White Blood Count 8.6 10^3/uL (3.5-10.8)
[2019-10-06 05:24] LABS: BUN/Creatinine Ratio 17.2 (8-20); Calcium 8.5 mg/dL (8.6-10.3); EGFR African American 74.2 (>60); EGFR Non-African American 61.3 (>60); Potassium 4.1 mmol/L (3.5-5.0)
[2019-10-06 05:39] LABS: Platelet Count Platelets clumped. 10^3/uL (150-450); Platelet Morphology Clumped
[2019-10-06] MEDS: Levothyroxine TAB* 75 MCG TAB PO SCH (05:57)
[2019-10-06] MEDS: Cetirizine* 10 MG TAB PO SCH (08:17)
[2019-10-06] MEDS: Atorvastatin* 40 MG TAB PO SCH (08:17)
[2019-10-06] MEDS: Losartan TAB* 25 MG PO SCH (08:17)
[2019-10-06] MEDS: Pantoprazole TAB * 40 MG TAB PO SCH (08:18)
[2019-10-06] MEDS: Miconazole TOPICAL CREAM 2%* 30 GM TOPICAL SCH (08:18)
[2019-10-06] MEDS: SPIRIVA Respimat* (tiotropium) 2.5 mcg/inh Inhaler INH SCH (08:18)
[2019-10-06] MEDS: Sertraline* 100 MG TAB PO SCH (08:18)
--- NOTE | 2019-10-06 11:03 | DS ---
AMENDED REPORT NOW INCLUDES DESIGNATED COSIGNER CC: Dr. Abhay Fink * DISCHARGE SUMMARY: DATE OF ADMISSION: 09/26/19 DATE OF DISCHARGE: 10/06/19 PRIMARY CARE PROVIDER: Dr. Abhay Fink. ATTENDING PHYSICIAN: Dr. Ashu Cotton.* (DICTATED BYAMARILYS BRITO NP) PRIMARY DIAGNOSES: 1. Upper gastrointestinal bleed secondary to large duodenal ulcer. 2. Vaginal sonia. 3. Acute kidney injury. 4. Hyperkalemia. 5. Hypoglycemia. SECONDARY DIAGNOSES: 1. Diabetes mellitus type 2. 2. Hypertension. 3. Asthma. 4. Hyperlipidemia. 5. Hypothyroidism. 6. Coronary artery disease. STUDIES WHILE IN THE HOSPITAL: 1. EKG on 09/26/19 shows normal sinus rhythm with a rate of 96, Q waves present in the inferior leads, no ST changes. 2. 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 Mild atrophy for age. Otherwise negative noncontrast head CT. 3. Chest x-ray on 09/26/19 reads as no radiographic evidence of acute cardiopulmonary disease. 4. Right foot x-ray on 09/26/19 reads as there are no radiographic signs of osteomyelitis. 5. Renal ultrasound on 09/26/19 reads as normal ultrasound of the kidneys. 6. Chest x-ray on 09/27/19 reads as findings consistent with COPD. No evidence of acute disease. 7. Transthoracic echocardiogram on 09/28/19 reads as left ventricular systolic function is hyperdynamic. The estimated ejection fraction is 65% to 70%. There is turbulence and increased velocities in the left ventricular outflow tract measuring 2.4 msec and up to 2.7 msec with Valsalva. Consistent with mild left ventricular outflow tract obstruction. Wall motion is normal. There are no regional wall motion abnormalities. There is trace to mild MR. Findings are consistent with mild . There is trace to mild AR. There is mild TR. No study available for comparison. 8. Barium swallow study on 09/30/19 reads as intermittent laryngeal vestibule penetration with 1 questionable episode of aspiration below the vocal cords. 9. Chest x-ray on 10/05/19 reads as stigmata of obstructive lung disease. No acute pulmonary or cardiac process evident. CONSULTATIONS WHILE IN THE HOSPITAL: 1. Dr. Edouard from GI. 2. Dr. Harding from GI. 3. Dr. Jaquez from GI. PROCEDURES WHILE IN THE HOSPITAL: 1. EGD on 09/28/[address] Harding. HISTORY OF PRESENT ILLNESS AND HOSPITAL COURSE: Ms. Rubi is an 88-year-old female with past medical history of coronary artery disease, hypertension, and asthma, who presented to the emergency room on 09/26/19 after a fall. Please see the history and physical by Dr. Yoder for complete summary of the events leading up to this hospitalization. In short, the patient was recently on Bactrim for cellulitis on her right great toe. The cellulitis was noted to affect her gait, and after being on the Bactrim, the patient became dehydrated and had a fall at home. In the emergency room, she was noted to have acute kidney injury with a creatinine of 3. Lactic acid was elevated secondary to dehydration and not representative phlebotomy services of infection. She was hyperkalemic, again likely secondary to dehydration. CRP was noted to be elevated at 197. The patient and her family expressed interest in rehab and the patient was admitted by the hospitalist service. There was no evidence of continued infection in the right great toe. On , GI was consulted due to bloody stool. Initially, the plan for the patient was to undergo a colonoscopy, although she was not able to complete the prep and she ultimately did undergo an EGD on 09/28/19. At that point, she was noted to have a large duodenal ulcer with a black base suspected to be the source of bleeding. Hemoglobin did drop as low as 7.1. The patient was placed on PPI. She received a total of 3 transfusions of packed red blood cells on , 09/29/19, and 10/02/19 as H and H continued to slowly trend down. The patient was having continued dark stool and so was suspected that the ulcer still had a slow bleed. Gastroenterology indicated that if the ulcer did continue to bleed, the patient would require a repeat EGD, though noted she is at high risk of undergoing another procedure and that the ulcer was quite large and pitted and so there there was a high risk of complications such as perforation with treatment of the ulcer base. They recommended conservative management with PPI and monitoring H and H. Since the patient's last transfusion on 10/02/19, H and H has remained relatively stable with hemoglobin around 8. H and H this morning was noted to be 7.8 and 24. The patient has been switched to an oral PPI, which she has been tolerating well. Acute kidney injury has resolved with administration of IV fluids and creatinine today at 0.87. The patient did have some vaginal itching related to vaginal sonia, which has resolved after a dose of fluconazole and topical miconazole. Hyperkalemia has resolved with rehydration. Over the last couple of days, the patient was noted to have some hypoglycemia, which started on the morning of 10/04/19 when glucose was noted to be 47. The patient was conscious , though symptomatic at this time. She had been on the Lantus here in the hospital, and Lantus dose was cut in half after that episode of hypoglycemia, though the following morning on 10/05/19 glucose was noted to be 40. At that point, all insulin and metformin were discontinued. It is suspected that the patient likely depleted her glycogen stores secondary to the significant GI bleed. She did receive a small amount of D5 normal saline overnight and fasting glucose this morning was noted to be 150. At this point, GI bleed appears to have resolved and hypoglycemia also appears to have resolved. On exam, the patient reports feeling well. She offers no complaints this morning. She is alert and oriented x4. She has no focal neurological deficits. Heart has a regular rate and rhythm without murmurs, rubs, or gallops. Lungs are clear to auscultation without rhonchi, wheezes, or rubs. Abdomen is soft, nontender to palpation. There is no edema. Physical exam was otherwise benign. Ms. Rubi is stable for discharge home today. Most recent vitals are as follows: Temp 97.6, heart rate 84, respiratory rate 18, oxygen saturation 98% on room air, blood pressure 120/57. DISCHARGE MEDICATIONS: New medications: 1. Pantoprazole 40 mg p.o. b.i.d. Changed medication: 1. Losartan 75 mg p.o. daily (previously was 100 mg daily). Continued medications: 1. Atorvastatin 40 mg p.o. daily. 2. Fexofenadine 180 mg p.o. daily. 3. Levothyroxine 75 mcg p.o. daily. 4. Singulair 10 mg p.o. at bedtime. 5. Sertraline 100 mg p.o. daily. 6. Tiotropium 1 cap inhalation daily. 7. Acetaminophen 650 mg p.o. q.4 hours p.r.n. fever and pain. 8. Brovana 15 mcg inhalation b.i.d. 9. Budesonide neb 0.4 mg inhalation b.i.d. 10. Docusate 100 mg p.o. b.i.d. 11. Epi 0.3 mg IM once p.r.n. allergy symptoms. 12. Hydrocortisone suppository 25 mg MD b.i.d. p.r.n. hemorrhoids. 13. Ipratropium neb 0.5 mg inhalation b.i.d. 14. Milk of mag 30 mL p.o. b.i.d. p.r.n. constipation. 15. Senna 1 tab p.o. at bedtime p.r.n. constipation. 16. Tramadol 50 mg p.o. q.6 hours p.r.n. pain. 17. Vagisil 1 application topically t.i.d. p.r.n. itching. Discontinued medications: 1. Januvia. 2. Metformin. 3. Glipizide. 4. Jardiance. 5. Ibuprofen. 6. Lovenox. 7. Aspirin. DISCHARGE PLAN: Ms. Rubi will be discharged to rehab at [facility]. Activity will be as tolerated. Diet will be soft as tolerated per recommendations from GI. Medications are as noted above. The patient should remain on a PPI b.i.d. for the indefinite future due to the presence of the large duodenal ulcer. Losartan dosing has been decreased and blood pressures have been stable on this dosing. Many of her medications have been discontinued including all of her diabetes medications due to hypoglycemia. I suspect that these medications could be restarted slowly, though at this point the patient's fasting glucose this morning was 150 off of all diabetic medications and I would like to avoid any further episodes of hypoglycemia; therefore I think it is soria to continue to hold this at least for a couple of days. The patient had previously been on Lovenox (unclear if she was actually taking this and why) and aspirin, which should be stopped due to the presence of GI bleed. Aspirin can be restarted at some point in the future and that will need to be determined by the patient's PCP. Additionally, the patient had been taking ibuprofen prior to admission, which likely contributed to this duodenal ulcer and she should no longer take any ibuprofen or other NSAIDs going forward. I would recommend frequent blood glucose monitoring due to known episodes of hypoglycemia. I would also at this point recommend obtaining an H and H at least weekly and monitoring for dark stool as there may still be a very slow bleed at the ulcer site. She can continue her other usual medications as noted above. She will need to follow up with a provider at [facility] upon her arrival and can follow up with her primary care provider after discharge. She should return to the emergency room or nearest hospital for any worsening of symptoms, shortness of breath, lightheadedness, dizziness, chest discomfort, high fevers, chills, night sweats, loss of consciousness or any other worrisome signs or symptoms. DISCHARGE CONDITION: Stable. DISCHARGE DISPOSITION: snf facility, [facility]. This is a summarized report of a complex medical history and hospital stay. For further details, please see the entire medical record. TIME SPENT: Approximately 50 minutes was spent on this discharge. AMARILYS BRITO NP [id number]/[facility] #: [id number] ADILENE
[2019-10-06 14:21] VITALS: BP 123/60
== END 2019-10-06 14:05 | DRG 378 ==
LOC: ED 00:54 → MED 04:22 → ICU 09-27 18:03 → MED 09-29 21:08
PROVIDERS: ADMIT Student in an Organized Health Care Education/Training Program; ATTEND Internal Medicine
PROC: 0DJ08ZZ Inspection of Upper Intestinal Tract, Via Natural or Artificial Opening Endoscopic (ICD-10-PCS; principal; 2019-09-28)
PROC: 30233N1 Transfusion of Nonautologous Red Blood Cells into Peripheral Vein, Percutaneous Approach (ICD-10-PCS; 2019-10-02)
DX: K26.4 Chronic or unspecified duodenal ulcer with hemorrhage (principal); N17.9 Acute kidney failure, unspecified; E11.9 Type 2 diabetes mellitus without complications; E03.9 Hypothyroidism, unspecified; E78.00 Pure hypercholesterolemia, unspecified; I10 Essential (primary) hypertension; J44.9 Chronic obstructive pulmonary disease, unspecified; H91.90 Unspecified hearing loss, unspecified ear; F32.9 Major depressive disorder, single episode, unspecified; M19.019 Primary osteoarthritis, unspecified shoulder; M47.9 Spondylosis, unspecified; E86.0 Dehydration; I25.10 Atherosclerotic heart disease of native coronary artery without angina pectoris; E87.5 Hyperkalemia; E78.5 Hyperlipidemia, unspecified; K44.9 Diaphragmatic hernia without obstruction or gangrene; K55.21 Angiodysplasia of colon with hemorrhage; B37.3 Candidiasis of vulva and vagina; W19.XXXA Unspecified fall, initial encounter; Z88.0 Allergy status to penicillin; Z88.8 Allergy status to other drugs, medicaments and biological substances; Z97.4 Presence of external hearing-aid; Y92.002 Bathroom of unspecified non-institutional (private) residence as the place of occurrence of the external cause
CPT/HCPCS: 36415; 70450; 71045; 71046; 74230; 76775; 80048; 80053; 81003; 81015; 82272; 82550; 83036; 83605; 84484; 85014; 85018; 85025; 85027; 85049; 85610; 86140; 86850; 86900; 86901; 86922; 87086; 87106; 87641; 90732; 93005; 93306; 94640; 99156; 99157; 99284; A9270-GY; G8978-GP-CK; G8979-GP-CI; G8979-GP-CJ; J1644; J1940; J2250; J3010; J3535; P9040